=== PATIENT | female | born 1930 | race Caucasian/White ===

== ENCOUNTER → 2016-07-08 | Outpatient (CLI) | payer OTHER, BC ==
[~2016-07-08] MED LIST: ACCL20 PO; BIOT1TAB2 PO; CALCGRA15 PO; CHOL1CAP57 PO; COEN200C4 PO; CRAN1CAP15 PO; CYAN1LOZ2 SL; DESL1TAB5 PO; DICL1GEL12 TP; ERGO500037 PO; MAXAIR; MINO50TA PO; MULTLIQ PO; NASONEX NAE; NCY50 PO; VITBC PO
[2016-07-08 09:51] LABS: BASO % 0.5 %; BASO ABS # 0.02 K/uL (0-0.2); COMPLETE YES; EOS % 1.6 %; HEMATOCRIT 37.3 % (37-47); IG% 0.2 %; LYMPH % 39.2 %; LYMPH ABS # 1.73 K/uL (1.2-3.4); MEAN CELL VOLUME 89.7 fL (80-100); MEAN CORPUSCULAR HEMOGLOBIN 29.8 pg (25-34); MEAN CORPUSCULAR HGB CONC 33.2 g/dl (32-36); MEAN PLATELET VOLUME 10.4 fL (7.4-10.4); MONO % 11.1 %; NEUT % 47.4 %; PLATELET COUNT 201 K/uL (130-400); RED BLOOD COUNT 4.16 M/uL (4.2-5.4); WHITE BLOOD COUNT 4.41 K/uL (4.8-10.8)
[2016-07-08 09:57] LABS: ALT/SGPT 20 U/L (12-78); BLOOD UREA NITROGEN 27 mg/dl (7-18); BUN/CREATININE RATIO 35.3 (10-20); CALCIUM 8.7 mg/dl (8.5-10.1); CARBON DIOXIDE 21 mmol/L (21-32); CHLORIDE 111 mmol/L (98-107); CREATININE 0.75 mg/dl (0.60-1.20); GLUCOSE 94 mg/dl (70-99); POTASSIUM 3.9 mmol/L (3.5-5.1); SODIUM 145 mmol/L (136-145)
[2016-07-08 10:00] LABS: ALKALINE PHOSPHATASE 55 U/L (45-117); AST/SGOT 14 U/L (15-37)
--- NOTE | 2016-08-06 09:40 | CODING QUERY MEDICAL NECESSITY ---
CQSUPPORTING DIAGNOSIS NEEDED A supporting diagnosis is required for the test/procedure performed on this patient in order for us to be reimbursed by the patient's insurance. Please provide a supporting diagnosis for the following test/procedure listed below next to the test name along with your signature. *If there is no additional diagnosis for this patient that would support the following test/procedure please document that below next to the test/procedure. Test(s)/Procedure(s) that require a supporting diagnosis: DOS 07/08/16 VITAMIN D TEST Provider Signature: Date: Thank you Anuja Kelley Health Information Management Once completed, please kindly fax back to [phone] For questions please call [phone]
== END | disposition home or self-care (01) ==
LOC: C.LAB1850 08:21
PROVIDERS: ATTEND Internal Medicine
DX: C50.212 Malignant neoplasm of upper-inner quadrant of left female breast (principal); E55.9 Vitamin D deficiency, unspecified

== ENCOUNTER → 2016-10-19 | Outpatient (CLI) | payer OTHER, BC | END | disposition home or self-care (01) | LOC: C.LAB 07:59 | PROVIDERS: ATTEND Internal Medicine | DX: M85.80 Other specified disorders of bone density and structure, unspecified site (principal) ==

== ENCOUNTER → 2017-02-20 | Outpatient (CLI) | payer OTHER, BC ==
--- NOTE | 2017-02-20 15:58 | MAMMOGRAPHY REPORT ---
UNILATERAL RIGHT DIGITAL SCREENING MAMMOGRAM TOMOSYNTHESIS WITH CAD: 02/20/2017 CLINICAL HISTORY: Asymptomatic. Personal history of breast cancer. TECHNIQUE: Breast tomosynthesis in addition to standard 2D mammography was performed. Current study was also evaluated with a Computer Aided Detection (CAD) system. COMPARISON: Comparison is made to exams dated: 02/15/2015 mammogram, 02/19/2016 mammogram, 10/25/2014 m ammogram, and 08/27/2005 mammogram - [facility]. BREAST COMPOSITION: The tissue of the right breast is heterogeneously dense, which may obscure small masses. FINDINGS: No suspicious mass, architectural distortion or cluster of microcalcifications is seen in the right breast. There has been no significant interval change compared to prior exams. Status pos t left mastectomy. IMPRESSION: ACR BI-RADS CATEGORY 1: NEGATIVE There is no mammographic evidence of malignancy in the right breast. A 1 year screening mammogram is recommended. The patient will receive written notification of the results. Approximately 10% of breast cancers are not detected with mammography. A negative mammographic report should not delay biopsy if a clinically suggestive mass is present. Maribell Denis M.D. ah/:02/20/2017 14:29:01 Scrap Sawyer: Annamarie MEJÍA(Roger)(M), [facility] letter sent: Normal 1/2 BI-RADS Code: ACR BI-RADS Category 1: Negative
== END | disposition home or self-care (01) ==
LOC: C.MAMM 09:06
PROVIDERS: ATTEND Internal Medicine Rheumatology
DX: Z12.31 Encounter for screening mammogram for malignant neoplasm of breast (principal); M85.89 Other specified disorders of bone density and structure, multiple sites; E55.9 Vitamin D deficiency, unspecified; E61.8 Deficiency of other specified nutrient elements; Z85.3 Personal history of malignant neoplasm of breast; Z08 Encounter for follow-up examination after completed treatment for malignant neoplasm

== ENCOUNTER 2017-06-15 10:25 | Emergency (ER) | payer OTHER, BC ==
[~2017-06-15] VITALS: Ht 165.1 cm; Wt 60.0 kg
[2017-06-15 10:39] VITALS: BP 137/81; PULSE 73; TEMP 36.8; O2SAT 96; Ht 165.1 cm; Wt 60.0 kg
[2017-06-15] MEDS ORDERED: NYSTATIN SUSP 500,000 U/5 ML UDC PO STA (11:03)
[2017-06-15] MEDS ORDERED: NYSS/ PO (11:07)
[2017-06-15] MEDS ORDERED: COEN1CAP37 PO (11:11)
[2017-06-15] MEDS ORDERED: CRAN1CAP PO (11:11)
[2017-06-15] MEDS ORDERED: CLR10 PO (11:12)
--- NOTE | 2017-06-15 11:32 | EMERGENCY ROOM VISIT NOTE ---
History Report prepared by Inga: Tito Quevedo Under the Supervision of: Dr. Antonio Franco M.D. First contact with patient: 10:46 Chief Complaint: OTHER COMPLAINT Stated Complaint: DAY 3 OF MOUTH IRRITATION,POSSIBLE THRUSH History of Present Illness The patient is a 87 year old female who presents to the Emergency Room with complaints of mouth irritation that began three days ago. At this time, she began to notice what she describes as a "pile of sand mixed with applesauce" in the back of her mouth. She has never had thrush before but notes that her recently had it. She drank and ate this morning and states that it helped clear some of the substance in her throat. Pt denies LOC, headache, fevers, chills, diaphoresis, visual changes, neck pain, chest pain, breathing difficulties, nausea, vomiting, abdominal pain, back pain, melena, hematochezia , urinary symptoms, numbness, weakness, lymphadenopathy, rash, or other complaints. She denies any recent antibiotics. She feels like her dentures are fitting normally. Source of History: patient Onset: 3 days ago Position: throat Symptom Intensity: moderate Quality: other (Irritation) Timing: constant Note: She has a substance to the back of her throat. Review of Systems See HPI for pertinent positives and negatives. A total of six systems were reviewed and were otherwise negative. Past Medical & Surgical Medical Problems: (1) Asthma (2) Fibromyalgia (3) Gastroesophageal reflux disease (4) Rosacea Family History Omitted due to old age Social History Smoking Status: Never Smoker Alcohol Use: none Marital Status: Housing Status: lives with significant other Occupation Status: retired Current/Historical Medications Scheduled Biotin (Biotin), 5 MG PO DAILY Calcium Citrate (Calcium Citrate), 1 TSP PO DAILY Cholecalciferol (Vitamin D3), 1,000 UNIT PO DAILY Coenzyme Q10 (Ubidecarenone) (Co Q-10), 200 MG PO DAILY Cranberry-Vitamin C-Vitamin E (Cranberry Concentrate), 1 CAP PO DAILY Cyanocobalamin (Vitamin B 12), 500 MCG SL DAILY Ergocalciferol (Vitamin D 08731 Unit), 50,000 UNIT PO TW Loratadine (Claritin), 10 MG PO DAILY Multiple Vitamins W/ Minerals (Centrum), 1 TBS PO DAILY Nystatin (Nystatin Suspension), 5 ML PO QID Vitamin B Complex (Vitamin B Complex), 1 TABLET PO DAILY Zafirlukast (Zafirlukast), 20 MG PO DAILY Scheduled PRN Diclofenac Sodium (Topical) (Voltaren 1% Top Gel), 1 APPLN TP BID PRN for PRN Tapentadol HCl (Nucynta), 50 MG PO Q8 PRN for Pain Miscellaneous Medications Minocycline Hcl (Minocycline Hcl), 50 MG PO Allergies Coded Allergies: Erythromycin (Unverified Allergy, Severe, RASH, 06/15/17) Meperidine (Unverified Allergy, Severe, Dizziness and "itchiness" all over , 06/15/17) Morphine (Unverified Allergy, Severe, Dizziness and "itchiness" all over, 06/15/17) Adhesives (Verified Allergy, Mild, RASH, 06/15/17) Isopropyl Alcohol (Verified Allergy, Mild, RASH, 06/15/17) SAID CAN USE ONE WIPE TO DO IV. Diphenhydramine (Verified Allergy, Unknown, SEVERE SWEATING AND ITCHING, ) ALLERGY LISTED ON [facility] RECORDS Metaproterenol (Verified Allergy, Unknown, RASH, 06/15/17) Metronidazole (Verified Allergy, Unknown, REDNESS, 06/15/17) CAUSES INCREASING REDNESS TO AREA APPLIED ON NOSE Povidone Iodine (Verified Allergy, Unknown, RASH, 06/15/17) Theophylline (Verified Allergy, Unknown, FROM UNCODED ALL., 06/15/17) Zinc Oxide (Verified Allergy, Unknown, RASH, 06/15/17) Nitroglycerin (Verified Adverse Reaction, Intermediate, HYPOTENSION AND PT PASSES OUT, 06/15/17) ALLERGY LISTED ON [facility] RECORDS Tramadol (Verified Adverse Reaction, Intermediate, LOW BP, 06/15/17) Guaifenesin (Verified Adverse Reaction, Unknown, FROM VICODIN COUGH SYRUP- VERTIGO,HYPERALERTNESS, 06/15/17) CAUSES VERTIGO AND HYPER ALERTNESS PER PT Hydrocodone (Verified Adverse Reaction, Unknown, "VICODIN COUGH MED", MORPHINE AND LORTAB OK, 06/15/17) PT HAS RECEIVED MORPHINE AND APAP/HYDROCODE IN ER ON PRIOR ADMISSION. PT STATES HER REACTION HAS ONLY BEEN WITH COUGH MEDICINE HAVING HYDROCODONE AND GUIAFENESIN IN IT AND IT CAUSES VERTIGO AND HYPER ALERTNESS WITH EXCESSIVE WAKEFULLNESS. Lorazepam (Verified Adverse Reaction, Unknown, oversedation,fecal incontinence, 06/15/17) Physical Exam Vital Signs Date Time Temp Pulse Resp B/P (MAP) Pulse Ox O2 Delivery O2 Flow Rate FiO2 06/15/17 10:39 36.8 73 18 137/81 96 Room Air Physical Exam GENERAL: Awake, alert, well-appearing, in no distress HENT: Normocephalic, atraumatic. Oropharynx reveals scattered white patches to the pallet and oral mucosa. Tongue appeared to be normal. EYES: Normal conjunctiva. Sclera non-icteric. NECK: Supple. No nuchal rigidity. FROM. No JVD. No adenopathy. RESPIRATORY: Clear to auscultation. CARDIAC: Regular rate, normal rhythm. Extremities warm and well perfused. Pulses equal. MUSCULOSKELETAL: Chest examination reveals no tenderness. No joint edema. NEURO: Normal sensorium. No sensory or motor deficits noted. SKIN: No rash or jaundice noted. Medical Decision & Procedures Medications Administered Medications (Trade) Dose Ordered Sig/Todd Route Start Time Stop Time Status Last Admin Dose Admin Nystatin (Mycostatin Susp) 5 ml NOW STAT PO 06/15/17 11:03 06/15/17 11:05 DC 06/15/17 11:24 5 ML ED Course 1046: The patient was evaluated in room D5. A complete history and physical exam was performed. 1130: I reevaluated the patient. Discussed results and discharge instructions: She verbalized understanding and agreement. The patient is ready for discharge. Medical Decision The patient presented to the emergency department complaining of a white patches and plaques in her mouth on the oral mucosa. Differential includes thrush, aphthous ulcer, complication of dentures, bacterial infection, as well as others. Physically her exam did seem to be consistent with thrush. The patient was ordered a dose of nystatin swish and swallow. A prescription was sent to her pharmacy. I encouraged her follow-up closely with her primary physician. If she worsens in any way she will be back. By the evaluation outlined above other emergent etiologies such as those listed in the differential, as well as others, were deemed relatively unlikely. The patient was educated about the findings as listed above. All questions were answered and the patient was pleased with the treatment. Return instructions were outlined and the patient was discharged in stable condition. The patient was referred to her PCP for follow-up for a recheck of the current condition. Medication Reconcilliation Current Medication List: was personally reviewed by me Blood Pressure Screening Patient's blood pressure: Elevated blood pressure Blood pressure disposition: Referred to PCP Impression Primary Impression: Thrush Adalidibe Attestation The scribe's documentation has been prepared under my direction and personally reviewed by me in its entirety. I confirm that the note above accurately reflects all work, treatment, procedures, and medical decision making performed by me. Departure Information Dispostion Home / Self-Care Prescriptions Nystatin (Nystatin Suspension) 1 Ml Susp 5 ML PO QID for 7 Days, #140 ML Prov: Antonio Franco MD 06/15/17 Referrals Foster Garcia M.D. (PCP) Forms HOME CARE DOCUMENTATION FORM, IMPORTANT VISIT INFORMATION, WORK / SCHOOL INSTRUCTIONS Patient Instructions My [facility] Additional Instructions Nystatin swish and swallow 5 mL's 4 times a day for one week. Continue current medications. Return to the ER immediately for spreading redness, fevers, pus-like drainage, severe pain, inability to swallow, difficulty breathing, or as needed. Follow-up with your primary care physician in 2 to 3 days for a recheck of your current condition.
== END 2017-06-15 11:35 | disposition home or self-care (01) ==
LOC: C.EDB 10:28 → C.EDD 11:35
DX: B37.0 Candidal stomatitis (principal); J45.909 Unspecified asthma, uncomplicated; R03.0 Elevated blood-pressure reading, without diagnosis of hypertension

== ENCOUNTER 2019-05-21 10:16 | Inpatient (IN) ==
[2019-05-21] MEDS ORDERED: ONDANSETRON INJ 2 MG/ML 2 ML VIAL IV STA (11:10)
[2019-05-21] MEDS ORDERED: SODIUM CHLORIDE 0.9% 1000ML 1,000 ML IV SCH (11:15)
[2019-05-21 12:00] LABS: Appearance Urine Clear (Clear); Bacteria Urine Automated Negative (Negative); Bilirubin Urine Negative (Negative); Blood Urine 1+ (Negative); Color Urine Yellow; Glucose Urine UA Negative (Negative); Ketones Urine Negative (Negative); Leukocyte Esterase Urine Negative (Negative); Nitrite Urine Negative (Negative); Protein Urine Negative (Negative); Urobilinogen Urine Negative (Negative)
[2019-05-21 12:05] LABS: Basophils # (auto) 0.01 K/uL (0-0.2); Basophils % (auto) 0.2 %; Eosinophils # (auto) 0.01 K/uL (0-0.5); Eosinophils % (auto) 0.2 %; Hematocrit (blood only) 38.4 % (37-47); Hemoglobin 12.7 g/dL (12.0-16.0); Immature Granulocytes # (auto) 0.01 K/uL (0.00-0.02); Immature Granulocytes % (auto) 0.2 %; Lymphocytes # (auto) 1.09 K/uL (1.2-3.4); Lymphocytes % (auto) 19.1 %; Mean Corpuscular Hemoglobin 29.9 pg (25-34); Mean Corpuscular Hgb Conc 33.1 g/dL (32-36); Mean Corpuscular Volume 90.4 fL (80-100); Mean Platelet Volume 9.9 fL (7.4-10.4); Monocytes # (auto) 0.38 K/uL (0.11-0.59); Monocytes % (auto) 6.7 %; Neutrophils % (auto) 73.6 %; Platelet Count 224 K/uL (130-400); RDW Standard Deviation 43.1 fL (36.4-46.3); Red Blood Count 4.25 M/uL (4.2-5.4)
[2019-05-21 12:21] LABS: Albumin Level 3.9 gm/dl (3.4-5.0); BUN Creatinine Ratio 26.3 (10-20); Calcium 8.9 mg/dl (8.5-10.1); Creatinine Clr Calc Pharmacy 45.7 ml/min; Est GFR (African American) 79.2; Est GFR (Non-African American) 68.4; Potassium 3.8 mmol/L (3.5-5.1)
[2019-05-21] MEDS: fentaNYL citrate 100 MCG/2 ML VIAL IV PRN ×2 (12:21→14:00)
--- NOTE | 2019-05-21 12:23 | Ultrasound Report ---
ULTRASOUND RIGHT UPPER QUADRANT ABDOMEN CLINICAL HISTORY: Right upper quadrant abdominal pain. COMPARISON STUDY: Abdominal CT dated 04/27/2019. TECHNIQUE: Real-time, grayscale, and color flow sonography of the right upper quadrant of the abdomen was performed. Images are reviewed in the transverse and longitudinal planes. FINDINGS: Liver: The liver is normal in size and echotexture. There is no intrahepatic biliary ductal dilatatio n. The main portal vein is patent. Gallbladder: There are large calcified shadowing gallstones. The gallbladder is distended, the gallbl adder wall is top normal in thickness measuring up to 3 mm. No pericholecystic fluid is identified. A sonographic Golden's sign is reportedly absent. The common bile duct measures up to 0.6 cm in diamet er. Pancreas: Visualized portions of the pancreatic head and body are normal in appearance. Right kidney: Survey images of the right kidney demonstrate normal size and echotexture. There is no hydronephrosis. Ascites: None. IMPRESSION: The gallbladder is distended and there are numerous calcified gallstones. The gallbladder wall is top normal in thickness and a sonographic Golden's sign is reportedly absent. Findings are e quivocal for acute cholecystitis which is not excluded. If there is strong clinical concern for saritha cystitis a nuclear hepatobiliary scan could be considered to assess for patency of the cystic duct. ACT 112: Negative or not required by law. Electronically signed by: David Bazan M.D. 05/21/2019 12:22 PM
[2019-05-21 12:24] LABS: Albumin Globulin Ratio 1.1 (0.9-2); Bilirubin,Total 0.6 mg/dl (0.2-1); Globulin 3.7 gm/dl (2.5-4.0); Total Protein 7.6 gm/dl (6.4-8.2)
[2019-05-21] MEDS ORDERED: LORazepam 0.5 MG/1 ML VIAL IV STA (12:33)
--- NOTE | 2019-05-21 13:19 | Emergency Department Note ---
Entered by Jj Frey acting as a scribe for History of Present Illness General Chief complaint: Back Injury/Pain Stated complaint: BACK PAIN Source: patient History of Present Illness Provider complaint: Back pain Onset (ago): day(s) 1 Location: back Severity: similar to prior episodes Pain Consistency: + constant Maximum Pain Intensity: 10 Current Pain Intensity: 10 Quality: + stabbing Relieved By: + medication Associated symptoms: + nausea/vomiting (No vomiting) The patient is an 89 year old female who presents to the Emergency Room with complaints of constant lower back pain that has been an issue for more than 15 years but became acutely worse last night. The patient rates the pain as a 10/10 and notes it is a stabbing sensation. The patient states she took a 5mg oxycodone around 03:00 and it did temporarily relieve her symptoms for a little over an hour. The patient also endorses constant nausea and states she had a recent CT done that showed gallstones. The patient denies any vomiting. Home Medications Home Medications Medication Instructions Recorded Confirmed Type zafirlukast 20 mg tablet See Rx Instructions .ROUTE 01/22/19 05/21/19 Rx .COMPLEX #60 tablet zoledronic nsug-jmcvvpwo-tmzst 5 5 mg IV YEARLY #100 ml 01/22/19 05/21/19 Rx mg/100 mL in mannitol 5 %-water intravenous piggybck cranberry conc-ascorbic acid 1 cap PO DAILY 01/26/19 05/21/19 History loratadine 10 mg tablet 10 mg PO DAILY PRN tab 01/26/19 05/21/19 History vitamin B complex 1 cap PO DAILY 01/26/19 05/21/19 History acetaminophen 500 mg capsule 500 mg PO BID cap 02/18/19 05/21/19 History biotin 5 mg capsule 5 mg PO QAM 02/18/19 05/21/19 History coenzyme Q10 10 10 mg capsule 10 mg PO DAILY cap 02/18/19 05/21/19 History minocycline 50 mg capsule 50 mg PO QAM 02/18/19 05/21/19 History calcium carbonate-vitamin D3 1 ea PO BIDM 05/21/19 05/21/19 History diclofenac sodium 4 gm TOP UD 05/21/19 05/21/19 History ergocalciferol (vitamin D2) 50,000 units PO TUFR@1200 05/21/19 05/21/19 History qrcyxgth-xpr-sxktvow gluconate 15 ml PO QAM 05/21/19 05/21/19 History [Centrum] oxycodone 5 mg PO UD 05/21/19 05/21/19 History Allergies Allergy/AdvReac Type Severity Reaction Status Date / Time erythromycin base Allergy Severe RASH Unverified 05/21/19 11:42 meperidine Allergy Severe Dizziness Unverified 05/21/19 11:42 and "itchiness" all over morphine Allergy Severe Dizziness Unverified 05/21/19 11:42 and "itchiness" all over adhesive Allergy Mild RASH Verified 05/21/19 11:42 isopropyl alcohol Allergy Mild RASH Verified 05/21/19 11:42 diphenhydramine Allergy Unknown SEVERE Verified 05/21/19 11:42 SWEATING AND ITCHING metaproterenol Allergy Unknown RASH Verified 05/21/19 11:42 metronidazole Allergy Unknown REDNESS Verified 05/21/19 11:42 povidone-iodine Allergy Unknown RASH Verified 05/21/19 11:42 theophylline Allergy Unknown FROM Verified 05/21/19 11:42 UNCODED ALL. zinc oxide Allergy Unknown RASH Verified 05/21/19 11:42 nitroglycerin AdvReac Intermediate HYPOTENSION Verified 05/21/19 11:42 AND PT PASSES OUT tramadol AdvReac Intermediate LOW BP Verified 05/21/19 11:42 guaifenesin AdvReac Unknown FROM Verified 05/21/19 11:42 VICODIN COUGH SYRUP-VERTIGO,HYPERALERTNESS hydrocodone AdvReac Unknown "VICODIN Verified 05/21/19 11:42 COUGH MED",MORPHINE AND LORTAB OK lorazepam AdvReac Unknown oversedation,fecal Verified 05/21/19 11:42 incontinence Past Med/Surg History Medical History Asthma (Chronic 02/02/13) Breast cancer (Acute) "Breast cancer, left breast, invasive ductal carcinoma, grade 3, 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, pT2N0, stage IIA" Breast cancer of upper-inner quadrant of left female breast (Chronic) Cholelithiasis (Chronic) Desmoid tumor (Acute) 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 Fibromyalgia (Chronic 02/02/13) Gastroesophageal reflux disease (Chronic 09/03/13) Hearing loss (Chronic) Hemorrhage following tonsillectomy and adenoidectomy Intractable back pain (Acute) Kidney stone (Acute) Low back pain (Chronic) Nonallopathic lesion of lumbar region (Acute 04/17/14) Osteoarthritis (Chronic) Osteopenia (Chronic) Peripheral neuropathy (Chronic) Rosacea (Chronic 02/02/13) 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) Vitamin B deficiency (Chronic) Surgical History H/O: hysterectomy History of colostomy (Chronic) History of mastectomy (Chronic) S/P gastric surgery S/P small bowel resection Family History Father Acute myocardial infarction History of heart valve replacement Congestive heart failure Mother Stroke syndrome Cardiomegaly Other Family history non-contributory Social History Preferred Language: Romanian Communication Ability: Effective 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 and A total of 10 systems reviewed and were otherwise negative Physical Exam Vital Signs Vital Signs - 24 hr 05/21/19 10:21 05/21/19 12:25 05/21/19 12:30 Temperature 36.7 C Temperature Source Oral Pulse Rate 74 72 74 Pulse Rate from SpO2 Sensor 73 74 Pulse Rhythm Regular Pulse Strength Normal Respiratory Rate 22 24 19 Respiratory Effort / Characteristics Non-Labored Spontaneous Respiratory Depth Normal Respiratory Pattern Regular Blood Pressure 173/95 H Blood Pressure Mean 121 Blood Pressure Position Sitting Pulse Oximetry 99 94 95 Oxygen Delivery Method Room Air Sepsis Recent Fever Within 48 Hours No Sepsis Action Taken by Nursing No Action Required 05/21/19 12:31 05/21/19 13:00 05/21/19 13:01 Temperature Temperature Source Pulse Rate 72 72 71 Pulse Rate from SpO2 Sensor 73 72 71 Pulse Rhythm Pulse Strength Respiratory Rate 18 12 15 Respiratory Effort / Characteristics Respiratory Depth Respiratory Pattern Blood Pressure 193/84 H 148/72 H Blood Pressure Mean 108 99 Blood Pressure Position Pulse Oximetry 96 94 94 Oxygen Delivery Method Sepsis Recent Fever Within 48 Hours Sepsis Action Taken by Nursing 05/21/19 13:30 05/21/19 13:31 05/21/19 14:00 Temperature Temperature Source Pulse Rate 76 76 74 Pulse Rate from SpO2 Sensor 76 76 73 Pulse Rhythm Pulse Strength Respiratory Rate 20 19 19 Respiratory Effort / Characteristics Respiratory Depth Respiratory Pattern Blood Pressure 165/71 H 172/87 H Blood Pressure Mean 102 115 Blood Pressure Position Pulse Oximetry 97 97 97 Oxygen Delivery Method Sepsis Recent Fever Within 48 Hours Sepsis Action Taken by Nursing 05/21/19 14:01 Temperature Temperature Source Pulse Rate 75 Pulse Rate from SpO2 Sensor 75 Pulse Rhythm Pulse Strength Respiratory Rate 21 Respiratory Effort / Characteristics Respiratory Depth Respiratory Pattern Blood Pressure Blood Pressure Mean Blood Pressure Position Pulse Oximetry 98 Oxygen Delivery Method Sepsis Recent Fever Within 48 Hours Sepsis Action Taken by Nursing Vital signs reviewed. General: Uncomfortable-appearing elderly female HEENT: No scleral icterus, PERRLA, neck supple. Atraumatic. Cardiovascular: Regular rate and rhythm, no extra sounds. Pulmonary: Clear to auscultation bilaterally, normal work of breathing. Abdomen: Soft, tender right upper quadrant with a fistula/ostomy to the right mid abdomen, nondistended, positive bowel sounds. Musculoskeletal: Atraumatic, no peripheral edema. No CVA tenderness. Neurologic: Patient awake alert and oriented x 3. Skin: Warm, dry, no rash Course Course 1109: Past medical records reviewed. The patient was evaluated in room C09, and a complete history and physical examination were performed. 1203: I spoke to nuclear medicine regarding a possible Hida scan. They informed me that we would need to wait 4 hours since the last pain medication dose and 6 hours if you want ejection fracture. He is not able to do this before 16:00. 1240: I reevaluated the patient and she is still in significant pain so I am ordering more pain medications. 1318: I updated the patient with results and we discussed the treatment plan. She is agreeable with the plan. 1336: I discussed the patient's case with Dr. Shaver - [facility] Hospitalist and she agreed to accept the patient for further evaluation. Consultations Consultation #1: I discussed the patient's case with Dr. Shaver - [facility] Hospitalist and she agreed to accept the patient for further evaluation. Time: 13:36 Administered Medications Discontinued Medications Fentanyl Citrate (Fentanyl Citrate) 25 mcg IV Q15M PRN PRN Reason: Pain Stop: 06/04/19 11:09 Last Admin: 05/21/19 14:00 Dose: 25 mcg Documented by: [id number] Admin: 05/21/19 12:21 Dose: 25 mcg Documented by: [id number] Sodium Chloride (Nss 1000ml) 1,000 mls @ 125 mls/hr IV .Q8H KELLI Stop: 06/20/19 11:14 Last Admin: 05/21/19 12:20 Dose: 125 mls/hr Documented by: [id number] Lorazepam (Ativan) 0.5 mg in 1 mls @ 1 mls/min IV NOW STA Stop: 05/21/19 12:34 Last Admin: 05/21/19 12:50 Dose: 1 mls/min Documented by: [id number] Ondansetron HCl (Zofran) 4 mg IV NOW STA Stop: 05/21/19 11:11 Last Admin: 05/21/19 12:21 Dose: 4 mg Documented by: [id number] Medical Decision Making Differential Diagnosis Differential diagnoses includes but is not limited to gastritis, peptic ulcer disease, GERD, gallbladder disease, pancreatitis, small bowel obstruction, acute coronary syndrome, pericarditis, ischemic bowel, irritable bowel disease, irritable bowel syndrome, appendicitis, diverticulitis, malignancy, hernia, urinary tract infection, torsion, perforation, trauma, infectious. Medical Records Attestation: I reviewed the patient's medical records. Home Medications Current Medication List: was personally reviewed by oh Laboratory Data Attestation: I reviewed the patient's lab results. Result diagrams: 05/21/19 11:48 05/21/19 11:48 Lab Results 05/21/19 05/21/19 05/21/19 Range/Units 11:34 11:48 11:48 WBC 5.70 (4.8-10.8) K/uL RBC 4.25 (4.2-5.4) M/uL Hgb 12.7 (12.0-16.0) g/dL Hct 38.4 (37-47) % MCV 90.4 (80-100) fL MCH 29.9 (25-34) pg MCHC 33.1 (32-36) g/dL RDW Std Deviation 43.1 (36.4-46.3) fL RDW Coeff of [place] 13.0 (11.5-14.5) % Plt Count 224 (130-400) K/uL MPV 9.9 (7.4-10.4) fL Immature Gran % (Auto) 0.2 % Neut % (Auto) 73.6 % Lymph % (Auto) 19.1 % [place] % (Auto) 6.7 % Eos % (Auto) 0.2 % Baso % (Auto) 0.2 % Immature Gran # (Auto) 0.01 (0.00-0.02) K/uL Neut # (Auto) 4.20 (1.4-6.5) K/uL Lymph # (Auto) 1.09 L (1.2-3.4) K/uL [place] # (Auto) 0.38 (0.11-0.59) K/uL Eos # (Auto) 0.01 (0-0.5) K/uL Baso # (Auto) 0.01 (0-0.2) K/uL Sodium 137 (136-145) mmol/L Potassium 3.8 (3.5-5.1) mmol/L Chloride 106 (98-107) mmol/L Carbon Dioxide 27 (21-32) mmol/L Anion Gap 4.0 (3-11) BUN 21 H (7-18) mg/dl Creatinine 0.78 (0.6-1.2) mg/dl Est Cr Clr Drug Dosing 45.7 ml/min Est GFR ( Amer) 79.2 Est GFR (Non-Af Amer) 68.4 BUN/Creatinine Ratio 26.3 H (10-20) Glucose 103 H (70-99) mg/dl Calcium 8.9 (8.5-10.1) mg/dl Total Bilirubin 0.6 (0.2-1) mg/dl AST 12 L (15-37) U/L ALT 21 (12-78) U/L Alkaline Phosphatase 77 (45-117) U/L Total Protein 7.6 (6.4-8.2) gm/dl Albumin 3.9 (3.4-5.0) gm/dl Globulin 3.7 (2.5-4.0) gm/dl Albumin/Globulin Ratio 1.1 (0.9-2) Lipase 175 (73-393) U/L Urine Color Yellow Urine Appearance Clear (Clear) Urine pH 5.0 (4.5-7.5) Ur Specific [place] 1.020 (1.000-1.030) Urine Protein Negative (Negative) Urine Glucose (UA) Negative (Negative) Urine Ketones Negative (Negative) Urine Blood 1+ H (Negative) Urine Nitrite Negative (Negative) Urine Bilirubin Negative (Negative) Urine Urobilinogen Negative (Negative) Ur Leukocyte Esterase Negative (Negative) Urine WBC (Auto) 1-5 (0-5) /hpf Urine RBC (Auto) 5-10 H (0-4) /hpf U Hyaline Cast (Auto) 1-5 (0-5) /lpf U Epithel Cells (Auto) 5-10 H (0-5) /lpf Urine Bacteria (Auto) Negative (Negative) Imaging Data Radiologist's Impression: Radiology results as stated below per my review and the radiologist's interpretation: ULTRASOUND RIGHT UPPER QUADRANT ABDOMEN CLINICAL HISTORY: Right upper quadrant abdominal pain. COMPARISON STUDY: Abdominal CT dated 04/27/2019. TECHNIQUE: Real-time, grayscale, and color flow sonography of the right upper q uadrant of the abdomen was performed. Images are reviewed in the transverse and longitudinal planes. FINDINGS: Liver: The liver is normal in size and echotexture. There is no intrahepatic biliary ductal dilatation. The main portal vein is patent. Gallbladder: There are large calcified shadowing gallstones. The gallbladder is distended, the gallbladder wall is top normal in thickness measuring up to 3 mm. No pericholecystic fluid is identified. A sonographic Golden's sign is reportedly absent. The common bile duct measures up to 0.6 cm in diameter. Pancreas: Visualized portions of the pancreatic head and body are normal in appearance. Right kidney: Survey images of the right kidney demonstrate normal size and echotexture. There is no hydronephrosis. Ascites: None. IMPRESSION: The gallbladder is distended and there are numerous calcified gallstones. The gallbladder wall is top normal in thickness and a sonographic Golden's sign is reportedly absent. Findings are equivocal for acute cholecystitis which is not excluded. If there is strong clinical concern for cholecystitis a nuclear hepatobiliary scan could be considered to assess for patency of the cystic duct. ACT 112: Negative or not required by law. Electronically signed by: David Bazan M.D. 05/21/2019 12:22 PM Blood Pressure Blood Pressure Findings: Elevated blood pressure Blood Pressure Disposition: further management by hospitalist MDM Narrative This patient was evaluated and appeared to be in no significant distress. IV access was obtained and laboratory work was drawn. Patient was medicated with IV fentanyl and Zofran. She was hydrated with normal saline solution. Ultrasound the right upper quadrant was performed and reveals evidence of cholelithiasis with top normal thickness gallbladder wall. Patient continued to have discomfort and seemed to be significantly anxious. She was given 0.5 mg of IV Ativan. Patient's laboratory work reveals a normal white blood cell count and normal LFTs. Consultation with nuclear medicine was placed regarding a HIDA scan as recommended by radiology. Patient had received the fentanyl shortly prior to the call which precludes imaging studies for at least 4 hours. Given the patient's age and intractable pain, she will be evaluated by the hospitalist service for further management. I suspect the patient is suffering from a symptomatic cholelithiasis. Patient is aware of the plan and agrees. Impression & Plan Symptomatic cholelithiasis, Abdominal pain, right upper quadrant Discharge Plan Visit Data *Final* Discharge Date/Time: 05/21/19 15:10 Chief Complaint: Back Injury/Pain Stated Complaint: BACK PAIN ED Provider: Anna Boston Discharge Problem: Symptomatic cholelithiasis, Abdominal pain, right upper quadrant Patient Disposition: Admitted As Inpatient Discharge Instructions Interventions: ED Discharge Assessment Last Done: 05/21/19 15:10 The scribe's documentation has been prepared under my direction and personally reviewed by me in its entirety. I confirm that the note above accurately reflects all work, treatment, procedures, and medical decision making performed by me.
--- NOTE | 2019-05-21 14:22 | History & Physical Report ---
Date of Service May 21, 2019 Assessment & Plan (1) Dehydration: 89-year-old female was admitted on 21 May 2019 after c/o acute on chronic left flank pain. Dehydration, acute on chronic left flank pain, fibromyalgia: Patient notes the acute worsening of some chronic left flank pain overnight. No noted fevers, anterior abdominal pain, vomiting, or change in her symptoms from previous history of same. On exam, has some tenderness on light palpation throughout her body consistent with a fibromyalgia flare. No midline spinal tenderness. She may have a bit of spasm due to relative dehydration accounting for her current flare. Given her history of breast cancer, she is at risk for bony metastases, however recent CT a/p did not show any overt bony lesions. - In ED, afebrile, not tachycardic or tachypneic, normal room SpO2. Mild dry oral MM. WBC 5. Normal electrolytes but elevated BUN. - In ED, treated with fentanyl, Zofran, Ativan, and some IVF. Patient says this improved but did not resolve her pain. - Will rehydrate with normal saline IVF at 80 mL an hour. Also provide a small amount of potassium for optimization. - Will treat pain with Tylenol q6h scheduled and Oxycodone 5 mg q8h prn severe pain. Hematuria: UA notes RBC 510 and epithelial cells 510. Patient notes some mild urinary incontinence chronically. Denies any dysuria or increased frequency. - Will rehydrate with IVF. Consider interval UA recheck in the next couple weeks. Elevated blood pressure: In ED as high as 173/95. No noted formal diagnosis of hypertension in her chart. Some of this elevation is likely situational. No evidence of acute end organ dysfunction. Recommend close follow-up upon discharge. Cholelithiasis: Patient notes the same over past few years and states she was told she is not a good surgical candidate. She says she was due to be seen by general surgery as an outpatient this coming Friday (23Dec) with Dr. Denton. Presently is not complaining of anterior abdominal pain and is not focally tender in her RUQ. - In ED, LFTs including AP and lipase were normal. RUQ ultrasound is reported as equivocal for acute cholecystitis but is distended and has multiple calcified gallstones. [Of note, a CT a/p on 26Nov noted a slightly thickened gallbladder wall.] - Will continue to monitor for now. No need for acute surgical evaluation. Ongoing medical issues: - Asthma: No present reports of respiratory symptoms. Continue home zafirlukast. - Peripheral neuropathy: Followed by neurology. Treated with Voltaren gel and Tylenol (both as needed) - Osteoarthritis, osteopenia: At home is on zoledronic acid. - Rosacea: Continue home minocycline. Code status: Full code. Diet: Regular. DVT prophy: Lovenox. PT/OT: Ordered. Disbo: Admit to [facility] for observation. Consulted case management for ongoing resource assistance (given that she lives alone). (2) Left flank pain: (3) Fibromyalgia: (4) Hematuria: (5) Elevated blood pressure reading: (6) Cholelithiasis: (7) Asthma: (8) Peripheral neuropathy: (9) Osteoarthritis: (10) Osteopenia: (11) Rosacea: History of Present Illness Primary Care Provider: Foster Garcia MD 89-year-old female requests evaluation of acute on chronic left flank pain. - Says she has had this same sort of pain for years. At times it will resolve for a couple of weeks. Most recently started again overnight without any known trauma, falls, fevers, or recent feeling of illness. She took an oxycodone which seemed to help but did not last long. Says that it radiates to various and different areas over the years, presently radiating to around her left hip. - Patient notes she also has some urinary incontinence. She says she has been seen by Dr. Cortez of urology and was told that her bladder does not completely empty. She presently denies any dysuria or increased frequency. - On review of systems review of her past medical history, patient says she was initially advised to have a radical mastectomy for her breast cancer diagnosed around 2014. She elected not to do this and was told that she is at increased risk for spread. - She also notes she has a history of gallbladder issues for many years now as well. At one point she says she was evaluated by Dr. Denton of general surgery and told that she was a very poor surgical candidate. The exact details are unclear. - Socially, patient says that she lives at home alone and is quite independent. She says she has home caregivers that come to her place near daily. However, she normally gets around driving herself. She says her only family nearby is her daughter who lives very close but has a history of schizophrenia. For example, patient was due to drive her daughter to a doctor's appointment today. - Past medical history includes asthma, breast cancer (2015), cholelithiasis, fibromyalgia, GERD, peripheral neuropathy, kidney stones, intractable back pain, vitamin B12 deficiency, sclerosing mesenteritis, short bowel syndrome, osteoarthritis, osteopenia, rosacea, hearing loss - Past surgical history includes colostomy (for desmoid tumor), left mastectomy, hysterectomy, tonsillectomy and adenoidectomy, foot surgery. - Social history includes denying smoking or alcohol use. Says she lives independently alone. Has some help with daytime caregivers. Only family nearby is a daughter who has schizophrenia, thus patient is daughters primary caregiver. Allergies Allergy/AdvReac Type Severity Reaction Status Date / Time erythromycin base Allergy Severe RASH Unverified 05/21/19 11:42 meperidine Allergy Severe Dizziness Unverified 05/21/19 11:42 and "itchiness" all over morphine Allergy Severe Dizziness Unverified 05/21/19 11:42 and "itchiness" all over adhesive Allergy Mild RASH Verified 05/21/19 11:42 isopropyl alcohol Allergy Mild RASH Verified 05/21/19 11:42 diphenhydramine Allergy Unknown SEVERE Verified 05/21/19 11:42 SWEATING AND ITCHING metaproterenol Allergy Unknown RASH Verified 05/21/19 11:42 metronidazole Allergy Unknown REDNESS Verified 05/21/19 11:42 povidone-iodine Allergy Unknown RASH Verified 05/21/19 11:42 theophylline Allergy Unknown FROM Verified 05/21/19 11:42 UNCODED ALL. zinc oxide Allergy Unknown RASH Verified 05/21/19 11:42 nitroglycerin AdvReac Intermediate HYPOTENSION Verified 05/21/19 11:42 AND PT PASSES OUT tramadol AdvReac Intermediate LOW BP Verified 05/21/19 11:42 guaifenesin AdvReac Unknown FROM Verified 05/21/19 11:42 VICODIN COUGH SYRUP-VERTIGO,HYPERALERTNESS hydrocodone AdvReac Unknown "VICODIN Verified 05/21/19 11:42 COUGH MED",MORPHINE AND LORTAB OK lorazepam AdvReac Unknown oversedation,fecal Verified 05/21/19 11:42 incontinence Home Medications Home Medications Medication Instructions Recorded Confirmed Type zafirlukast mg tablet See Rx Instructions .ROUTE 01/22/19 05/21/19 Rx .COMPLEX #60 tablet zoledronic qdvs-kynkvyse-yzmzo 5 5 mg IV YEARLY #100 ml 01/22/19 05/21/19 Rx mg/100 mL in mannitol 5 %-water intravenous piggybck cranberry conc-ascorbic acid 1 cap PO DAILY 01/26/19 05/21/19 History loratadine 10 mg tablet 10 mg PO DAILY PRN tab 01/26/19 05/21/19 History vitamin B complex 1 cap PO DAILY 01/26/19 05/21/19 History acetaminophen 500 mg capsule 500 mg PO BID cap 02/18/19 05/21/19 History biotin 5 mg capsule 5 mg PO QAM 02/18/19 05/21/19 History coenzyme Q10 10 10 mg capsule 10 mg PO DAILY cap 02/18/19 05/21/19 History minocycline 50 mg capsule 50 mg PO QAM 02/18/19 05/21/19 History calcium carbonate-vitamin D3 1 ea PO BIDM 05/21/19 05/21/19 History diclofenac sodium 4 gm TOP UD 05/21/19 05/21/19 History ergocalciferol (vitamin D2) 50,000 units PO TUFR@1200 05/21/19 05/21/19 History jerzamnq-qaa-amiojoy gluconate 15 ml PO QAM 05/21/19 05/21/19 History [Centrum] oxycodone 5 mg PO UD 05/21/19 05/21/19 History Past Med/Surg History Medical History Asthma (Chronic 02/02/13) Breast cancer (Acute) "Breast cancer, left breast, invasive ductal carcinoma, grade 3, 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, pT2N0, stage IIA" Breast cancer of upper-inner quadrant of left female breast (Chronic) Cholelithiasis (Chronic) Desmoid tumor (Acute) 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 Fibromyalgia (Chronic 02/02/13) Gastroesophageal reflux disease (Chronic 02/02/13) Hearing loss (Chronic) Hemorrhage following tonsillectomy and adenoidectomy Intractable back pain (Acute) Kidney stone (Acute) Low back pain (Chronic) Nonallopathic lesion of lumbar region (Acute 04/17/14) Osteoarthritis (Chronic) Osteopenia (Chronic) Peripheral neuropathy (Chronic) Rosacea (Chronic 02/02/13) 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) Vitamin B deficiency (Chronic) Surgical History H/O: hysterectomy History of colostomy (Chronic) History of mastectomy (Chronic) S/P gastric surgery S/P small bowel resection Family History Father Acute myocardial infarction History of heart valve replacement Congestive heart failure Mother Stroke syndrome Cardiomegaly Other Family history non-contributory Social History Preferred Language: Swedish Communication Ability: Effective Android Ios Developer Required: No Beliefs That Will Affect Care: None Current Living Situation: Alone Other Information That Helps Us Care for You: No Feels Safe at Home: Yes Safety Concerns: Feels Safe At This Time Smoking Status: Never smoker Do You Dip or Chew Tobacco: No ; Second Hand Exposure: No ; Tobacco Cessation Education Requested by Patient: No Hx Alcohol Use: No Hx Substance Use: Yes substance use type: opiates and painkillers Last Used Substance: Hours (ago) Last Used Substance Other:: 0300 Oxycodone per patient history Review of Systems Review of Systems: Constitutional: Denies fevers, chills, focal weakness Eyes: Denies any visual loss or diplopia ENT: Denies any ear/nose/throat pain or difficulty speaking or swallowing Respiratory: Denies any dyspnea, cough, hemoptysis Cardiovascular: Denies any chest pain or feeling of edema Gastrointestinal: Denies any abdominal pain, vomiting/diarrhea Musculoskeletal: Positive left flank pain. Skin: Denies any known acute rashes or lesions Neuro: Denies any headache, acute focal weakness or numbness, or difficulties with speech or swallow. Physical Exam Physical Exam: GENERAL: Awake, alert, well-appearing, in no acute distress. Very conversational. HENT: Normocephalic, atraumatic. Oropharynx has dry mucous membranes. EYES: Normal conjunctiva. Sclera non-icteric. NECK: Inspection normal. Supple and full ROM. No nuchal rigidity. CARDIAC: +S1S2 RRR, no murmurs. RESPIRATORY: Clear to auscultation. No wheezes or rales. Normal respiratory effort. GI: +BS, soft, non-distended. No overt focal tenderness to palpation including in the right upper quadrant. No rebound or guarding. Ostomy in place, pink and moist. EXTREMITIES: No pedal edema or calf tenderness. Moving all extremities naturally and easily. NEURO: No gross neuro deficits. However, she does have some mild and equally generalized tenderness on palpation of various areas of her body to include her arms, legs, abdomen, and back. She denies any focal tenderness over the th oracic or lumbar spine. Results & Data Vital Signs (Past 12 Hours) Vital Signs Temp Pulse Resp BP Pulse Ox 05/21/19 13:01 71 15 94 05/21/19 13:00 72 12 148/72 H 94 05/21/19 12:31 72 18 193/84 H 96 05/21/19 12:30 74 19 95 05/21/19 12:25 72 24 94 05/21/19 10:21 36.7 C 74 22 173/95 H 99 Laboratory Results 05/21/19 05/21/19 05/21/19 Range/Units 11:48 11:48 11:34 WBC 5.70 (4.8-10.8) K/uL RBC 4.25 (4.2-5.4) M/uL Hgb 12.7 (12.0-16.0) g/dL Hct 38.4 (37-47) % MCV 90.4 (80-100) fL MCH 29.9 (25-34) pg MCHC 33.1 (32-36) g/dL RDW Std Deviation 43.1 (36.4-46.3) fL RDW Coeff of Spencer 13.0 (11.5-14.5) % Plt Count 224 (130-400) K/uL MPV 9.9 (7.4-10.4) fL Immature Gran % (Auto) 0.2 % Neut % (Auto) 73.6 % Lymph % (Auto) 19.1 % [place] % (Auto) 6.7 % Eos % (Auto) 0.2 % Baso % (Auto) 0.2 % Immature Gran # (Auto) 0.01 (0.00-0.02) K/uL Neut # (Auto) 4.20 (1.4-6.5) K/uL Lymph # (Auto) 1.09 L (1.2-3.4) K/uL [place] # (Auto) 0.38 (0.11-0.59) K/uL Eos # (Auto) 0.01 (0-0.5) K/uL Baso # (Auto) 0.01 (0-0.2) K/uL Sodium 137 (136-145) mmol/L Potassium 3.8 (3.5-5.1) mmol/L Chloride 106 (98-107) mmol/L Carbon Dioxide 27 (21-32) mmol/L Anion Gap 4.0 (3-11) BUN 21 H (7-18) mg/dl Creatinine 0.78 (0.6-1.2) mg/dl Est Cr Clr Drug Dosing 45.7 ml/min Est GFR ( Amer) 79.2 Est GFR (Non-Af Amer) 68.4 BUN/Creatinine Ratio 26.3 H (10-20) Glucose 103 H (70-99) mg/dl Calcium 8.9 (8.5-10.1) mg/dl Total Bilirubin 0.6 (0.2-1) mg/dl AST 12 L (15-37) U/L ALT 21 (12-78) U/L Alkaline Phosphatase 77 (45-117) U/L Total Protein 7.6 (6.4-8.2) gm/dl Albumin 3.9 (3.4-5.0) gm/dl Globulin 3.7 (2.5-4.0) gm/dl Albumin/Globulin Ratio 1.1 (0.9-2) Lipase 175 (73-393) U/L Urine Color Yellow Urine Appearance Clear (Clear) Urine pH 5.0 (4.5-7.5) Ur Specific [facility] 1.020 (1.000-1.030) Urine Protein Negative (Negative) Urine Glucose (UA) Negative (Negative) Urine Ketones Negative (Negative) Urine Blood 1+ H (Negative) Urine Nitrite Negative (Negative) Urine Bilirubin Negative (Negative) Urine Urobilinogen Negative (Negative) Ur Leukocyte Esterase Negative (Negative) Urine WBC (Auto) 1-5 (0-5) /hpf Urine RBC (Auto) 5-10 H (0-4) /hpf U Hyaline Cast (Auto) 1-5 (0-5) /lpf U Epithel Cells (Auto) 5-10 H (0-5) /lpf Urine Bacteria (Auto) Negative (Negative) Medications Administered Fentanyl Citrate (Fentanyl Citrate) 25 mcg IV Q15M PRN PRN Reason: Pain Stop: 06/04/19 11:09 Last Admin: 05/21/19 14:00 Dose: 25 mcg Documented by: [id number] Admin: 05/21/19 12:21 Dose: 25 mcg Documented by: [id number] Sodium Chloride (Nss 1000ml) 1,000 mls @ 125 mls/hr IV .Q8H KELLI Stop: 06/20/19 11:14 Last Admin: 05/21/19 12:20 Dose: 125 mls/hr Documented by: [id number] Discontinued Medications Lorazepam (Ativan) 0.5 mg in 1 mls @ 1 mls/min IV NOW STA Stop: 05/21/19 12:34 Last Admin: 05/21/19 12:50 Dose: 1 mls/min Documented by: [id number] Ondansetron HCl (Zofran) 4 mg IV NOW STA Stop: 05/21/19 11:11 Last Admin: 05/21/19 12:21 Dose: 4 mg Documented by: [id number] Code Status & VTE Plan Code Status Full code VTE Prophylaxis Plan VTE Prophylaxis will be ordered: Yes Supervising Physician Co-Signing Physician Notes Pt seen and examined at the bedside with . I was involved in creating assessment and plan with Dr. Bermudez and I agree with his H&P. Physical Exam: GENERAL: Awake, alert, well-appearing, in no acute distress. Very conversational. HENT: Normocephalic, atraumatic. Oropharynx has dry mucous membranes. EYES: Normal conjunctiva. Sclera non-icteric. NECK: Inspection normal. Supple and full ROM. No nuchal rigidity. CARDIAC: +S1S2 RRR, no murmurs. RESPIRATORY: Clear to auscultation. No wheezes or rales. Normal respiratory effort. GI: +BS, soft, non-distended. No overt focal tenderness to palpation including in the right upper quadrant. No rebound or guarding. Ostomy in place, pink and moist. EXTREMITIES: No pedal edema or calf tenderness. Moving all extremities natura lly and easily. NEURO: No gross neuro deficits. However, she does have some mild and equally generalized tenderness on palpation of various areas of her body to include her arms, legs, abdomen, and back. She denies any focal tenderness over the thoracic or lumbar spine. Resident Activity Tracking Resident Involvement: Resident Care Provided Care Provided: Adult [facility] Medicine
[2019-05-21] MEDS ORDERED: LORATADINE 10 MG TAB PO PRN (15:42)
[2019-05-21] MEDS ORDERED: POTASSIUM CHLORIDE 20 MEQ TABCR PO ONE (15:42)
[2019-05-21] MEDS: SODIUM CHLORIDE 0.9% 1000ML 1,000 ML IV SCH (16:09)
[2019-05-21] MEDS: OXYCODONE HCL IR 5 MG TAB (IMMEDIATE RELEASE) PO PRN (16:45)
[2019-05-21] MEDS: HydrALAZINE 10 MG TAB PO PRN (17:17)
[2019-05-21] MEDS: ACETAMINOPHEN 325 MG TAB PO SCH ×2 (17:30→23:50)
[2019-05-21] MEDS: CALCIUM CARBONATE 1250MG TAB PO SCH (17:33)
[2019-05-21] MEDS ORDERED: OXYCODONE HCL IR 5 MG TAB (IMMEDIATE RELEASE) PO STA (17:54)
[2019-05-21] MEDS ORDERED: ENOXAPARIN INJ 30 MG/0.3 ML SYR SQ SCH (18:00)
[2019-05-21] MEDS: ONDANSETRON INJ 2 MG/ML 2 ML VIAL IV PRN (23:08)
[2019-05-21] MEDS: ZAFIRLUKAST 20 MG SCH (23:29)
[2019-05-22] MEDS: SODIUM CHLORIDE 0.9% 1000ML 1,000 ML IV SCH (05:33)
[2019-05-22] MEDS: ACETAMINOPHEN 325 MG TAB PO SCH ×3 (05:34→17:47)
[2019-05-22 07:22] LABS: BUN Creatinine Ratio 23.8 (10-20); Est GFR (African American) 73.5; Est GFR (Non-African American) 63.4; Potassium 4.2 mmol/L (3.5-5.1)
[2019-05-22] MEDS: CALCIUM CARBONATE 1250MG TAB PO SCH ×2 (08:20→17:47)
[2019-05-22] MEDS: VITAMIN B COMPLEX TAB PO SCH (08:20)
[2019-05-22] MEDS: MULTIVITAMIN TAB PO SCH (08:20)
[2019-05-22] MEDS: DICLOFENAC SOD 1% GEL 100 GM TUBE EXT SCH (08:21)
[2019-05-22] MEDS: HydrALAZINE 10 MG TAB PO PRN (08:25)
[2019-05-22] MEDS ORDERED: NON-FORMULARY MEDICATION (Cranberry Conc-Ascorbic Acid 1 CAP) PO SCH (09:00)
[2019-05-22] MEDS ORDERED: NON-FORMULARY MEDICATION (Coenzyme Q10 [Co Q-10] 10 MG) PO SCH (09:00)
[2019-05-22] MEDS ORDERED: NON-FORMULARY MEDICATION (Biotin 5 MG) PO SCH (09:00)
[2019-05-22] MEDS: ZAFIRLUKAST 20 MG SCH ×2 (10:17→16:01)
[2019-05-22 10:54] LABS: Appearance Urine Cloudy (Clear); Bilirubin Urine Negative (Negative); Blood Urine Negative (Negative); Cast Urine Automated 0 /lpf (0-5); Color Urine Yellow; Glucose Urine UA Negative (Negative); Ketones Urine Negative (Negative); Leukocyte Esterase Urine Negative (Negative); Nitrite Urine Negative (Negative); Protein Urine Negative (Negative); Urobilinogen Urine Negative (Negative)
[2019-05-22 11:12] LABS: RBC Urine Automated >30 /hpf (0-4)
[2019-05-22 11:13] LABS: Bacteria Urine Automated 2+ (Negative)
--- NOTE | 2019-05-22 11:49 | Surgery Consultation ---
Date of Consultation May 22, 2019 Assessment & Plan (1) Cholelithiasis: chronic gallstones with thick wall unlikely gallstones are symptomatic would order HIDA if negative would not recommend cholecystectomy Present on Admission?: Yes History of Present Illness Attending Physician: Mirella Shaver MD History of Present Illness The patient is an 89 year old female who presented to the Emergency Room with complaints of constant lower back pain that has been an issue for more than 15 years but became acutely worse last night. She described it as a stabbing sensation. Pain has mainly resolved but multiple other complaints. The patient has nausea and a CT scan done that showed gallstones which have been seen before along with a thick wall which is also chronic. The patient denies any vomiting. She is a poor surgical candidate with many previous operations and a chronic mucous fistula. Allergies Allergy/AdvReac Type Severity Reaction Status Date / Time erythromycin base Allergy Severe RASH Unverified 05/21/19 11:42 meperidine Allergy Severe Dizziness Unverified 05/21/19 11:42 and "itchiness" all over morphine Allergy Severe Dizziness Unverified 05/21/19 11:42 and "itchiness" all over adhesive Allergy Mild RASH Verified 05/21/19 11:42 isopropyl alcohol Allergy Mild RASH Verified 05/21/19 11:42 diphenhydramine Allergy Unknown SEVERE Verified 05/21/19 11:42 SWEATING AND ITCHING metaproterenol Allergy Unknown RASH Verified 05/21/19 11:42 metronidazole Allergy Unknown REDNESS Verified 05/21/19 11:42 povidone-iodine Allergy Unknown RASH Verified 05/21/19 11:42 theophylline Allergy Unknown FROM Verified 05/21/19 11:42 UNCODED ALL. zinc oxide Allergy Unknown RASH Verified 05/21/19 11:42 nitroglycerin AdvReac Intermediate HYPOTENSION Verified 05/21/19 11:42 AND PT PASSES OUT tramadol AdvReac Intermediate LOW BP Verified 05/21/19 11:42 guaifenesin AdvReac Unknown FROM Verified 05/21/19 11:42 VICODIN COUGH SYRUP-VERTIGO,HYPERALERTNESS hydrocodone AdvReac Unknown "VICODIN Verified 05/21/19 11:42 COUGH MED",MORPHINE AND LORTAB OK lorazepam AdvReac Unknown oversedation,fecal Verified 05/21/19 11:42 incontinence Home Medications Home Medications Medication Instructions Recorded Confirmed Type zafirlukast 20 mg tablet See Rx Instructions .ROUTE 01/22/19 05/21/19 Rx .COMPLEX #60 tablet zoledronic msbr-csrwawyr-imhwp 5 5 mg IV YEARLY #100 ml 01/22/19 05/21/19 Rx mg/100 mL in mannitol 5 %-water intravenous piggybck cranberry conc-ascorbic acid 1 cap PO DAILY 01/26/19 05/21/19 History loratadine 10 mg tablet 10 mg PO DAILY PRN tab 01/26/19 05/21/19 History vitamin B complex 1 cap PO DAILY 01/26/19 05/21/19 History acetaminophen 500 mg capsule 500 mg PO BID cap 02/18/19 05/21/19 History biotin 5 mg capsule 5 mg PO QAM 02/18/19 05/21/19 History coenzyme Q10 10 10 mg capsule 10 mg PO DAILY cap 02/18/19 05/21/19 History minocycline 50 mg capsule 50 mg PO QAM 02/18/19 05/21/19 History calcium carbonate-vitamin D3 1 ea PO BIDM 05/21/19 05/21/19 History diclofenac sodium 4 gm TOP UD 05/21/19 05/21/19 History ergocalciferol (vitamin D2) 50,000 units PO TUFR@1200 05/21/19 05/21/19 History oiuyoino-rkk-srdgwlv gluconate 15 ml PO QAM 05/21/19 05/21/19 History [Centrum] oxycodone 5 mg PO UD 05/21/19 05/21/19 History Patient History Medical History Asthma (Chronic 02/02/13) Breast cancer (Acute) "Breast cancer, left breast, invasive ductal carcinoma, grade 3, ER/OH/Her2- 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, pT2N0, stage IIA" Breast cancer of upper-inner quadrant of left female breast (Chronic) Cholelithiasis (Chronic) Desmoid tumor (Acute) 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 Fibromyalgia (Chronic 02/02/13) Gastroesophageal reflux disease (Chronic 02/02/13) Hearing loss (Chronic) Hemorrhage following tonsillectomy and adenoidectomy Intractable back pain (Acute) Kidney stone (Acute) Low back pain (Chronic) Nonallopathic lesion of lumbar region (Acute 04/17/14) Osteoarthritis (Chronic) Osteopenia (Chronic) Peripheral neuropathy (Chronic) Rosacea (Chronic 02/02/13) 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) Vitamin B deficiency (Chronic) Surgical History H/O: hysterectomy History of colostomy (Chronic) History of mastectomy (Chronic) S/P gastric surgery S/P small bowel resection Family History Father Acute myocardial infarction History of heart valve replacement Congestive heart failure Mother Stroke syndrome Cardiomegaly Other Family history non-contributory Social History Preferred Language: Latvian Communication Ability: Effective Spout Worker Required: No Beliefs That Will Affect Care: None Current Living Situation: Alone Other Information That Helps Us Care for You: No Feels Safe at Home: Yes Safety Concerns: Feels Safe At This Time Smoking Status: Never smoker Do You Dip or Chew Tobacco: No ; Second Hand Exposure: No ; Tobacco Cessation Education Requested by Patient: No Hx Alcohol Use: No Hx Substance Use: Yes substance use type: opiates and painkillers Last Used Substance: Hours (ago) Last Used Substance Other:: 0300 Oxycodone per patient history Review of Systems Constitutional: no fever and no chills Respiratory: no dyspnea Cardiovascular: no chest pain Gastrointestinal: + nausea; no abdominal pain, no bloating and no vomiting Genitourinary: no dysuria Musculoskeletal: + back pain Integumentary: no rash Physical Exam Constitutional: WD/WN, vitals as above average body habitus Neck: trachea midline Respiratory: normal respiratory effort, lungs clear to auscultation Cardiovascular: RRR, no murmur, no edema Gastrointestinal (Abdomen): Inspection/Auscultation: abdomen normal to inspection and normal bowel sounds; abdomen not distended Percussion/Palpation: abdomen nontender and no guarding healed incisions and mucous fistula Musculoskeletal: Head/Neck/Chest: normocephalic Skin: no rashes, warm and dry Neurologic: moves all extremities; no focal motor deficits Psychiatric: Orientation: alert and oriented x 3 Results & Data Vital Signs (Past 12 Hours) Vital Signs Temp Pulse Resp BP Pulse Ox 12/21/19 08:00 37.9 C H 66 16 173/87 H 98 Diagnostic Findings ULTRASOUND RIGHT UPPER QUADRANT ABDOMEN CLINICAL HISTORY: Right upper quadrant abdominal pain. COMPARISON STUDY: Abdominal CT dated 04/27/2019. TECHNIQUE: Real-time, grayscale, and color flow sonography of the right upper quadrant of the abdomen was performed. Images are reviewed in the transverse and longitudinal planes. FINDINGS: Liver: The liver is normal in size and echotexture. There is no intrahepatic biliary ductal dilatation. The main portal vein is patent. Gallbladder: There are large calcified shadowing gallstones. The gallbladder is distended, the gallbladder wall is top normal in thickness measuring up to 3 mm. No pericholecystic fluid is identified. A sonographic Golden's sign is reportedly absent. The common bile duct measures up to 0.6 cm in diameter. Pancreas: Visualized portions of the pancreatic head and body are normal in appearance. Right kidney: Survey images of the right kidney demonstrate normal size and echotexture. There is no hydronephrosis. Ascites: None. IMPRESSION: The gallbladder is distended and there are numerous calcified gallstones. The gallbladder wall is top normal in thickness and a sonographic Golden's sign is reportedly absent. Findings are equivocal for acute cholecystitis which is not excluded. If there is strong clinical concern for cholecystitis a nuclear hepatobiliary scan could be considered to assess for patency of the cystic duct.
[2019-05-22] MEDS ORDERED: METOPROLOL TARTRATE 25 MG TAB PO STA (14:53)
--- NOTE | 2019-05-22 15:19 | Hospitalist Progress Note ---
Date of Service May 22, 2019 Assessment & Plan (1) Left flank pain: * Controlled with pain medications currently -- ddx cholecystitis, constipation, nephrolithiasis, pancreatitis. hx nephrolithiasis in past, has seen Dr. Ross from Urology * Low grade temp 100.2F this morning * UA on admission +blood, 5-10 RBC * KUB today to look for evidence of stones -- study inconclusive secondary to stool burden * Repeat UA this afternoon with >30 RBCs, 5-10 WBC, 2+ bacteria, but 10-20 epi -- follow cx results and start empirically on ceftriaxone * Lipase today at 124 wnl * Give miralax, dulcolax pr -- re-evaluation in AM * If abdominal pain persists after constipation resolved, would obtain CT abd /pelvis vs Renal US to further investigate for stone/pyelo * Continue to monitor (2) Hematuria: * As above * Possible hx of stone per patient, although never analyzed -- denies gross hematuria. Does have hx of internal hemorrhoids. * Repeat UA today as above * KUB (3) Dehydration: * Initally admitted for dehydration -- IVF discontinued today as patient with infiltrated IVs and requesting to push PO fluids (4) Fibromyalgia: * Possible fibromyalgia flare (5) Elevated blood pressure reading: * No home medications -- likely secondary to IVF/pain * Elevated -- hydralazine prn * 173/87 today -- 1x lopressor tartrate 25mg this afternoon -- will need to monitor for bradycardia * Continue to monitor -- will need close outpatient follow up (6) Cholelithiasis: * GB U/s equivocal for acute cholecystitis -- patient afebrile, WBC 5.7k today * Patient with outpatient appt for surgery, although cancelled as in HPI * Would rec HIDA scan for further evaluation -- no emergent studies on the weekends -- may need done outpatient if patient no longer inpatient friday * General surgery consult -- appreciate recs (7) Asthma: * Per patient * As zariflukast non-formulary, patient had not been receiving -- could consider alternative but would avoid unless patient with s/sx exacerbation * Monitor (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 Hawk as outpatient -- patient managed with vitamins as outpatient * Voltaren, tylenol as needed * Continue (9) Osteopenia: * Follows with PCP -- most recent Reclast last year * Most recent Thoracic Spine Xray 11/18 with moderate degenerative changes but no acute process * CT abd/pelvis on 04/27 with small hepatic cysts/hypodensities unchanged from previous exams, gallstones present with thickening of wall (10) Osteoarthritis: * As above (11) Rosacea: * Patient on minocycline topical, continue (12) Murmur: * No heart history -- murmur heard on evaluation today * Will obtain EKG, ECHO -- pending (13) Breast cancer of upper-inner quadrant of left female breast: * Hx triple negative breast ca. S/p L mastectomy * Follows with Dr. Dowling as outpatient * Most recent Mammogram 04/12/19 -- no evidence of malignancy -- rec follow up in 1 year (14) DVT prophylaxis: * Lovenox SQ while inpatient Dispo: surgical rec HIDA -- patient likely to remain hospitalized until friday as she is stable currently and unable to perform until friday -- if worsening symptoms/unstable, will need to obtain stat and call in tech Supervising Physician Co-Signing Physician Notes PA Supervision Note: I did not personally see or examine the patient today, but I verified all amado points of JENNIFER Cook's assessment and plan with the following exceptions/additions: None Subjective Patient evaluated this afternoon. 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 She states she has peripheral neuropathy secondary to this and has been taking vitamins, follows with Dr. Hawk. Did not receive any chemo/radiation for desmoid. Has a history of multiple cysts in liver, kidneys, and elsewhere although she is unsure of exact locations. Was thought to have pancreatic Ca several years ago and was evaluate at [facility] for possible [place], where she was told to never let anyone operate on her and that she does not have any pancreatic or liver ca. Currently denying any abdominal pain at the moment, but states she gets alternating left/right flank pain that is described as "stabbing" in nature and sometimes radiates to groin/legs. She states it has been 5-6 months since her last bout. She has a history of cholelithiasis but states she watches what she eats and avoids fried/fatty/spicy foods. She denies having anything that would have exacerbated gallbladder symptoms. When asked about hematuria and history of kidney stones, the patient states "yes and no". She states she has been told multiple times that she has had them but she states "every time they send me to have them checked they can't find any" and states she was told she must be passing multiple smaller stones. She does have occasional urinary incontinence and wears briefs. Denies any dysuria. She states she does get left sided abdominal pain when she has formed stool and takes oxycodone for the pain during that time typically, but can get more constipated secondary to that and uses two drops of lemon essential oils in water as the "best stool regulator". She follows with Dr. Garcia as her PCP. Of note, patient states she has been getting intermittent chest discomfort in the region of left mastectomy, which she attributes to possible nerve damage following surgery. Lasts anywhere from a couple seconds to minutes. No radiation. Not situational as it occurs at rest or with activity. She denies any cardiac history or known valvular disease. Denies any chest pain at this current moment. Following with Dr. Dowling for hx triple positive breast cancer with left mastectomy five years ago and states she took oral chemo for a year but is unsure the name. Follows with Dr. Dowling locally for the past three years, previously followed with Dr. Biswas, and states she has been told multiple times that she was not treated adequately treated due to no chemo/radiation for her desmoid. She states she was set up to see a general surgeon in [place] on June 09 to have 'minimally invasive removal of gallstones' and states that she cancelled it because she does not believe that is necessary as she has had stones for quite some time. She states she has been told that she will likely develop metastasis whether it be to the liver brain kidneys or lungs, and of note, states "I hope it's to the brain, that's quicker". She denies any visual or auditory hallucinations. Denies tinnitus although is hard of hearing and wears hearing aids. Denies fevers or chills, n/v, shortness of breath. Review of Systems Review of Systems: All systems reviewed & are unremarkable except as noted in HPI & below Physical Exam Constitutional: WD/WN, vitals as above no acute distress Eyes: + anicteric sclerae and PERRL ENMT: Ears: + hearing impairment Respiratory: normal respiratory effort, lungs clear to auscultation Cardiovascular: Rate/Rhythm: regular rate and regular rhythm Heart Sounds: normal S1, normal S2 and + murmur (best appreciated at left lower sternal boarder) Gastrointestinal (Abdomen): Inspection/Auscultation: normal bowel sounds Percussion/Palpation: abdomen soft; abdomen nontender, no guarding and abdomen not rigid ostomy without evidence of drainage or erythema nodularity of liver on palpation Musculoskeletal: Head/Neck/Chest: normocephalic and head atraumatic Extremities: extremities normal to inspection and strength 5/5 throughout; no clubbing Skin: warm, dry ostomy as above Neurologic: moves all extremities and awake; no focal motor deficits Cranial Nerves: PERRL Psychiatric: A+Ox3, euthymic affect Lymphatic: no cervical or axillary lymphadenopathy Results & Data Vital Signs (Past 12 Hours) Vital Signs Temp Pulse Resp BP Pulse Ox 05/22/19 13:23 67 178/83 H 05/22/19 08:00 37.9 C H 66 16 173/87 H 98 Laboratory Results 05/22/19 05/22/19 Range/Units 10:45 06:03 Sodium 137 (136-145) mmol/L Potassium 4.2 (3.5-5.1) mmol/L Chloride 109 H (98-107) mmol/L Carbon Dioxide 24 (21-32) mmol/L Anion Gap 4.0 (3-11) BUN 20 H (7-18) mg/dl Creatinine 0.83 (0.6-1.2) mg/dl Est Cr Clr Drug Dosing 43.0 ml/min Est GFR ( Amer) 73.5 Est GFR (Non-Af Amer) 63.4 BUN/Creatinine Ratio 23.8 H (10-20) Glucose 84 (70-99) mg/dl Calcium 8.0 L (8.5-10.1) mg/dl Urine Color Yellow Urine Appearance Cloudy A (Clear) Urine pH 5.0 (4.5-7.5) Ur Specific [place] 1.010 (1.000-1.030) Urine Protein Negative (Negative) Urine Glucose (UA) Negative (Negative) Urine Ketones Negative (Negative) Urine Blood Negative (Negative) Urine Nitrite Negative (Negative) Urine Bilirubin Negative (Negative) Urine Urobilinogen Negative (Negative) Ur Leukocyte Esterase Negative (Negative) Urine WBC (Auto) 5-10 H (0-5) /hpf Urine RBC (Auto) >30 H (0-4) /hpf U Hyaline Cast (Auto) 0 (0-5) /lpf U Epithel Cells (Auto) 10-20 H (0-5) /lpf Urine Bacteria (Auto) 2+ H (Negative) Urine Yeast Not Reportable PG Care Time/CCT Total # of Minutes Spent Total Time Spent with Patient: Total time spent is greater than 50% in coordination of care (as documented) at patient's floor/unit and/or counseling patient:
--- NOTE | 2019-05-22 15:56 | XRay Report ---
XR KUB/Abdomen 1 view CLINICAL HISTORY: 89 years-old Female presenting with L flank pain, renal colic. TECHNIQUE: Single supine view of the abdomen was obtained. COMPARISON: CT from 04/27/2019, plain radiograph from 11/05/2014, and ultrasound of the right upper murray drant from 05/21/2019. FINDINGS: Moderate stool burden scattered throughout the colon. Nonobstructive bowel gas pattern. Mildly disten ded large bowel. Numerous anastomotic suture lines project over the pelvis. Surgical clips also proje ct over the pelvis. Cholelithiasis is evident. Limited evaluation for nephrolithiasis given bowel gas and stool. Several pelvic phleboliths noted. Degenerative changes of the spine. Degenerative changes of the hips, right greater than left. IMPRESSION: 1. Stool burden suggests constipation. 2. Limited evaluation for nephrolithiasis given the stool burden. Notably, no nephrolithiasis was ev ident on the recent CT, which is a much better evaluation for this diagnosis. 3. Cholelithiasis. ACT 112: Negative or not required by law. Electronically signed by: Freddie Michele M.D. 05/22/2019 3:55 PM
[2019-05-22] MEDS ORDERED: bisacodyL 5 MG TABEC PO ONE (16:06)
[2019-05-22 16:50] LABS: Alanine Aminotransferase 18 U/L (12-78); Albumin Level 3.1 gm/dl (3.4-5.0); Alkaline Phosphatase 62 U/L (45-117); Aspartate Aminotransferase 18 U/L (15-37); Bilirubin Direct < 0.1 mg/dl (0-0.2); Bilirubin,Total 0.4 mg/dl (0.2-1); Lipase 124 U/L (73-393); Total Protein 6.4 gm/dl (6.4-8.2)
[2019-05-22] MEDS: POLYETHYLENE (MIRALAX) 17 GM PACK PO SCH (17:47)
[2019-05-22] MEDS ORDERED: cefTRIAXone SODIUM 1,000 MG in DEXTROSE 5% 50 ML IV SCH (18:00)
[2019-05-22] MEDS ORDERED: ENOXAPARIN INJ 40 MG/0.4 ML SYR SQ SCH (18:00)
[2019-05-22] MEDS: bisacodyL 10 MG SUPP PR STA ×2 (18:13→18:24)
[2019-05-22] MEDS: MINOCYCLINE 50 MG PO SCH (20:39)
[2019-05-23] MEDS: ZAFIRLUKAST 20 MG SCH ×3 (00:04→17:19)
[2019-05-23] MEDS: ACETAMINOPHEN 325 MG TAB PO SCH ×5 (00:04→23:27)
[2019-05-23 06:39] LABS: Hematocrit (blood only) 36.5 % (37-47); Mean Corpuscular Hemoglobin 29.6 pg (25-34); Mean Corpuscular Hgb Conc 32.9 g/dL (32-36); Mean Corpuscular Volume 90.1 fL (80-100); Mean Platelet Volume 10.4 fL (7.4-10.4); Platelet Count 201 K/uL (130-400); RDW Coefficient of Variation 13.3 % (11.5-14.5); RDW Standard Deviation 43.8 fL (36.4-46.3); Red Blood Count 4.05 M/uL (4.2-5.4); White Blood Count 4.77 K/uL (4.8-10.8)
[2019-05-23 06:58] LABS: INR 1.4 (0.9-1.1); Prothrombin Time 13.7 Seconds (9.0-12.0)
[2019-05-23 07:12] LABS: Albumin Level 3.3 gm/dl (3.4-5.0); BUN Creatinine Ratio 24.2 (10-20); Calcium 8.5 mg/dl (8.5-10.1); Creatinine Clr Calc Pharmacy 46.3 ml/min; Est GFR (African American) 80.5; Est GFR (Non-African American) 69.4
[2019-05-23 07:14] LABS: Albumin Globulin Ratio 0.9 (0.9-2); Bilirubin,Total 0.4 mg/dl (0.2-1); Globulin 3.6 gm/dl (2.5-4.0); Total Protein 6.9 gm/dl (6.4-8.2)
[2019-05-23] MEDS: OXYCODONE HCL IR 5 MG TAB (IMMEDIATE RELEASE) PO PRN ×3 (07:58→20:00)
[2019-05-23] MEDS: CALCIUM CARBONATE 1250MG TAB PO SCH ×2 (08:42→17:26)
[2019-05-23] MEDS: VITAMIN B COMPLEX TAB PO SCH (08:43)
[2019-05-23] MEDS: MULTIVITAMIN TAB PO SCH (08:43)
[2019-05-23] MEDS: MINOCYCLINE 50 MG PO SCH (08:44)
[2019-05-23] MEDS: DICLOFENAC SOD 1% GEL 100 GM TUBE EXT SCH (08:46)
[2019-05-23] MEDS: POLYETHYLENE (MIRALAX) 17 GM PACK PO SCH (08:47)
[2019-05-23] MEDS ORDERED: METOPROLOL TARTRATE 25 MG TAB PO ONE (09:15)
--- NOTE | 2019-05-23 12:52 | Surgery Progress Note ---
Date of Service May 23, 2019 Assessment & Plan (1) Cholelithiasis: episode of pain , CT scan ordered pain resolved HIDA in AM would not recommend cholecstectomy unless gallbladder obstructed Subjective No issues currently had some pain last night likely chronic issues HIDA tomorrow Review of Systems Constitutional: no fever and no chills Respiratory: no dyspnea Cardiovascular: no chest pain Gastrointestinal: no abdominal pain, no nausea and no vomiting Genitourinary: no dysuria Physical Exam Constitutional: well developed and well nourished Neck: trachea midline Respiratory: normal respiratory effort, lungs clear to auscultation normal respiratory effort Cardiovascular: RRR, no murmur, no edema Gastrointestinal (Abdomen): Inspection/Auscultation: abdomen normal to inspection and normal bowel sounds; abdomen not distended Percussion/Palpation: abdomen nontender Musculoskeletal: Head/Neck/Chest: normocephalic and head atraumatic Skin: no rashes, warm and dry Results & Data Vital Signs (Past 12 Hours) Vital Signs Temp Pulse Resp BP Pulse Ox 05/23/19 07:47 36.7 C 64 18 185/90 H 97
--- NOTE | 2019-05-23 13:57 | Hospitalist Progress Note ---
Date of Service May 23, 2019 Assessment & Plan (1) Left flank pain: * Acute episode again last night/this morning this time radiating to the epigastric region * Controlled with pain medications currently -- ddx cholecystitis, constipation, nephrolithiasis, pancreatitis, renal colic, biliary colic. hx nephrolithiasis in past, has seen Dr. Ross from Urology * Low grade temp 100.2F on 05/23 -- patient initially with blood, RBC on UA -- repeat with >30 RBCs, 5-10 WBC, 2+ bacteria, but 10-20 epi --> initially cultures with evidence of >100,000 colony count--> started empirically on ceftriaxone -- lab error then reported, will urine culture is actually just mixed skin jonathan, no sensitivities to follow * KUB to look for evidence of stones on 05/22 -- study inconclusive secondary to stool burden -- given bowel regimen with resulting BM -- continue to monitor * Lipase at 124 wnl initially, but given epigastric pain-rechecked lipase today give epigastric "stabbing" pain -- 822 --> question for sphincter of oddi dysfunction -- consult GI * Obtained a CT A/P today due to recurrent worsening/"different" abdominal pain -- no acute process within the abdomen. Incidentally, 2.6 cm mass-like density within the mid to lower left lung. A chest CT is recommended to exclude a neoplastic process. 1.9 cm left cardiophrenic angle/pleural-based nodule. 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 Patient with HX TRIPLE NEG BREAST CA, s/p L mastectomy and did not have chemotherapy or radiation afterwards * Will obtain CT Chest this evening -- possible need to consult pulmonology pending results * HIDA scan in AM for to rule out acute/chronic cholecystitis * Continue to monitor (2) Hematuria: * As above, microscopic, persistent * hx of stone per patient, although never analyzed -- denies gross hematuria. Does have hx of internal hemorrhoids. * Repeat UA as above * Has seen Urology in the past, Dr. Ross-outpatient follow-up indicated (3) Dehydration: * Initially admitted for dehydration -- IVF discontinued as patient with infiltrated IVs and requesting to push PO fluids * Encouraged PO intake (4) Fibromyalgia: * Possible fibromyalgia flare (5) Elevated blood pressure reading: * No home medications -- likely secondary to pain * 185/90 this morning, but currently 154/84 -- hydralazine discontinued, given additional lopressor 25mg this morning * Continue to monitor -- will need close outpatient follow up if BP remains elevated with resolution of pain (6) Cholelithiasis: * GB U/s equivocal for acute cholecystitis -- patient with low-grade temperatures which may be from UTI versus ? 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 Hawk as outpatient -- patient managed with vitamins as outpatient * Voltaren, tylenol as needed * Continue (9) Osteopenia: * Follows with PCP -- most recent Reclast last year * Most recent Thoracic Spine Xray 11/18 with moderate degenerative changes but no acute process * CT abd/pelvis on 04/27 with small hepatic cysts/hypodensities unchanged from previous exams, gallstones present with thickening of wall (10) Osteoarthritis: * As above (11) Rosacea: * Patient on minocycline, continue (12) Murmur: * No heart history -- murmur on exam, LLSB * EKG -- 66bpm, SR with 1st degree AV block * ECHO -- LVEF 65-70%, normal LV size, systolic function. no wma, LVG. Mild left atrial dilation (13) Breast cancer of upper-inner quadrant of left female breast: * Hx triple negative breast ca. S/p L mastectomy * Follows with Dr. Dowling as outpatient * Most recent Mammogram 04/12/19 of the right breast-- no evidence of malignancy -- rec follow up in 1 year * New possible nodules on CT A/P as above -- concern for malignancy -- dedicated CT chest this evening as above (14) Elevated INR: * INR 1.4 today -- not on any anticoagulants -- no hx liver dz -- * Appears patient with history of elevated INR -- most recent in our system 1.3 -- with h/o short bowel, patient may have vitamin k deficiency * No evidence of active bleeding at this time * Hepatitis Panel pending * Continue to monitor (15) DVT prophylaxis: * Lovenox SQ while inpatient -- discontinued in case of need for biopsy * Will order SCDs, ambulation encouraged Dispo: CT chest this evening -- possible HIDA on Friday if ct without evidence of acute process -- if negative, d/c home Supervising Physician Co-Signing Physician Notes PA Supervision Note: I did not personally see or examine the patient today, but I verified all amado points of JENNIFER Cook's assessment and plan with the following exceptions/additions: I personally reviewed the CT of the chest images and radiology report that came back later this evening. She does have a 2.6 cm mass in the left lingula and a 1.9 cm pleural-based nodule on the left which is concerning for neoplasm. She also has skeletal lytic lesions in the T8 vertebrae with expansion of the cortex and right ribs. This certainly could be metastatic breast cancer from her previous breast cancer in 2015. -Consult her oncologist Dr. Dowling for further opinion -We will likely need some sort of biopsy to confirm the diagnosis-unsure if could be done with CT-guided biopsy by radiology versus pulmonology or thoracic surgery --Will defer to Friday to decide about best approach for biopsy -This could potentially explain her left sided pain under the ribs as well as the pain in the back could be from the vertebral lytic lesion -Also consider radiation therapy to the T8 vertebrae considering expansion of the cortex and possible encroachment in the epidural space Of note, the patient has not yet been informed of her CT chest results as they came back late in the evening Subjective Patient evaluated this morning. States that she was feeling great last night and had planned on asking to be discharged last night and then she began having acute worsening of left sided abdominal pain with radiation to the midline, described as "stabbing" in nature. She states this is unlike her usual pain due to radiation to epigastric/mid abdominal region. Still has the pain currenlty, but improved with tylenol this morning. States she feels "wiped out" this morning. Had moved bowels yesterday, but nothing yet. Concerns that she will have to change her ostomy soon. Review of Systems Constitutional: no fever and no chills Eyes: no diplopia and no problem reported Ear, Nose, Mouth, Throat: no sore throat and no dysphagia Respiratory: no cough and no dyspnea Cardiovascular: + chest pain (left sided, intermittent); no edema Gastrointestinal: + abdominal pain; no nausea and no vomiting Genitourinary: + hematuria (in the past); no dysuria Integumentary: no rash and no lesions Physical Exam Constitutional: WD/WN, vitals as above no acute distress Eyes: + anicteric sclerae and PERRL ENMT: Ears: + hearing impairment Respiratory: normal respiratory effort, lungs clear to auscultation Cardiovascular: Rate/Rhythm: regular rate and regular rhythm Heart Sounds: normal S1, normal S2 and + murmur (best appreciated at left lower sternal boarder) Gastrointestinal (Abdomen): Inspection/Auscultation: normal bowel sounds Percussion/Palpation: abdomen soft; abdomen nontender, no guarding and abdomen not rigid Musculoskeletal: Head/Neck/Chest: normocephalic and head atraumatic Extremities: extremities normal to inspection and strength 5/5 throughout; no clubbing Neurologic: moves all extremities and awake; no focal motor deficits Cranial Nerves: PERRL Psychiatric: A+Ox3, euthymic affect Lymphatic: no cervical or axillary lymphadenopathy Results & Data Vital Signs (Past 12 Hours) Vital Signs Temp Pulse Resp BP Pulse Ox 05/23/19 07:47 36.7 C 64 18 185/90 H 97 Laboratory Results 05/23/19 05/23/19 05/23/19 Range/Units 06:08 06:08 06:08 WBC 4.77 L (4.8-10.8) K/uL RBC 4.05 L (4.2-5.4) M/uL Hgb 12.0 (12.0-16.0) g/dL Hct 36.5 L (37-47) % MCV 90.1 (80-100) fL MCH 29.6 (25-34) pg MCHC 32.9 (32-36) g/dL RDW Std Deviation 43.8 (36.4-46.3) fL RDW Coeff of Spencer 13.3 (11.5-14.5) % Plt Count 201 (130-400) K/uL MPV 10.4 (7.4-10.4) fL PT 13.7 H (9.0-12.0) Seconds INR 1.4 H (0.9-1.1) Sodium 141 (136-145) mmol/L Potassium 4.0 (3.5-5.1) mmol/L Chloride 111 H (98-107) mmol/L Carbon Dioxide 26 (21-32) mmol/L Anion Gap 4.0 (3-11) BUN 19 H (7-18) mg/dl Creatinine 0.77 (0.6-1.2) mg/dl Est Cr Clr Drug Dosing 46.3 ml/min Est GFR ( Amer) 80.5 Est GFR (Non-Af Amer) 69.4 BUN/Creatinine Ratio 24.2 H (10-20) Glucose 90 (70-99) mg/dl Calcium 8.5 (8.5-10.1) mg/dl Total Bilirubin 0.4 (0.2-1) mg/dl Direct Bilirubin (0-0.2) mg/dl AST 19 (15-37) U/L ALT 33 (12-78) U/L Alkaline Phosphatase 72 (45-117) U/L Total Protein 6.9 (6.4-8.2) gm/dl Albumin 3.3 L (3.4-5.0) gm/dl Globulin 3.6 (2.5-4.0) gm/dl Albumin/Globulin Ratio 0.9 (0.9-2) Lipase (73-393) U/L 05/22/19 Range/Units 06:03 WBC (4.8-10.8) K/uL RBC (4.2-5.4) M/uL Hgb (12.0-16.0) g/dL Hct (37-47) % MCV (80-100) fL MCH (25-34) pg MCHC (32-36) g/dL RDW Std Deviation (36.4-46.3) fL RDW Coeff of Spencer (11.5-14.5) % Plt Count (130-400) K/uL MPV (7.4-10.4) fL PT (9.0-12.0) Seconds INR (0.9-1.1) Sodium (136-145) mmol/L Potassium (3.5-5.1) mmol/L Chloride (98-107) mmol/L Carbon Dioxide (21-32) mmol/L Anion Gap (3-11) BUN (7-18) mg/dl Creatinine (0.6-1.2) mg/dl Est Cr Clr Drug Dosing ml/min Est GFR ( Amer) Est GFR (Non-Af Amer) BUN/Creatinine Ratio (10-20) Glucose (70-99) mg/dl Calcium (8.5-10.1) mg/dl Total Bilirubin 0.4 (0.2-1) mg/dl Direct Bilirubin < 0.1 (0-0.2) mg/dl AST 18 (15-37) U/L ALT 18 (12-78) U/L Alkaline Phosphatase 62 (45-117) U/L Total Protein 6.4 (6.4-8.2) gm/dl Albumin 3.1 L (3.4-5.0) gm/dl Globulin (2.5-4.0) gm/dl Albumin/Globulin Ratio (0.9-2) Lipase 124 (73-393) U/L Diagnostic Findings ECHO PG Care Time/CCT Total # of Minutes Spent Total Time Spent with Patient: Total time spent is greater than 50% in coordination of care (as documented) at patient's floor/unit and/or counseling patient:
[2019-05-23] MEDS ORDERED: IOVERSOL 100ml IV PRN (14:46)
--- NOTE | 2019-05-23 15:14 | CT Scan Report ---
CT OF THE ABDOMEN AND PELVIS WITH CONTRAST CLINICAL HISTORY: Worsening left-sided abdominal pain. Breast cancer. COMPARISON STUDY: CT of the abdomen and pelvis April 27, 2019. KUB May 22, 2019. TECHNIQUE: Following IV administration of 93 mL of Optiray-320, axial images of the abdomen and pelvi s were obtained from the lung bases to the proximal femurs. Images were reviewed in the axial, sagitt al, and coronal planes. IV contrast was administered without complication. Automated exposure contro l was utilized for the study. A dose lowering technique was utilized adhering to the principles of A DOUGLAS. Oral contrast was administered. CT DOSE: 260.44 mGy.cm FINDINGS: Welding Machine Setter image demonstrates a 2.6 cm mass-like density within the left mid to lower lung. Imag ed portions of the lower chest demonstrate moderate cardiomegaly. A left cardiophrenic angle/pleural- based nodule measures 1.9 cm. This was not evident on CT of April 27, 2019. No pneumatosis, free a ir or portal venous gas is present. There are gallstones within the gallbladder without evidence for acute cholecystitis. Multiple subcentimeter hypodense hepatic lesions are unchanged and CT of November 03, 2014. These are benign. The spleen, adrenal glands, kidneys and pancreas are unremarkable. No biliar y or pancreatic ductal dilatation is present. There is no hydronephrosis. Mild left renal atrophy is noted. Postoperative findings within the bowel are noted. Oral contrast reaches the rectum. Multiple decompressed small bowel loops are noted within the lower abdomen and pelvis. However, these were amada wn on prior exams and appear unchanged. There is no convincing evidence for a bowel obstruction on th is examination. No abdominal or pelvic lymphadenopathy is present. No suspicious osseous lesions are noted. Uterus is surgically absent. Major vasculature is patent. There is no ascites. IMPRESSION: 1. 2.6 cm mass-like density within the mid to lower left lung. A chest CT is recommended to exclude a neoplastic process. 1.9 cm left cardiophrenic angle/pleural-based nodule which can also be assessed on chest CT. 2. No acute process within the abdomen or pelvis. Multiple decompressed small bowel loops within the lower abdomen and pelvis however the appearance is similar to prior exams and oral contrast reaches t he rectum. Therefore, there is no evidence for a bowel obstruction. 3. Cholelithiasis. No evidence for acute cholecystitis. ACT 112: Negative or not required by law. Electronically signed by: Andrew Quiros M.D. 05/23/2019 3:12 PM
[2019-05-23 15:41] LABS: Lyme Ab IgG w/WB Rflx Negative (Negative)
[2019-05-23 15:42] LABS: Lyme Ab IgM w/WB Rflx Negative (Negative)
[2019-05-23 15:44] LABS: Hepatitis B Surface Antigen Neg (Neg)
[2019-05-23 16:13] LABS: Hepatitis C IgG 13Yrs+Old_Rflx Neg (Neg)
--- NOTE | 2019-05-23 18:46 | CT Scan Report ---
CT OF THE CHEST WITHOUT IV CONTRAST CLINICAL HISTORY: new pulmonary nodule. 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 COMPARISON STUDY: Chest radiograph May 28, 2016. PET/CT February 07, 2016. CT DOSE: 215.12 mGy.cm TECHNIQUE: Axial images of the chest were obtained without IV contrast. Images were reviewed in the axial, sagittal, and coronal planes. IV contrast was not administered for this examination. Automat ed exposure control was utilized for the study. A dose lowering technique was utilized adhering to t he principles of ALARA. FINDINGS: No enlarged axillary, mediastinal or hilar lymph nodes are present. Mild dilatation of the ascending aorta, measuring 3.9 cm, is similar to PET/CT of February 07, 2016. The size of the heart is normal. There is no pericardial effusion. There is moderate coronary artery calcification. A 2.9 x 2.5 cm irregular lingular nodule on axial image 185 of 301 is new since PET/CT of February 07, 2016. A 1.8 cm pleural-based nodule overlying the lingula on axial image 206 is also new since prior PET/C T. The central airways are patent. Note is made of a lytic lesion within the right posterior aspect o f the T8 vertebral body which measures 1.5 cm. There is minimal epidural extension of tumor with disr uption of the posterior cortex. There is also a lytic lesion within the lateral right second rib. Upp er abdomen is unremarkable. There is no consolidation to suggest pneumonia. There is no pneumothorax or pleural effusion. IMPRESSION: 1. 2.9 x 2.5 cm irregular solid lingular nodule new since PET/CT of February 07, 2016. This is neopla stic and may reflect metastatic breast cancer or a primary lung carcinoma. 2. 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 Additional r ight second rib skeletal metastasis. 3. 1.8 cm pleural-based nodule overlying the lingula likely reflects a pleural implant. ACT 112: Negative or not required by law. Electronically signed by: Andrew Quiros M.D. 05/23/2019 6:45 PM
[2019-05-23] MEDS: MoRPHine SULFATE 2 MG/ML CARP IV PRN (21:49)
[2019-05-23] MEDS: ONDANSETRON INJ 2 MG/ML 2 ML VIAL IV PRN (21:50)
[2019-05-24] MEDS: ZAFIRLUKAST 20 MG SCH ×3 (00:07→16:05)
[2019-05-24] MEDS: MoRPHine SULFATE 2 MG/ML CARP IV PRN ×2 (01:17→04:29)
[2019-05-24 05:47] LABS: Hematocrit (blood only) 36.2 % (37-47); Hemoglobin 11.7 g/dL (12.0-16.0); Mean Corpuscular Hemoglobin 29.3 pg (25-34); Mean Corpuscular Hgb Conc 32.3 g/dL (32-36); Mean Corpuscular Volume 90.5 fL (80-100); Platelet Count 190 K/uL (130-400); RDW Standard Deviation 43.3 fL (36.4-46.3); White Blood Count 4.44 K/uL (4.8-10.8)
[2019-05-24 05:56] LABS: INR 1.7 (0.9-1.1); Partial Thromboplastin Ratio 1.2; Partial Thromboplastin Time 31.4 Seconds (21.0-31.0); Prothrombin Time 16.6 Seconds (9.0-12.0)
[2019-05-24] MEDS: ACETAMINOPHEN 325 MG TAB PO SCH ×3 (06:08→18:02)
[2019-05-24 06:17] LABS: Est GFR (African American) 70.4; Est GFR (Non-African American) 60.7; Potassium 4.1 mmol/L (3.5-5.1)
[2019-05-24 06:18] LABS: Albumin Level 3.2 gm/dl (3.4-5.0); Calcium 8.4 mg/dl (8.5-10.1); Creatinine Clr Calc Pharmacy 41.5 ml/min
[2019-05-24 06:20] LABS: Albumin Globulin Ratio 0.9 (0.9-2); Bilirubin,Total 0.4 mg/dl (0.2-1); Globulin 3.4 gm/dl (2.5-4.0); Total Protein 6.6 gm/dl (6.4-8.2)
[2019-05-24] MEDS: CALCIUM CARBONATE 1250MG TAB PO SCH ×2 (07:45→18:02)
[2019-05-24] MEDS: POLYETHYLENE (MIRALAX) 17 GM PACK PO SCH ×2 (07:45→18:01)
[2019-05-24] MEDS: MULTIVITAMIN TAB PO SCH (07:45)
[2019-05-24] MEDS: VITAMIN B COMPLEX TAB PO SCH (07:45)
[2019-05-24] MEDS: MINOCYCLINE 50 MG PO SCH (07:45)
[2019-05-24] MEDS: DICLOFENAC SOD 1% GEL 100 GM TUBE EXT SCH (09:16)
--- NOTE | 2019-05-24 10:41 | Nuclear Medicine Report ---
NUCLEAR HEPATOBILIARY SCAN CLINICAL HISTORY: Right upper quadrant abdominal pain. COMPARISON STUDY: Abdominal CT dated 05/23/2019. TECHNIQUE: Dynamic images of the liver and anterior abdomen were obtained every 5 minutes for a total of 45 minutes following the IV administration of 5.6mCi of technetium 99m Choletec. FINDINGS: The hepatobiliary scan shows prompt and homogeneous hepatic uptake. There is visualized act ivity within the intra and extrahepatic biliary tree at 15 minutes, and within the gallbladder at 30 minutes. There is normal biliary to bowel transit, with small bowel visualized by 40 minutes. IMPRESSION: Unremarkable nuclear hepatobiliary scan. There is no scintigraphic evidence of cholecys titis. ACT 112: Negative or not required by law. Electronically signed by: David Bazan M.D. 05/24/2019 10:40 AM
[2019-05-24] MEDS ORDERED: PHYTONADIONE 5 MG TAB PO ONE (12:34)
--- NOTE | 2019-05-24 13:23 | Consultation Report ---
DATE OF CONSULTATION: 05/24/2019 REASON FOR CONSULTATION: Left upper lobe mass. 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 She was exposed to some smoke while teaching but very little. Her parents did not smoke and her did not smoke. The patient was admitted with unremitting back pain. She has had chronic back pain, treated for many years. She is followed by Dr. Foster Garcia. The patient has had no weight loss. She has had no pulmonary symptoms. Remarkably active for an 89-year-old. She has a history of an ileostomy and surgery done at [facility] for a desmoid tumor in the past. She also has a history of left breast cancer, had surgery 4-1/2 years ago. Apparently, this was a triple-negative carcinoma of the breast. The patient is followed from a pulmonary standpoint by Dr. Curt Dowling. PAST MEDICAL HISTORY: 1. Left upper lobe/lingular mass. 2. History of left breast cancer. 3. History of desmoid tumor of the abdomen. 4. Peripheral neuropathy. 5. Apparent cholelithiasis. 6. Diffuse osteoarthritis. 7. Asthma. 8. Fibromyalgia. 9. Chronic obstructive pulmonary disease. 10. History of nephrolithiasis. 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 PAST SURGICAL HISTORY: 1. 2, para 2. 2. Status post hysterectomy. 3. History of an ileostomy. 4. History of left mastectomy. 5. Small bowel resection and apparent gastric surgery. MEDICATIONS: Please see chart. ALLERGIES: MULTIPLE, please see chart. SOCIAL HISTORY: The patient lives by herself in an apartment, but she lives next to her daughter who is schizophrenic. She apparently is quite helpful with her daughter. The patient has never smoked cigarettes. 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 She does not use alcohol. FAMILY MEDICAL HISTORY: Mother had cerebrovascular disease with cardiac issues. Father had an acute myocardial infarction, had a valvular disease requiring replacement, of congestive heart failure. She has a daughter with schizophrenia. She also has healthy grandchildren. Her son lives in [place] with his and children. She has a daughter who lives here in [place] who has been adopted. She has 5 children and multiple grandchildren. REVIEW OF SYSTEMS: The patient's weight has been stable. She denies productive cough. She has had no hemoptysis or night sweats or fevers. She does wear glasses but denies any recent visual or auditory symptoms. She does have difficulty hearing. She denies dyspnea. She makes herself walk and can walk up to 2 flights of stairs without getting short of breath. She has abdominal pain, which is referred to her left flank. Her ostomy has been working well. She denies palpitations or chest pain. She had no neurologic events. She has had no wound breakdown. She has had no peripheral edema. PHYSICAL EXAMINATION: GENERAL: This is a 5 feet 5 inches, 132 pound female who is awake, alert and oriented. She wears glasses. HEENT: Her extraocular movements are intact. Sclerae are pale but anicteric. She is edentulous with upper and lower denture plates. Tongue is midline. NECK: Supple. She has mild neck vein distention at 30 degrees. She has no carotid bruits. I detect no lymphadenopathy. She has no thyroid nodules. LUNGS: Actually clear. I detect no wheezing or rales. HEART: She has a regular rate and rhythm of her heart. She has no significant rub. ABDOMEN: Soft. She has a well-healing left ileostomy stoma. She has a midline incision and a left paramedian incision. She has no evidence of hernias. Her abdomen really is not very tender. She has good femoral pulses and good peripheral pulses. She has no joint effusions. She has no peripheral edema. She has a well-healed left mastectomy incision that extends all the way over to the near xiphoid process. NEUROLOGIC: She is completely intact except she does have some mild decreased hearing acuity. DATA: I reviewed her CT scan, she does indeed have a fairly large spiculated lesion in her lingula which certainly appears to be neoplastic. I really do not see much in the way of lymphadenopathy. She has a very small nodule on the right which has some ground-glass characteristics, but it is smaller than a centimeter. She does have cholelithiasis. Echocardiogram looked quite good actually. The patient was scheduled for a HIDA scan, which was unremarkable today and probably not responsible for any of her symptoms. In comparing her scans from past years, not only this lesion is worrisome but there is also a pleural based nodule which is close to this. In addition, the patient appeared to have a T8 vertebral bony metastasis. This is probably responsible for her back pain. ASSESSMENT AND PLAN: Left lingular and pleural mass with probable T8 metastasis. This may well be a lung primary. Obtaining a tissue diagnosis is going to be extremely important. I believe she would be a candidate for needle biopsy and I will discuss this with the radiologist. PET scan of course will be required. Dr. Dowling will need to weigh in on this also. I agree with Dr. Quiros from radiology that this is likely a lung primary, even though she is a nonsmoker or perhaps a breast metastasis.
--- NOTE | 2019-05-24 13:50 | Surgery Progress Note ---
Date of Service May 24, 2019 Assessment & Plan (1) Cholelithiasis: No abdominal pain, nausea or vomiting HIDA scan within normal limits, no acute cholecystitis, no biliary obstruction no leukocytosis, t. bili, lfts wnl Plan: No surgical indication for cholecystectomy Would continue low fat diet back pain likely from her skeletal metastasis, may need adjustment of her pain regimen our services signing off, call with questions or concerns Discussed with Dr. Hunt who agrees with above and evaluate patient later this afternoon. Subjective complaining of sharp stabbing back pain no abdominal pain tolerating regular diet, no nausea or vomiting Physical Exam Constitutional: WD/WN, vitals as above no acute distress Respiratory: normal respiratory effort; no respiratory distress Skin: no rashes, warm and dry Psychiatric: A+Ox3, euthymic affect Results & Data Vital Signs (Past 12 Hours) Vital Signs Temp Pulse Resp BP Pulse Ox 05/24/19 06:59 36.8 C 60 16 169/84 H 95 05/24/19 06:09 62 136/74 Laboratory Results 05/24/19 05/24/19 05/24/19 Range/Units 05:33 05:33 05:33 WBC 4.44 L (4.8-10.8) K/uL RBC 4.00 L (4.2-5.4) M/uL Hgb 11.7 L (12.0-16.0) g/dL Hct 36.2 L (37-47) % MCV 90.5 (80-100) fL MCH 29.3 (25-34) pg MCHC 32.3 (32-36) g/dL RDW Std Deviation 43.3 (36.4-46.3) fL RDW Coeff of Spencer 13.0 (11.5-14.5) % Plt Count 190 (130-400) K/uL MPV 10.0 (7.4-10.4) fL PT (9.0-12.0) Seconds INR (0.9-1.1) APTT (21.0-31.0) Seconds PTT Ratio Sodium 137 (136-145) mmol/L Potassium 4.1 (3.5-5.1) mmol/L Chloride 105 (98-107) mmol/L Carbon Dioxide 29 (21-32) mmol/L Anion Gap 3.0 (3-11) BUN 18 (7-18) mg/dl Creatinine 0.86 (0.6-1.2) mg/dl Est Cr Clr Drug Dosing 41.5 ml/min Est GFR ( Amer) 70.4 Est GFR (Non-Af Amer) 60.7 BUN/Creatinine Ratio 21.0 H (10-20) Glucose 102 H (70-99) mg/dl Calcium 8.4 L (8.5-10.1) mg/dl Total Bilirubin 0.4 (0.2-1) mg/dl AST 14 L (15-37) U/L ALT 26 (12-78) U/L Alkaline Phosphatase 62 (45-117) U/L Total Protein 6.6 (6.4-8.2) gm/dl Albumin 3.2 L (3.4-5.0) gm/dl Globulin 3.4 (2.5-4.0) gm/dl Albumin/Globulin Ratio 0.9 (0.9-2) Lipase 73 (73-393) U/L Lyme Disease IgG Ab (Negative) Lyme Disease IgM Ab (Negative) Hepatitis A IgM Ab Hep Bs Antigen (Neg) Hep B Core IgM Ab Hepatitis C Antibody (Neg) Influenza Type A Ag (Neg) Influenza Type B Ag (Neg) 05/24/19 05/23/19 05/23/19 Range/Units 05:33 19:15 14:34 WBC (4.8-10.8) K/uL RBC (4.2-5.4) M/uL Hgb (12.0-16.0) g/dL Hct (37-47) % MCV (80-100) fL MCH (25-34) pg MCHC (32-36) g/dL RDW Std Deviation (36.4-46.3) fL RDW Coeff of Spencer (11.5-14.5) % Plt Count (130-400) K/uL MPV (7.4-10.4) fL PT 16.6 H (9.0-12.0) Seconds INR 1.7 H (0.9-1.1) APTT 31.4 H (21.0-31.0) Seconds PTT Ratio 1.2 Sodium (136-145) mmol/L Potassium (3.5-5.1) mmol/L Chloride (98-107) mmol/L Carbon Dioxide (21-32) mmol/L Anion Gap (3-11) BUN (7-18) mg/dl Creatinine (0.6-1.2) mg/dl Est Cr Clr Drug Dosing ml/min Est GFR ( Amer) Est GFR (Non-Af Amer) BUN/Creatinine Ratio (10-20) Glucose (70-99) mg/dl Calcium (8.5-10.1) mg/dl Total Bilirubin (0.2-1) mg/dl AST (15-37) U/L ALT (12-78) U/L Alkaline Phosphatase (45-117) U/L Total Protein (6.4-8.2) gm/dl Albumin (3.4-5.0) gm/dl Globulin (2.5-4.0) gm/dl Albumin/Globulin Ratio (0.9-2) Lipase (73-393) U/L Lyme Disease IgG Ab (Negative) Lyme Disease IgM Ab (Negative) Hepatitis A IgM Ab Pending Hep Bs Antigen (Neg) Hep B Core IgM Ab Pending Hepatitis C Antibody (Neg) Influenza Type A Ag Neg for Influ A (Neg) Influenza Type B Ag Neg for Influ B (Neg) 05/23/19 05/23/19 05/23/19 Range/Units 14:34 14:34 06:08 WBC (4.8-10.8) K/uL RBC (4.2-5.4) M/uL Hgb (12.0-16.0) g/dL Hct (37-47) % MCV (80-100) fL MCH (25-34) pg MCHC (32-36) g/dL RDW Std Deviation (36.4-46.3) fL RDW Coeff of Spencer (11.5-14.5) % Plt Count (130-400) K/uL MPV (7.4-10.4) fL PT (9.0-12.0) Seconds INR (0.9-1.1) APTT (21.0-31.0) Seconds PTT Ratio Sodium (136-145) mmol/L Potassium (3.5-5.1) mmol/L Chloride (98-107) mmol/L Carbon Dioxide (21-32) mmol/L Anion Gap (3-11) BUN (7-18) mg/dl Creatinine (0.6-1.2) mg/dl Est Cr Clr Drug Dosing ml/min Est GFR ( Amer) Est GFR (Non-Af Amer) BUN/Creatinine Ratio (10-20) Glucose (70-99) mg/dl Calcium (8.5-10.1) mg/dl Total Bilirubin (0.2-1) mg/dl AST (15-37) U/L ALT (12-78) U/L Alkaline Phosphatase (45-117) U/L Total Protein (6.4-8.2) gm/dl Albumin (3.4-5.0) gm/dl Globulin (2.5-4.0) gm/dl Albumin/Globulin Ratio (0.9-2) Lipase 822 H (73-393) U/L Lyme Disease IgG Ab Negative (Negative) Lyme Disease IgM Ab Negative (Negative) Hepatitis A IgM Ab Hep Bs Antigen Neg (Neg) Hep B Core IgM Ab Hepatitis C Antibody Neg (Neg) Influenza Type A Ag (Neg) Influenza Type B Ag (Neg) Diagnostic Findings NUCLEAR HEPATOBILIARY SCAN CLINICAL HISTORY: Right upper quadrant abdominal pain. COMPARISON STUDY: Abdominal CT dated 05/23/2019. TECHNIQUE: Dynamic images of the liver and anterior abdomen were obtained every 5 minutes for a total of 45 minutes following the IV administration of 5.6mCi of technetium 99m Choletec. FINDINGS: The hepatobiliary scan shows prompt and homogeneous hepatic uptake. There is visualized activity within the intra and extrahepatic biliary tree at 15 minutes, and within the gallbladder at 30 minutes. There is normal biliary to bowel transit, with small bowel visualized by 40 minutes. IMPRESSION: Unremarkable nuclear hepatobiliary scan. There is no scintigraphic evidence of cholecystitis.
[2019-05-24] MEDS: dexAMETHasone 4 MG TAB PO SCH (13:57)
[2019-05-24] MEDS: OXYCODONE HCL IR 5 MG TAB (IMMEDIATE RELEASE) PO PRN (13:58)
--- NOTE | 2019-05-24 13:59 | Hospitalist Progress Note ---
Date of Service May 24, 2019 Assessment & Plan (1) Thoracic back pain: (2) Left flank pain: * KUB to look for evidence of stones on 05/22 -- study inconclusive secondary to stool burden -- given bowel regimen with resulting BM * Lipase elevation resolved * CT A/P 05/23 - no acute process within the abdomen. Recommended CT chest for new pulm lesion - CT of the chest with neoplastic lung lesion as well as mets to T8 * HIDA unremarkeable * Pain control - will add decadron for back pain due to metastasis, continue oxycodone * Consulted Dr. Rangel and Dr. Dowling (3) Neoplasm of lung: CT chest as above Will need biopsy to determine lung vs breast CA consulted thoracic surgery and oncology (4) Hematuria: * As above, microscopic, persistent * UC with mixed jonathan * Has seen Urology in the past, Dr. Ross-outpatient follow-up (5) Dehydration: resolved (6) Fibromyalgia: * Possible fibromyalgia flare (7) Elevated blood pressure reading: * No home medications -- likely secondary to pain * Continue to monitor -- will need close outpatient follow up if BP remains elevated with resolution of pain (8) Cholelithiasis: * GB U/s equivocal for acute cholecystitis * CT A/P as above today * General surgery consult -- HIDA unremarkeable, surgery signed off (9) Asthma: * Per patient * As zariflukast non-formulary, patient had not been receiving -- could consider alternative but would avoid unless patient with s/sx exacerbation (10) 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 Hawk as outpatient -- patient managed with vitamins as outpatient * Voltaren, tylenol as needed (11) Osteopenia: * Follows with PCP -- most recent Reclast last year * Most recent Thoracic Spine Xray 11/18 with moderate degenerative changes but no acute process * CT abd/pelvis on 04/27 with small hepatic cysts/hypodensities unchanged from previous exams, gallstones present with thickening of wall (12) Murmur: * No heart history -- murmur on exam, LLSB * EKG -- 66bpm, SR with 1st degree AV block * ECHO -- LVEF 65-70%, normal LV size, systolic function. no wma, LVG. Mild left atrial dilation (13) Breast cancer of upper-inner quadrant of left female breast: * Hx triple negative breast ca. S/p L mastectomy * Follows with Dr. Dowling as outpatient - consulted as above * Most recent Mammogram 04/12/19 of the right breast-- no evidence of malignancy * CT chest as above (14) Elevated INR: * INR 1.7 today -- not on any anticoagulants -- no hx liver dz -- * Appears patient with history of elevated INR -- most recent in our system 1.3 -- with h/o short bowel, patient may have vitamin k deficiency. Will give 5mg po vitamin K and repeat check am * did report some bleeding from mucous fistula, hgb stable * Hepatitis Panel pending (15) DVT prophylaxis: * Lovenox SQ while inpatient -- discontinued in case of need for biopsy and elevated INR * SCD Subjective Ms. Collins's main complaint is thoracic back pain which has been bothering her over the last week or more. She reports some relief with morphine but that oxycodone is not helping ROS Constitutional: no chills, aches, sweats or fever Respiratory: no sob,cough, sputum, or wheezing Cardiac: no chest pain, palpitations, edema, orthopnea or lightheadedness GI: no abdominal pain, nausea, vomiting, diarrhea or constipation : no dysuria or hesitancy Extremities: see HPI Skin: no rash All other systems reviewed and negative Physical Exam Physical Exam: General: no distress Eyes: normal inspection, PERLL Respiratory: chest non tender, clear to auscultation, normal breath sounds, no respiratory distress, no accessory muscle use Cardiac: regular rate and rhythm, no rub or gallop, systolic murmur, no edema, no jvd GI/: active bowel sounds, no abd pain or tenderness, soft, non distended Extremities: normal range of motion, normal strength, non tender Neuro/Psych: alert and oriented x 3, normal mood and affect Skin: normal color, dry Results & Data Vital Signs (Past 12 Hours) Vital Signs Temp Pulse Resp BP Pulse Ox 05/24/19 06:59 36.8 C 60 16 169/84 H 95 05/24/19 06:09 62 136/74 PG Care Time/CCT Total # of Minutes Spent Total Time Spent with Patient: Total time spent is greater than 50% in coordination of care (as documented) at patient's floor/unit and/or counseling patient:
--- NOTE | 2019-05-24 15:16 | Consultation Report ---
DATE OF CONSULTATION: 05/24/2019 REASON FOR EVALUATION: Left flank pain. HISTORY OF PRESENT ILLNESS: The patient is an 89-year-old with an extensive past medical history who presented to the hospital with weakness and dehydration on 05/21. Since being hospitalized, she has undergone some tests including a CT scan of the chest and abdomen. She has known gallstones, but no signs of acute cholecystitis. Subsequent biliary scan earlier today was normal. Unfortunately, her CAT scan of her chest showed a left lingular mass about 2.6 cm in size, highly suspicious for a carcinoma. She also has what looks like a pleural-based met on that side as well as a met in the 8th thoracic vertebrae with epidural compression. This probably accounts for her left flank pain. PAST MEDICAL HISTORY: Remarkable for fibromyalgia, gallstones, asthma, peripheral neuropathy, osteoarthritis. She has had a hysterectomy. She has had a left mastectomy for breast cancer. 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 She has 80 cm of functioning small bowel remaining. MEDICATIONS: Per list. ALLERGIES: Per list. FAMILY HISTORY: Father had a heart valve replacement and of heart attack and congestive heart failure. Mother of a stroke. SOCIAL HISTORY: The patient is a . She lives alone. 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 She has a son who lives in [facility]. Never smoked. Her did not smoke. Does not use any alcohol. REVIEW OF SYSTEMS: Positive for abdominal and flank pain. Remainder is negative. PHYSICAL EXAMINATION: GENERAL: The patient appears in no acute distress. VITAL SIGNS: Normal. She is afebrile. CHEST: Shows a left mastectomy. BACK: Spine shows some tenderness over the T8 vertebrae. ABDOMEN: Shows 2 midline scars with a mucous fistula on the right side of the abdomen, which has a little bit of mucus draining. There are no masses or tenderness. IMPRESSION AND PLAN: The patient has left flank pain, most likely from nerve compression from her T8 metastasis. I do not think any further gastrointestinal workup is needed. Her gallstones appear to be incidental as her biliary scan is normal. Dr. Rangel has been consulted and will be arranging for biopsy of the lung mass and proceed from there. No further GI input is needed at this point. We will sign off unless any new problems arise.
[2019-05-24] MEDS: ONDANSETRON INJ 2 MG/ML 2 ML VIAL IV PRN (18:01)
[2019-05-24] MEDS ORDERED: POLYETHYLENE (MIRALAX) 17 GM PACK PO STA (18:15)
[2019-05-25] MEDS: ACETAMINOPHEN 325 MG TAB PO SCH ×3 (00:27→13:43)
[2019-05-25] MEDS: ZAFIRLUKAST 20 MG SCH ×2 (00:27→07:44)
[2019-05-25 04:34] LABS: Hepatitis A Antibody IgM NON-REACTIVE (NON-REACTIVE); Hepatitis B Core Antibody IgM NON-REACTIVE (NON-REACTIVE)
[2019-05-25 05:35] LABS: Hematocrit (blood only) 35.7 % (37-47); Hemoglobin 11.8 g/dL (12.0-16.0); Lymphocytes # (auto) 0.92 K/uL (1.2-3.4); Lymphocytes % (auto) 23.2 %; Mean Corpuscular Hemoglobin 29.4 pg (25-34); Mean Corpuscular Hgb Conc 33.1 g/dL (32-36); Mean Platelet Volume 10.2 fL (7.4-10.4); Monocytes % (auto) 7.6 %; Neutrophils # (auto) 2.74 K/uL (1.4-6.5); Neutrophils % (auto) 69.2 %; Platelet Count 199 K/uL (130-400); RDW Standard Deviation 41.8 fL (36.4-46.3); Red Blood Count 4.01 M/uL (4.2-5.4); White Blood Count 3.96 K/uL (4.8-10.8)
[2019-05-25 06:13] LABS: Albumin Level 3.1 gm/dl (3.4-5.0); BUN Creatinine Ratio 21.6 (10-20); Calcium 8.4 mg/dl (8.5-10.1); Creatinine Clr Calc Pharmacy 37.9 ml/min; Est GFR (African American) 63.2; Est GFR (Non-African American) 54.5; Potassium 3.9 mmol/L (3.5-5.1)
[2019-05-25 06:16] LABS: Albumin Globulin Ratio 0.9 (0.9-2); Bilirubin,Total 0.6 mg/dl (0.2-1); Globulin 3.6 gm/dl (2.5-4.0); Total Protein 6.7 gm/dl (6.4-8.2)
[2019-05-25 08:23] LABS: INR 1.2 (0.9-1.1); Prothrombin Time 12.3 Seconds (9.0-12.0)
--- NOTE | 2019-05-25 08:33 | Hospitalist Progress Note ---
Date of Service May 25, 2019 Results & Data Vital Signs (Past 12 Hours) Vital Signs Temp Pulse Resp BP Pulse Ox 05/25/19 07:59 36.8 C 68 12 138/70 93 05/24/19 23:01 37.3 C 67 15 114/67 97 Laboratory Results 05/25/19 05/25/19 05/25/19 Range/Units 08:00 05:17 05:17 WBC 3.96 L (4.8-10.8) K/uL RBC 4.01 L (4.2-5.4) M/uL Hgb 11.8 L (12.0-16.0) g/dL Hct 35.7 L (37-47) % MCV 89.0 (80-100) fL MCH 29.4 (25-34) pg MCHC 33.1 (32-36) g/dL RDW Std Deviation 41.8 (36.4-46.3) fL RDW Coeff of Spencer 13.0 (11.5-14.5) % Plt Count 199 (130-400) K/uL MPV 10.2 (7.4-10.4) fL Immature Gran % (Auto) 0.0 % Neut % (Auto) 69.2 % Lymph % (Auto) 23.2 % Jay % (Auto) 7.6 % Eos % (Auto) 0.0 % Baso % (Auto) 0.0 % Immature Gran # (Auto) 0.00 (0.00-0.02) K/uL Neut # (Auto) 2.74 (1.4-6.5) K/uL Lymph # (Auto) 0.92 L (1.2-3.4) K/uL Jay # (Auto) 0.30 (0.11-0.59) K/uL Eos # (Auto) 0.00 (0-0.5) K/uL Baso # (Auto) 0.00 (0-0.2) K/uL PT 12.3 H (9.0-12.0) Seconds INR 1.2 H (0.9-1.1) Sodium 137 (136-145) mmol/L Potassium 3.9 (3.5-5.1) mmol/L Chloride 105 (98-107) mmol/L Carbon Dioxide 24 (21-32) mmol/L Anion Gap 8.0 (3-11) BUN 20 H (7-18) mg/dl Creatinine 0.94 (0.6-1.2) mg/dl Est Cr Clr Drug Dosing 37.9 ml/min Est GFR ( Amer) 63.2 Est GFR (Non-Af Amer) 54.5 BUN/Creatinine Ratio 21.6 H (10-20) Glucose 119 H (70-99) mg/dl Calcium 8.4 L (8.5-10.1) mg/dl Total Bilirubin 0.6 (0.2-1) mg/dl AST 19 (15-37) U/L ALT 28 (12-78) U/L Alkaline Phosphatase 65 (45-117) U/L Total Protein 6.7 (6.4-8.2) gm/dl Albumin 3.1 L (3.4-5.0) gm/dl Globulin 3.6 (2.5-4.0) gm/dl Albumin/Globulin Ratio 0.9 (0.9-2) Lipase 57 L (73-393) U/L Hepatitis A IgM Ab (NON-REACTIVE) Hep B Core IgM Ab (NON-REACTIVE) 05/23/19 Range/Units 14:34 WBC (4.8-10.8) K/uL RBC (4.2-5.4) M/uL Hgb (12.0-16.0) g/dL Hct (37-47) % MCV (80-100) fL MCH (25-34) pg MCHC (32-36) g/dL RDW Std Deviation (36.4-46.3) fL RDW Coeff of Spencer (11.5-14.5) % Plt Count (130-400) K/uL MPV (7.4-10.4) fL Immature Gran % (Auto) % Neut % (Auto) % Lymph % (Auto) % Jay % (Auto) % Eos % (Auto) % Baso % (Auto) % Immature Gran # (Auto) (0.00-0.02) K/uL Neut # (Auto) (1.4-6.5) K/uL Lymph # (Auto) (1.2-3.4) K/uL Jay # (Auto) (0.11-0.59) K/uL Eos # (Auto) (0-0.5) K/uL Baso # (Auto) (0-0.2) K/uL PT (9.0-12.0) Seconds INR (0.9-1.1) Sodium (136-145) mmol/L Potassium (3.5-5.1) mmol/L Chloride (98-107) mmol/L Carbon Dioxide (21-32) mmol/L Anion Gap (3-11) BUN (7-18) mg/dl Creatinine (0.6-1.2) mg/dl Est Cr Clr Drug Dosing ml/min Est GFR ( Amer) Est GFR (Non-Af Amer) BUN/Creatinine Ratio (10-20) Glucose (70-99) mg/dl Calcium (8.5-10.1) mg/dl Total Bilirubin (0.2-1) mg/dl AST (15-37) U/L ALT (12-78) U/L Alkaline Phosphatase (45-117) U/L Total Protein (6.4-8.2) gm/dl Albumin (3.4-5.0) gm/dl Globulin (2.5-4.0) gm/dl Albumin/Globulin Ratio (0.9-2) Lipase (73-393) U/L Hepatitis A IgM Ab NON-REACTIVE (NON-REACTIVE) Hep B Core IgM Ab NON-REACTIVE (NON-REACTIVE) PG Care Time/CCT Total # of Minutes Spent Total Time Spent with Patient: Total time spent is greater than 50% in coordination of care (as documented) at patient's floor/unit and/or counseling patient:
--- NOTE | 2019-05-25 10:20 | XRay Report ---
XR chest 1V portable CLINICAL HISTORY: s/p left pleural nodule biopsy COMPARISON STUDY: Chest CT May 23, 2019. FINDINGS: A linear density projects over the lateral left hemithorax. A skinfold is favored. There is no definite pneumothorax. Note is again made of the lingular mass as shown on CT. Cardiomediastinal silhouette is stable. There is no evidence for pulmonary edema. IMPRESSION: Equivocal small left pneumothorax. A skin fold is favored. However, a small pneumothorax cannot be excluded. Inspiration and expiration PA chest radiographs are recommended. ACT 112: Negative or not required by law. Electronically signed by: Andrew Quiros M.D. 05/25/2019 10:19 AM
--- NOTE | 2019-05-25 10:22 | Ultrasound Report ---
ULTRASOUND GUIDED FINE NEEDLE ASPIRATION OF LEFT PLEURAL NODULE CLINICAL HISTORY: Left pleural nodule. COMPARISON STUDY: Chest CT May 24, 2019. PROCEDURE: The procedure, risks and benefits were discussed with the patient including the risk of pn eumothorax, bleeding and infection. The patient agreed to the procedure and informed written consent was obtained. The procedure was performed by Dr. Quiros following a timeout. Sonography of the lef t hemithorax demonstrated the 1.8 cm pleural nodule within the left lower lateral hemithorax. This wa s targeted for fine needle aspiration. Skin was prepped and draped in sterile fashion and local anest hesia was achieved with 1% lidocaine. Under direct ultrasound guidance, a 25-gauge fine needle aspira tion was performed. Malignant cells were noted on preliminary pathology. 4 additional 25-gauge passes were then obtained for cell block. The patient tolerated the procedure well and no immediate complic ations were evident. Chest radiograph as ordered. IMPRESSION: Successful ultrasound guided fine needle aspiration of a 1.8 cm left pleural nodule. ACT 112: Negative or not required by law. Electronically signed by: Andrew Quiros M.D. 05/25/2019 10:21 AM
[2019-05-25] MEDS: VITAMIN B COMPLEX TAB PO SCH (10:37)
[2019-05-25] MEDS: DICLOFENAC SOD 1% GEL 100 GM TUBE EXT SCH (10:37)
[2019-05-25] MEDS: MINOCYCLINE 50 MG PO SCH (10:38)
[2019-05-25] MEDS: MULTIVITAMIN TAB PO SCH (10:39)
[2019-05-25] MEDS: dexAMETHasone 4 MG TAB PO SCH (10:39)
[2019-05-25] MEDS: CALCIUM CARBONATE 1250MG TAB PO SCH (10:39)
[2019-05-25] MEDS: POLYETHYLENE (MIRALAX) 17 GM PACK PO SCH ×4 (10:43→13:46)
[2019-05-25] MEDS ORDERED: bisacodyL 5 MG TABEC PO ONE (11:42)
[2019-05-25] MEDS ORDERED: ERGOCALCIFEROL 50,000 UNITS CAP PO SCH (12:00)
[2019-05-25] MEDS ORDERED: Nursing to Pharmacy Communication ONE ×2 (12:01→12:15)
--- NOTE | 2019-05-25 13:45 | Discharge Summary ---
Date of Service May 25, 2019 Admission HPI Per Admitting Provider 89-year-old female requests evaluation of acute on chronic left flank pain. - Says she has had this same sort of pain for years. At times it will resolve for a couple of weeks. Most recently started again overnight without any known trauma, falls, fevers, or recent feeling of illness. She took an oxycodone which seemed to help but did not last long. Says that it radiates to various and different areas over the years, presently radiating to around her left hip. - Patient notes she also has some urinary incontinence. She says she has been seen by Dr. Cortez of urology and was told that her bladder does not completely empty. She presently denies any dysuria or increased frequency. - On review of systems review of her past medical history, patient says she was initially advised to have a radical mastectomy for her breast cancer diagnosed around 2014. She elected not to do this and was told that she is at increased risk for spread. - She also notes she has a history of gallbladder issues for many years now as well. At one point she says she was evaluated by Dr. Denton of general surgery and told that she was a very poor surgical candidate. The exact details are unclear. - Socially, patient says that she lives at home alone and is quite independent. She says she has home caregivers that come to her place near daily. However, she normally gets around driving herself. She says her only family nearby is her daughter who lives very close but has a history of schizophrenia. For example, patient was due to drive her daughter to a doctor's appointment today. - Past medical history includes asthma, breast cancer (2014), cholelithiasis, fibromyalgia, GERD, peripheral neuropathy, kidney stones, intractable back pain, vitamin B12 deficiency, sclerosing mesenteritis, short bowel syndrome, osteoarthritis, osteopenia, rosacea, hearing loss - Past surgical history includes colostomy (for desmoid tumor), left mastectomy, hysterectomy, tonsillectomy and adenoidectomy, foot surgery. - Social history includes denying smoking or alcohol use. Says she lives independently alone. Has some help with daytime caregivers. Only family nearby is a daughter who has schizophrenia, thus patient is daughters primary caregiver. Admission Exam Per Admitting Provider GENERAL: Awake, alert, well-appearing, in no acute distress. Very conversational. HENT: Normocephalic, atraumatic. Oropharynx has dry mucous membranes. EYES: Normal conjunctiva. Sclera non-icteric. NECK: Inspection normal. Supple and full ROM. No nuchal rigidity. CARDIAC: +S1S2 RRR, no murmurs. RESPIRATORY: Clear to auscultation. No wheezes or rales. Normal respiratory effort. GI: +BS, soft, non-distended. No overt focal tenderness to palpation including in the right upper quadrant. No rebound or guarding. Ostomy in place, pink and moist. EXTREMITIES: No pedal edema or calf tenderness. Moving all extremities naturally and easily. NEURO: No gross neuro deficits. However, she does have some mild and equally generalized tenderness on palpation of various areas of her body to include her arms, legs, abdomen, and back. She denies any focal tenderness over the thoracic or lumbar spine. Principal Diagnosis New Lung Masses, Possible mets to T8, Left Sided Pain Discharge Exam Constitutional WD/WN, vitals as above no acute distress Eyes + anicteric sclerae and PERRL ENMT Ears: + hearing impairment Respiratory normal respiratory effort, lungs clear to auscultation Cardiovascular Rate/Rhythm: regular rate and regular rhythm Heart Sounds: normal S1 and normal S2 Gastrointestinal (Abdomen) Inspection/Auscultation: normal bowel sounds Percussion/Palpation: abdomen soft; abdomen nontender and no guarding ostomy present Musculoskeletal Head/Neck/Chest: normocephalic and head atraumatic Extremities: extremities normal to inspection and strength 5/5 throughout; no clubbing Neurologic moves all extremities and awake; no focal motor deficits Cranial Nerves: PERRL Psychiatric A+Ox3, euthymic affect Lymphatic no cervical or axillary lymphadenopathy Discharge Data Allergies Allergy/AdvReac Type Severity Reaction Status Date / Time erythromycin base Allergy Severe RASH Unverified 05/21/19 11:42 meperidine Allergy Severe Dizziness Unverified 05/21/19 11:42 and "itchiness" all over morphine Allergy Severe Dizziness Unverified 05/21/19 11:42 and "itchiness" all over adhesive Allergy Mild RASH Verified 05/21/19 11:42 isopropyl alcohol Allergy Mild RASH Verified 05/21/19 11:42 diphenhydramine Allergy Unknown SEVERE Verified 05/21/19 11:42 SWEATING AND ITCHING metaproterenol Allergy Unknown RASH Verified 05/21/19 11:42 metronidazole Allergy Unknown REDNESS Verified 05/21/19 11:42 povidone-iodine Allergy Unknown RASH Verified 05/21/19 11:42 theophylline Allergy Unknown FROM Verified 05/21/19 11:42 UNCODED ALL. zinc oxide Allergy Unknown RASH Verified 05/21/19 11:42 nitroglycerin AdvReac Intermediate HYPOTENSION Verified 05/21/19 11:42 AND PT PASSES OUT tramadol AdvReac Intermediate LOW BP Verified 05/21/19 11:42 guaifenesin AdvReac Unknown FROM Verified 05/21/19 11:42 VICODIN COUGH SYRUP-VERTIGO,HYPERALERTNESS hydrocodone AdvReac Unknown "VICODIN Verified 05/21/19 11:42 COUGH MED",MORPHINE AND LORTAB OK lorazepam AdvReac Unknown oversedation,fecal Verified 05/21/19 11:42 incontinence Consultations 05/21/19 13:58 ED Decision to Admit Stat 05/21/19 15:42 Consult Case Management - Discharge Planning Routine 05/22/19 11:01 Consult General Surgery Routine 05/23/19 17:22 Consult Gastroenterology Routine 05/23/19 21:06 Consult Oncology Routine 05/24/19 09:00 Consult Thoracic Surgery Routine 05/24/19 14:00 Consult Oncology Routine Ordered Studies 05/21/19 11:10 US gallbladder Stat 05/23/19 11:56 CT abd pelvis oral and IV con Urgent 05/23/19 17:04 CT chest wo con Routine 05/23/19 ECHO 05/24/19 HIDA 05/25/19 08:02 US FNA w/img 1st lesion Routine 05/25/19 09:00 CT guided needle placement Urgent Hospital Course (1) Thoracic back pain: (2) Left flank pain: * KUB to look for evidence of stones on 05/22 -- study inconclusive secondary to stool burden -- given bowel regimen with resulting BM * Lipase elevation resolved * CT A/P 05/23 - no acute process within the abdomen. Recommended CT chest for new pulm lesion - CT of the chest with neoplastic lung lesion as well as mets to T8 * HIDA unremarkeable * Pain control - will add decadron for back pain due to metastasis, continue oxycodone * Consulted Dr. Rangel and Dr. Dowling (3) Neoplasm of lung: * CT chest as above * Needle biopsy this morning in radiology -- results to be available in the next week * Follow up with Dr. Rangel and Dr. Dowling as outpatient (4) Hematuria: * As above, microscopic, persistent * UC with mixed jonathan * Has seen Urology in the past, Dr. Ross-outpatient follow-up (5) Dehydration: * resolved (6) Fibromyalgia: * Possible fibromyalgia flare during admission, however likely from new lung masses/metastasis as above (7) Elevated blood pressure reading: * No home medications -- likely secondary to pain. BP 153/76 prior to discharge * Will need close outpatient follow up if BP remains elevated with resolution of pain (8) Cholelithiasis: * GB U/s equivocal for acute cholecystitis * CT A/P as above * General surgery consulted -- HIDA unremarkeable. No intervention required. (9) Asthma: * Per patient. As zariflukast non-formulary, patient had not been receiving -- patient without s/sx exacerbation during admission. Resumed at discharge. (10) Peripheral neuropathy: * Secondary to short bowel syndrome. Follows with Dr. Hawk as outpatient -- patient managed with vitamins as outpatient. Voltaren, tylenol as needed while inpatient. (11) Osteopenia: * Follows with PCP -- most recent Reclast last year * Most recent Thoracic Spine Xray 11/18 with moderate degenerative changes but no acute process * CT abd/pelvis on 04/27 with small hepatic cysts/hypodensities unchanged from previous exams, gallstones present with thickening of wall (12) Murmur: * No heart history -- murmur on exam, LLSB. Follow up with PCP * EKG -- 66bpm, SR with 1st degree AV block * ECHO -- LVEF 65-70%, normal LV size, systolic function. no wma, LVG. Mild left atrial dilation (13) Breast cancer of upper-inner quadrant of left female breast: * Hx triple negative breast ca. S/p L mastectomy * Follows with Dr. Dowling as outpatient - consulted as above --> will need close follow up * Most recent Mammogram 04/12/19 of the right breast without evidence of malignancy * CT chest as above (14) Elevated INR: * INR 1.2 day of discharge -- not on any anticoagulants -- no hx liver dz -- * Appears patient with history of elevated INR -- most recent in our system 1.3 -- with h/o short bowel, patient may have vitamin k deficiency. Given 5mg Vit K and INR decreased to 1.2 prior to discharge. (15) DVT prophylaxis: * Lovenox SQ while inpatient -- discontinued prior to biopsy Patient discharged home and needs to follow up with Dr. Rangel, Dr. Dowling, and Dr. Garcia. Total Time Total Time Spent Total Time Spent (In Minutes): 50 Discharge Plan Discharge Items Patient Disposition: Home - Self-Care Reason For Visit: DEHYDRATION AND FLANK PAIN Discharge Diagnosis: Lung Mass, Left Sided Pain Goals: You have been hospitalized for an acute medical problem. During your stay at [facility], we have made an effort to correct the problem that brought you to the hospital while keeping you as comfortable as possible. Medications were used to bring your condition under control and your discharge instructions will include directions for any medications you should take after leaving the hospital. Please make sure you see your Primary Care Provider as part of your follow up plan. Activity: Resume your previous activity Non-emergency contact: Primary Care Provider Call non-emergency contact if: you have any medication questions, your symptoms worsen and your pain is not controlled Follow-up/Referrals: Foster Garcia MD [Primary Care Provider] - (Please, follow up with Dr. Garcia. *A nurse will call you with appointment information. If you have any questions, call his office at [phone].) Michele Rangel MD, FACS [Surgeon] - (Please, follow up with Dr. Rangel (cardiothoracic surgeon). *A nurse from this office will call you with appointment details. The office is located at [address] [place] [address] in [place]. If you have any questions, call the office at [phone].) Curt Dowling [Physician] - 06/16/19 2:30 pm (Please, follow up with Dr. Dowling on FridayJune 16 at 2:30 pm. *If you need to change this appointment, call the office at [phone].) Diet: Regular Addtl Attending Provider Instructions: You were found to have two masses in your lung with possible spread to your bone. A biopsy was taken this morning in radiology. The results should be available in the next week. You have been sent in a prescription for pain medication. This medication is oxycodone and you have been receiving this while you have been in the hospital. As discussed, please take this medication only as needed, as it can worsen constipation as well as other side effects. You may want to use over the counter miralax/colace if you are unsuccessful with your lemon essential oils in order to prevent abdominal pain. Your HIDA scan (to look at the gallbladder) was without abnormality. Follow up appointments are being made for Dr. Dowling (Oncology) as well as Dr. Rangel (Thoracic Surgery) and Dr. Garcia. Your appointment with Dr. Dowling is scheduled as above, but your appointment with Dr. Rangel will be scheduled when the office opens back up on . If you do not hear anything by Friday, please call the office. Please return to the emergency room with any worsening pain, shortness of breath, or for any other symptoms that are concerning for you. It has been a pleasure being a part of the medical team providing for you during your hospitalization. Have a Lisa Izzy! Pending Studies at Discharge: Yes Studies:: Tissue biopsy Stand-Alone Forms: My [facility], Opioid Pain Management, Work/School Release (Inpt), Smoking Cessation Medications and DC Order Prescriptions: New oxycodone 5 mg Tablet 5 - 10 mg PO Q4H PRN (Reason: pain) Qty: 18 RF: 0 Continued zoledronic pope-xywrhwfm-vhihd 5 mg/100 mL piggyback 5 mg IV YEARLY Qty: 100 RF: 0 zafirlukast 20 mg tablet See Rx Instructions .ROUTE .COMPLEX Qty: 60 RF: 5 loratadine 10 mg tablet 10 mg PO DAILY PRN (Reason: Allergy Symptoms) RF: 0 cranberry conc-ascorbic acid 1 cap PO DAILY RF: 0 vitamin B complex capsule 1 cap PO DAILY RF: 0 acetaminophen 500 mg capsule 500 mg PO BID RF: 0 coenzyme Q10 [Co Q-10] 10 mg capsule 10 mg PO DAILY RF: 0 biotin 5 mg capsule 5 mg PO QAM RF: 0 minocycline 50 mg capsule 50 mg PO QAM RF: 0 oxycodone 5 mg tablet 5 mg PO UD RF: 0 Centrum 9 mg iron/ 15 mL (15 mL) Liquid 15 ml PO QAM RF: 0 ergocalciferol (vitamin D2) 50,000 unit capsule 50,000 units PO TUFR@1200 RF: 0 diclofenac sodium 1 % kit 4 gm TOP UD RF: 0 calcium carbonate-vitamin D3 500 mg(1,250mg) -200 unit Powder In Packet 1 ea PO BIDM RF: 0 Discharge Orders: Discharge Order (Routine); Ordered 05/25/19 Ordered By: Dayna Gutierrez/Other Patient Handouts: Biopsy Lung CT Guided Lung Admission Data Admit Date/Time: 05/23/19 14:29 Attending Provider: Blake Ross Admit Provider: Yunior Jensen Primary Care Provider: Foster Garcia Other Providers: Palmer Dupont ; Curt Dowling ; Marino Lee ; Blake Ross ; Michele Rangel Other Interventions: Discharge Summary Assessment (RN) Last Done: 05/25/19 14:05 DC Date/Time DO NOT enter until pt leaves facility: 05/25/19 15:10 Supervising Physician Co-Signing Physician Notes I supervised Dayna Cook PA-C on this patient's care. I examined the patient today independently of her. I discussed the plan of care with her with the plan being as written in her note except for any following changes/exceptions: None. Doing well after her biopsy. Cleared for discharge by Dr. Rangel. Will follow up with Dr. Garcia, Dr. Dowling, and Dr. Rangel in the office for possible breast cancer recurrence.
--- NOTE | 2019-05-25 14:15 | Oncology Consultation ---
Date of Consultation May 24, 2019 Assessment & Plan (1) Neoplasm of lung: The lower of the two lung nodules starts just above the area visualized on her CT in late April. Her other areas of disease were not imaged by that study either. Her symptoms are a bit unusual. The T8 lesion does not localize well with her flank pain, but it could perhaps be radicular. The findings are obviously quite concerning for malignancy. Although the large majority of cases of recurrent TNBC happen in the first 3-4 years, she was at very high risk for recurrence given her refusal of adjuvant therapy. She should undergo tissue sampling to establish a diagnosis. She should also be referred to radiation oncology to discuss RT to the T8 lesion. She has no cord compression symptoms, so this can likely be done as an outpatient, once we've established a diagnosis. I will see her in short term follow up to make further arrangements. Present on Admission?: Yes (2) Thoracic back pain: She will likely need increased opiate doses prior to discharge. She also would benefit from some additional laxative therapy. I spoke with Dr. Ross last evening, who arranged for an extra dose of Miralax. Present on Admission?: Yes History of Present Illness Reason for Consultation: Lung and bone lesions Breast cancer Attending Physician: Blake Ross MD History of Present Illness Mrs. 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 She also has a history of chronic pain, fibromyalgia, cholelithiasis, and asthma. 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 She had a mastectomy, but refused adjuvant radiation or chemotherapy due to concerns for toxicity. She has been followed in surveillance since that time, with several PET CTs due to a possible abnormality in her mediastinum which was stable for a year and was most likely unrelated to cancer. She saw me most recently in April. At that time, she was complaining of some cramping abdominal discomfort that she related to her chronic bowel issues. However, since they had worsened, I ordered a CT A/P that was done around and was reported as showing no acute issues, though she did have some gallstones. She presented to the ER on 05/21 with some worsening flank pain and dehydration. An initial workup was unrevealing and so on 05/23, she underwent a repeat CT CAP. This revealed two new masses in her left lung and a likely lytic bone lesion at T8 with mild epidural extension. She complained primarily of constipation during our encounter. She had a bowel movement the previous morning but hadn't since. She had been requiring some IV narcotics and is very concerned, as narcotics often make her constipated. She denied any numbness, weakness, or pain in her legs or trunk. She had some urinary retention but no change in her stool continence or gait. Allergies Allergy/AdvReac Type Severity Reaction Status Date / Time erythromycin base Allergy Severe RASH Unverified 05/21/19 11:42 meperidine Allergy Severe Dizziness Unverified 05/21/19 11:42 and "itchiness" all over morphine Allergy Severe Dizziness Unverified 05/21/19 11:42 and "itchiness" all over adhesive Allergy Mild RASH Verified 05/21/19 11:42 isopropyl alcohol Allergy Mild RASH Verified 05/21/19 11:42 diphenhydramine Allergy Unknown SEVERE Verified 05/21/19 11:42 SWEATING AND ITCHING metaproterenol Allergy Unknown RASH Verified 05/21/19 11:42 metronidazole Allergy Unknown REDNESS Verified 05/21/19 11:42 povidone-iodine Allergy Unknown RASH Verified 05/21/19 11:42 theophylline Allergy Unknown FROM Verified 05/21/19 11:42 UNCODED ALL. zinc oxide Allergy Unknown RASH Verified 05/21/19 11:42 nitroglycerin AdvReac Intermediate HYPOTENSION Verified 05/21/19 11:42 AND PT PASSES OUT tramadol AdvReac Intermediate LOW BP Verified 05/21/19 11:42 guaifenesin AdvReac Unknown FROM Verified 05/21/19 11:42 VICODIN COUGH SYRUP-VERTIGO,HYPERALERTNESS hydrocodone AdvReac Unknown "VICODIN Verified 05/21/19 11:42 COUGH MED",MORPHINE AND LORTAB OK lorazepam AdvReac Unknown oversedation,fecal Verified 05/21/19 11:42 incontinence Home Medications Home Medications Medication Instructions Recorded Confirmed Type zafirlukast 20 mg tablet See Rx Instructions .ROUTE 01/22/19 05/21/19 Rx .COMPLEX #60 tablet zoledronic nxvm-odwxtowy-dqsul 5 5 mg IV YEARLY #100 ml 01/22/19 05/21/19 Rx mg/100 mL in mannitol 5 %-water intravenous piggybck cranberry conc-ascorbic acid 1 cap PO DAILY 01/26/19 05/21/19 History loratadine 10 mg tablet 10 mg PO DAILY PRN tab 01/26/19 05/21/19 History vitamin B complex 1 cap PO DAILY 01/26/19 05/21/19 History acetaminophen 500 mg capsule 500 mg PO BID cap 02/18/19 05/21/19 History biotin 5 mg capsule 5 mg PO QAM 02/18/19 05/21/19 History coenzyme Q10 10 10 mg capsule 10 mg PO DAILY cap 02/18/19 05/21/19 History minocycline 50 mg capsule 50 mg PO QAM 02/18/19 05/21/19 History Centrum 15 ml PO QAM 05/21/19 05/21/19 History calcium carbonate-vitamin D3 1 ea PO BIDM 05/21/19 05/21/19 History diclofenac sodium 4 gm TOP UD 05/21/19 05/21/19 History ergocalciferol (vitamin D2) 50,000 units PO TUFR@1200 05/21/19 05/21/19 History oxycodone 5 mg PO UD 05/21/19 05/21/19 History oxycodone 5 - 10 mg PO Q4H PRN #18 tab 05/25/19 Rx Patient History Medical History Asthma (Chronic 02/02/13) Breast cancer (Acute) "Breast cancer, left breast, invasive ductal carcinoma, grade 3, ER/AZ/Her2- 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, pT2N0, stage IIA" Breast cancer of upper-inner quadrant of left female breast (Chronic) Cholelithiasis (Chronic) Desmoid tumor (Acute) 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 Fibromyalgia (Chronic 02/02/13) Gastroesophageal reflux disease (Chronic 02/02/13) Hearing loss (Chronic) Hemorrhage following tonsillectomy and adenoidectomy Intractable back pain (Acute) Kidney stone (Acute) Low back pain (Chronic) Nonallopathic lesion of lumbar region (Acute 04/17/14) Osteoarthritis (Chronic) Osteopenia (Chronic) Peripheral neuropathy (Chronic) Rosacea (Chronic 02/02/13) 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) Vitamin B deficiency (Chronic) Surgical History H/O: hysterectomy History of colostomy (Chronic) History of mastectomy (Chronic) S/P gastric surgery S/P small bowel resection Family History Father Acute myocardial infarction History of heart valve replacement Congestive heart failure Mother Stroke syndrome Cardiomegaly Other Family history non-contributory Social History Preferred Language: Czech Communication Ability: Effective Structural Shop Helper Required: No Beliefs That Will Affect Care: None Current Living Situation: Alone Other Information That Helps Us Care for You: No Feels Safe at Home: Yes Safety Concerns: Feels Safe At This Time Smoking Status: Never smoker Do You Dip or Chew Tobacco: No ; Second Hand Exposure: No ; Tobacco Cessation Education Requested by Patient: No Hx Alcohol Use: No Hx Substance Use: Yes substance use type: opiates and painkillers Last Used Substance: Hours (ago) Last Used Substance Other:: 0300 Oxycodone per patient history Review of Systems Constitutional: + fatigue and + weakness (generalized); no fever Respiratory: + cough; no dyspnea Cardiovascular: no chest pain, no dyspnea on exertion and no edema Gastrointestinal: + abdominal pain (chronic) and + constipation; no nausea Genitourinary: + flank pain (on the right); no dysuria and no hematuria Neurologic: no gait abnormality, no localized weakness, no numbness and no headache(s) Physical Exam Constitutional: + thin and comfortable; no acute distress ENMT: external ear and nose normal, oropharynx normal Respiratory: normal respiratory effort, lungs clear to auscultation Cardiovascular: RRR, no murmur, no edema Gastrointestinal (Abdomen): Inspection/Auscultation: normal bowel sounds; abdomen not distended Percussion/Palpation: abdomen soft; abdomen nontender Musculoskeletal: 5/5 strength in all muscle groups of her lower extremities bilaterally Neurologic: patellar DTR's 2+ bilat, sensation intact Psychiatric: A+Ox3, euthymic affect Results & Data Vital Signs (Past 12 Hours) Vital Signs Temp Pulse Pulse Resp BP Pulse Ox 05/25/19 14:05 37.0 C 69 69 16 153/76 H 97 12/24/19 11:25 37.0 C 69 16 153/76 H 97 05/25/19 10:47 69 16 169/89 H 96 05/25/19 10:34 36.7 C 65 16 163/90 H 97 05/25/19 07:59 36.8 C 68 12 138/70 93 Laboratory Results Laboratory Tests 05/24/19 05/24/19 05:33 05:33 WBC 4.44 L Hgb 11.7 L Plt Count 190 Creatinine 0.86 Calcium 8.4 L Albumin 3.[address] Chest, 05/23/19: IMPRESSION: 1. 2.9 x 2.5 cm irregular solid lingular nodule new since PET/CT of February 07, 2016. This is neoplastic and may reflect metastatic breast cancer or a primary lung carcinoma. 2. 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 Additional right second rib skeletal metastasis. 3. 1.8 cm pleural-based nodule overlying the lingula likely reflects a pleural implant. CT A/P, 05/23/19: IMPRESSION: 1. 2.6 cm mass-like density within the mid to lower left lung. A chest CT is recommended to exclude a neoplastic process. 1.9 cm left cardiophrenic angle/pleural-based nodule which can also be assessed on chest CT. 2. No acute process within the abdomen or pelvis. Multiple decompressed small bowel loops within the lower abdomen and pelvis however the appearance is similar to prior exams and oral contrast reaches the rectum. Therefore, there is no evidence for a bowel obstruction. 3. Cholelithiasis. No evidence for acute cholecystitis.
[2019-05-25] MEDS ORDERED: DICLOFENAC SOD 1% GEL 100 GM TUBE EXT SCH (21:00)
--- NOTE | 2019-06-03 11:33 | Coding Query ---
PATHOLOGY To promote full compliance with coding requirements relating to patient care, physician participation is requested in all cases of wind farm engineer uncertainty. Please assist us with the question(s) below: Please review the Pathology report and please document any relevant diagnosis(es) below. Patient with prior history breast cancer admitted with flank pain. Metastatic lesion to thoracic vertebrae. Left pleura biopsy done. Please review path report and indicate primary and/or seconday site . Thank you ! DIPAK Mark CCS Diagnosis(es): LIkely secondary site of breast adenocarcinoma MTDD
== END 2019-05-25 15:10 | disposition home or self-care (01) | DRG 543 ==
LOC: ED 10:16 → 3N 10:16 → SUATTDRO 14:16 → 3N 15:10 → SUATTDRO 05-23 14:29

== ENCOUNTER 2019-06-27 18:23 | Inpatient (IN) ==
[2019-06-27] MEDS ORDERED: MoRPHine SULFATE 4 MG/ML 1 ML CARP\\VIAL IV STA (18:40)
[2019-06-27] MEDS ORDERED: SODIUM CHLORIDE 0.9% 1000ML 1,000 ML IV SCH (18:45)
[2019-06-27 19:14] LABS: Basophils # (auto) 0.01 K/uL (0-0.2); Basophils % (auto) 0.2 %; Eosinophils # (auto) 0.03 K/uL (0-0.5); Eosinophils % (auto) 0.6 %; Hematocrit (blood only) 36.8 % (37-47); Hemoglobin 12.2 g/dL (12.0-16.0); Immature Granulocytes # (auto) 0.02 K/uL (0.00-0.02); Immature Granulocytes % (auto) 0.4 %; Lymphocytes # (auto) 0.91 K/uL (1.2-3.4); Lymphocytes % (auto) 18.4 %; Mean Corpuscular Hemoglobin 29.8 pg (25-34); Mean Corpuscular Hgb Conc 33.2 g/dL (32-36); Mean Platelet Volume 10.6 fL (7.4-10.4); Monocytes # (auto) 0.55 K/uL (0.11-0.59); Monocytes % (auto) 11.1 %; Neutrophils # (auto) 3.43 K/uL (1.4-6.5); Neutrophils % (auto) 69.3 %; Platelet Count 205 K/uL (130-400); RDW Coefficient of Variation 13.1 % (11.5-14.5); Red Blood Count 4.09 M/uL (4.2-5.4); White Blood Count 4.95 K/uL (4.8-10.8)
[2019-06-27 19:38] LABS: Albumin Level 3.7 gm/dl (3.4-5.0); BUN Creatinine Ratio 32.8 (10-20); Calcium 8.7 mg/dl (8.5-10.1); Creatinine Clr Calc Pharmacy 52.3 ml/min; Est GFR (African American) 88.8; Est GFR (Non-African American) 76.6; Magnesium 2.2 mg/dl (1.8-2.4)
[2019-06-27 19:49] LABS: Bilirubin,Total 0.4 mg/dl (0.2-1); Globulin 3.6 gm/dl (2.5-4.0); Thyroid Stimulating Hormone 0.628 uIu/ml (0.300-4.500); Total Protein 7.3 gm/dl (6.4-8.2)
[2019-06-27] MEDS ORDERED: IOVERSOL 100ml IV PRN (19:56)
[2019-06-27] MEDS ORDERED: ONDANSETRON INJ 2 MG/ML 2 ML VIAL IV STA (20:15)
--- NOTE | 2019-06-27 20:36 | CT Scan Report ---
ABDOMEN AND PELVIS CT WITH IV CONTRAST CT DOSE: 237.51 mGy.cm HISTORY: Acute right-sided back pain. History of lung cancer with spinal metastasis. h/o lung CA w/ spine mets, R sided back pain TECHNIQUE: Multiaxial CT images of the abdomen and pelvis were performed following the IV administrat ion of 94 cc of Optiray 320, A dose lowering technique was utilized adhering to the principles of AL RYAN. COMPARISON STUDY: CT abdomen and pelvis 05/23/2019 FINDINGS: Mild bibasilar atelectasis. Subpleural 7 mm solid nodule of the left lung base on image 13 series 3 a ppears new from prior suggestive of a new pleural metastatic lesion. Pulmonary mass of the left midlu ng redemonstrated on the molded grid and parts inspector localizer images. No pneumatosis or pneumoperitoneum identified. The i brittani inferior cardiac chambers appear enlarged. Moderate generalized pancreatic atrophy. Unremarkable spleen and adrenal glands. Mild gallbladder wal l thickening with multiple large gallstones. There is also mild pericholecystic edema. No choledochol ithiasis or significant biliary ductal dilation identified. There are a few subcentimeter hypodense f oci of the liver redemonstrated suggestive of cysts measuring up to 6 mm within the left hepatic lobe . No definite evidence of hepatic metastasis. Patency of the hepatic and portal veins. Cortical scarring with parenchymal thinning of the interpolar left kidney. No ureteral calculi. Mild dilation noted within portions of the right ureter. Moderate urinary bladder distention. Uterus appea rs surgically absent. Extensive mixed plaque of the abdominal aorta without aneurysm. Unremarkable IV C. Multiple postoperative changes of the bowel. Mild nonspecific wall thickening of the distal esopha maria esther with prominent 6 mm paraesophageal lymph node. Moderate fecal retention. There is no bowel obstru ction or bowel wall thickening identified. Appendectomy. Postoperative changes of the ventral abdomin al wall. Mild nodularity of the omentum within the lateral left midabdomen likely correlates with pre viously noted vascular structures. Demineralized appearance of the bones. Multilevel degenerative changes of the spine, with additional osteoarthritis of the pelvis and hips. No acute fracture or subluxation. No new metastatic osseous le sions or acute pathologic fractures. IMPRESSION: 1. Cholelithiasis with mild gallbladder wall thickening and trace pericholecystic edema. Correlate wi th clinical exam findings and laboratory analysis to exclude acute cholecystitis. 2. No acute fracture, subluxation, or new skeletal metastasis identified to correlate with the patien t's reported new lower back pain. 3. 7 mm subpleural nodule of the left lower lobe suggests a new pleural metastasis. 4. No bowel obstruction or bowel wall thickening. 5. Additional findings as above. ACT 112: Negative or not required by law. The above report was generated using voice recognition software. It may contain grammatical, syntax o r spelling errors. Electronically signed by: Yunior Duran M.D. 06/27/2019 8:35 PM
[2019-06-27 21:54] LABS: Appearance Urine Clear (Clear); Bacteria Urine Automated Negative (Negative); Bilirubin Urine Negative (Negative); Blood Urine Trace (Negative); Color Urine Yellow; Glucose Urine UA Negative (Negative); Ketones Urine Negative (Negative); Leukocyte Esterase Urine Negative (Negative); Nitrite Urine Negative (Negative); Protein Urine Negative (Negative); RBC Urine Automated 0-4 /hpf (0-4); Specific Gravity Urine 1.028 (1.000-1.030); Urobilinogen Urine Negative (Negative)
--- NOTE | 2019-06-27 22:30 | History & Physical Report ---
Date of Service June 27, 2019 Assessment & Plan (1) Acute cholecystitis: CT scan, ultrasound and clinical examination most suggestive of acute cholecystitis. Placed on ceftriaxone 1 g IV daily. General surgery Dr. Drake aware. NPO. IV fluids. Zofran 4 mg IV every 6 hours as needed. Dilaudid 0.5 mg IV every 3 hours as needed severe pain. Order HIDA scan NM. Present on Admission?: Yes (2) Back pain: Likely referred pain from gallbladder Present on Admission?: Yes (3) Malignant neoplasm of upper-inner quadrant of left breast in female, estrogen receptor negative: Patient continues with chemotherapy with Dr. Dowling. For now, hold oral pain medications, and changed to IV Dilaudid as noted above. Present on Admission?: Yes (4) Metastatic cancer to lung: See above Present on Admission?: Yes History of Present Illness Chief Complaint: The patient is referred to the emergency department by her product handler due to concerns regarding worsening back pain, that was thought secondary to metastatic breast cancer Primary Care Provider: Foster Garcia MD The patient is a old female past medical history including metastatic breast cancer, presently undergoing chemotherapy, who has had pain medications adjusted to Help control pain. She reports that 3 days ago she developed pain in her right mid back area, that was not where her cancer was. Work-up in emergency department included CT scan of abdomen pelvis, which suggested acute cholecystitis as the possible cause of her new pain. Allergies Allergy/AdvReac Type Severity Reaction Status Date / Time erythromycin base Allergy Severe RASH Verified 06/27/19 18:50 meperidine Allergy Severe Dizziness Verified 06/27/19 18:50 and "itchiness" all over adhesive Allergy Mild RASH Verified 06/27/19 18:50 metaproterenol Allergy Mild RASH Verified 06/27/19 18:50 metronidazole Allergy Mild REDNESS Verified 06/27/19 18:50 povidone-iodine Allergy Mild RASH Verified 06/27/19 18:50 zinc oxide Allergy Mild RASH Verified 06/27/19 18:50 theophylline Allergy Unknown FROM Verified 06/27/19 18:50 UNCODED ALL. diphenhydramine AdvReac Severe SEVERE Verified 06/27/19 18:50 SWEATING AND ITCHING nitroglycerin AdvReac Severe HYPOTENSION Verified 06/27/19 18:50 AND PT PASSES OUT, WAS BROUGHT TO ER. guaifenesin AdvReac Intermediate FROM Verified 06/27/19 18:50 VICODIN COUGH SYRUP-VERTIGO,HYPERALERTNESS lorazepam AdvReac Intermediate oversedation,fecal Verified 06/27/19 18:50 incontinence tramadol AdvReac Intermediate LOW BP Verified 06/27/19 18:50 hydrocodone AdvReac Unknown "VICODIN Verified 06/27/19 18:50 COUGH MED",MORPHINE AND LORTAB OK Home Medications Home Medications Medication Instructions Recorded Confirmed Type zafirlukast 20 mg tablet See Rx Instructions .ROUTE 01/22/19 06/27/19 Rx .COMPLEX #60 tablet zoledronic pime-ehgxqlih-ggjuc 5 5 mg IV YEARLY #100 ml 01/22/19 06/27/19 Rx mg/100 mL in mannitol 5 %-water intravenous piggybck cranberry conc-ascorbic acid 1 cap PO DAILY 01/26/19 06/27/19 History loratadine 10 mg tablet 10 mg PO DAILY PRN tab 01/26/19 06/27/19 History vitamin B complex 1 cap PO DAILY 01/26/19 06/27/19 History acetaminophen 500 mg capsule 500 mg PO BID cap 02/18/19 06/27/19 History biotin 5 mg capsule 5 mg PO QAM 02/18/19 06/27/19 History coenzyme Q10 10 mg capsule 10 mg PO DAILY cap 02/18/19 06/27/19 History minocycline 50 mg capsule 50 mg PO QAM 02/18/19 06/27/19 History Centrum 15 ml PO QAM 05/21/19 06/27/19 History diclofenac sodium 4 gm TOP UD 05/21/19 06/27/19 History ergocalciferol (vitamin D2) 50,000 units PO 2XWK 05/21/19 06/27/19 History calcium carbonate 500 1 ea PO BIDM 06/17/19 06/27/19 History mg(1,250mg)-vitamin D3 200 unit oral powder pack morphine 15 mg immediate release 15 mg PO .q4-6h PRN tab 06/21/19 06/27/19 History tablet morphine 10 mg/5 mL oral solution 10 mg PO ONCE PRN ml 06/22/19 06/27/19 History oxycodone 5 - 10 mg PO ONCE PRN 06/27/19 06/27/19 History Past Med/Surg History Medical History Asthma (Inactive 02/02/13) Breast cancer (Inactive) "Breast cancer, left breast, invasive ductal carcinoma, grade 3, 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, pT2N0, stage IIA";Biopsy done 10/28/14 Breast cancer of upper-inner quadrant of left female breast Cholelithiasis 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; Fibromyalgia (Inactive 02/02/13) Hearing loss (Inactive) Hepatitis Intractable back pain (Inactive) Kidney stone (Inactive) Lesion of vertebra T8 lesion Low back pain (Inactive) Mass of left lung FNA 05/25/19 metastatic - breast as primary Osteoarthritis (Inactive) Osteopenia (Inactive) Peripheral neuropathy (Inactive) Rosacea (Inactive 02/02/13) Sclerosing mesenteritis Short bowel syndrome (Inactive) Vitamin B deficiency (Inactive) Vitamin D deficiency (Inactive) Surgical History H/O adenoidectomy H/O: hysterectomy History of cataract surgery History of mastectomy (Inactive) Left mastectomy with SLN biopsy on 10/28/14 Hx of tonsillectomy S/P small bowel resection Removed 2 feet of intestine due to small bowel obstructions;found a mass - desmoid tumor Status post left foot surgery Splastic implant in left great toe; Surgically created abdominal mucous fistula Family History Father , 80yo Acute myocardial infarction History of heart valve replacement Congestive heart failure Mother , 79yo Stroke syndrome Cardiomegaly Sister Dementia Carotid artery disease Son Spinal stenosis Daughter Schizophrenia OCD (obsessive compulsive disorder) Other Family history non-contributory Social History Preferred Language: Latvian Communication Ability: Effective Visual Impairment: No Limitations Hearing Ability: Normal Flux Plant Operator Required: No Beliefs That Will Affect Care: None marital status: / Current Living Situation: Alone Current Living Situation Comment: Lives in apartment. 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 Other Information That Helps Us Care for You: No Feels Safe at Home: Yes Safety Concerns: Feels Safe At This Time Smoking Status: Never smoker Second Hand Exposure: No ; Hx Alcohol Use: No Hx Substance Use: No caffeine: No during the past year weight has: remained stable Review of Systems Review of Systems: The patient denies chest pain, palpitations, shortness of breath, dyspnea on exertion, cough, lower extremity swelling, sore throat, fevers, chills, sweats, vomiting, diarrhea , constipation, abdominal pain, pelvic pain, blood in urine or stool, dysuria, urinary frequency or urgency, loss of consciousness, rash, abnormal bruising or bleeding, imbalance, focal weakness, numbness or tingling in arms or legs, neck pain, or night sweats. The review of systems is otherwise negative other than for that already noted above, and at least 10 systems have been reviewed. Physical Exam Physical Exam: The patient is awake, alert and oriented 3, normocephalic and atraumatic, lying in bed and in mild to moderate distress due to pain. HEENT--PERRL, EOMI, mucous membranes and oropharynx dry. Neck--supple. No JVD. No bruits. Thyroid normal, trachea midline, no adenopathy. Heart--normal S1 and S2. No murmurs, rubs or gallops. Lungs--clear bilaterally, no respiratory distress, no accessory muscle use. Abdomen--normal bowel sounds and soft. Nontender. Nondistended. Reproducible pain over right back area radiating around from right upper quadrant Extremities--no cyanosis or clubbing. No edema. Dermatologic--normal skin turgor, normal color, no abnormal lymph nodes, no rash. Neurologic--cranial nerves II through XII grossly intact. Rheumatologic--normal range of motion. Psychiatric--normal affect. Results & Data Vital Signs (Past 12 Hours) Vital Signs Temp Pulse Pulse Resp BP BP Pulse Ox 06/27/19 21:31 84 17 98 06/27/19 21:30 80 14 152/86 H 98 06/27/19 21:00 74 20 150/91 H 98 06/27/19 20:30 78 22 152/104 H 95 06/27/19 20:16 82 18 169/76 H 99 06/27/19 20:13 85 22 169/76 H 100 06/27/19 19:30 74 13 166/85 H 97 06/27/19 19:00 70 21 164/102 H 98 06/27/19 18:39 98 06/27/19 18:20 97.9 F 76 20 173/108 H 98 Laboratory Results Laboratory Results WBC 4.95 K/uL (4.8-10.8) 06/27/19 18:57 RBC 4.09 M/uL (4.2-5.4) L 06/27/19 18:57 Hgb 12.2 g/dL (12.0-16.0) 06/27/19 18:57 Hct 36.8 % (37-47) L 06/27/19 18:57 MCV 90.0 fL (80-100) 06/27/19 18:57 MCH 29.8 pg (25-34) 06/27/19 18:57 MCHC 33.2 g/dL (32-36) 06/27/19 18:57 RDW Std Deviation 43.0 fL (36.4-46.3) 06/27/19 18:57 RDW Coeff of [place] 13.1 % (11.5-14.5) 06/27/19 18:57 Plt Count 205 K/uL (130-400) 06/27/19 18:57 MPV 10.6 fL (7.4-10.4) H 06/27/19 18:57 Immature Gran % (Auto) 0.4 % 06/27/19 18:57 Neut % (Auto) 69.3 % 06/27/19 18:57 Lymph % (Auto) 18.4 % 06/27/19 18:57 [place] % (Auto) 11.1 % 06/27/19 18:57 Eos % (Auto) 0.6 % 06/27/19 18:57 Baso % (Auto) 0.2 % 06/27/19 18:57 Immature Gran # (Auto) 0.02 K/uL (0.00-0.02) 06/27/19 18:57 Neut # (Auto) 3.43 K/uL (1.4-6.5) 06/27/19 18:57 Lymph # (Auto) 0.91 K/uL (1.2-3.4) L 06/27/19 18:57 [place] # (Auto) 0.55 K/uL (0.11-0.59) 06/27/19 18:57 Eos # (Auto) 0.03 K/uL (0-0.5) 06/27/19 18:57 Baso # (Auto) 0.01 K/uL (0-0.2) 06/27/19 18:57 Sodium 138 mmol/L (136-145) 06/27/19 18:57 Potassium 4.0 mmol/L (3.5-5.1) 06/27/19 18:57 Chloride 106 mmol/L (98-107) 06/27/19 18:57 Carbon Dioxide 28 mmol/L (21-32) 06/27/19 18:57 Anion Gap 4.0 (3-11) 06/27/19 18:57 BUN 23 mg/dl (7-18) H 06/27/19 18:57 Creatinine 0.71 mg/dl (0.6-1.2) 06/27/19 18:57 Est Cr Clr Drug Dosing 52.3 ml/min 06/27/19 18:57 Est GFR ( Amer) 88.8 06/27/19 18:57 Est GFR (Non-Af Amer) 76.6 06/27/19 18:57 BUN/Creatinine Ratio 32.8 (10-20) H 06/27/19 18:57 Glucose 110 mg/dl (70-99) H 06/27/19 18:57 Calcium 8.7 mg/dl (8.5-10.1) 06/27/19 18:57 Magnesium 2.1 mg/dl (1.8-2.4) 06/27/19 23:34 Total Bilirubin 0.4 mg/dl (0.2-1) 06/27/19 18:57 AST 15 U/L (15-37) 06/27/19 18:57 ALT 25 U/L (12-78) 06/27/19 18:57 Alkaline Phosphatase 74 U/L (45-117) 06/27/19 18:57 Total Protein 7.3 gm/dl (6.4-8.2) 06/27/19 18:57 Albumin 3.7 gm/dl (3.4-5.0) 06/27/19 18:57 Globulin 3.6 gm/dl (2.5-4.0) 06/27/19 18:57 Albumin/Globulin Ratio 1.0 (0.9-2) 01/26/20 18:57 TSH 0.628 uIu/ml (0.300-4.500) 06/27/19 18:57 Urine Color Yellow 06/27/19 21:40 Urine Appearance Clear (Clear) 06/27/19 21:40 Urine pH 5.0 (4.5-7.5) 06/27/19 21:40 Ur Specific [place] 1.028 (1.000-1.030) 06/27/19 21:40 Urine Protein Negative (Negative) 06/27/19 21:40 Urine Glucose (UA) Negative (Negative) 06/27/19 21:40 Urine Ketones Negative (Negative) 06/27/19 21:40 Urine Blood Trace (Negative) H 06/27/19 21:40 Urine Nitrite Negative (Negative) 06/27/19 21:40 Urine Bilirubin Negative (Negative) 06/27/19 21:40 Urine Urobilinogen Negative (Negative) 06/27/19 21:40 Ur Leukocyte Esterase Negative (Negative) 06/27/19 21:40 Urine WBC (Auto) 1-5 /hpf (0-5) 06/27/19 21:40 Urine RBC (Auto) 0-4 /hpf (0-4) 06/27/19 21:40 U Hyaline Cast (Auto) 1-5 /lpf (0-5) 06/27/19 21:40 U Epithel Cells (Auto) 5-10 /lpf (0-5) H 06/27/19 21:40 Urine Bacteria (Auto) Negative (Negative) 06/27/19 21:40 Diagnostic Findings [facility], [place] [phone] CT Scan Report Patient: ZAHEER ROQUE Date: 06/27/19 MR#: [id number]: [address] Acct ID:[id number]: [facility] Zip[facility] [place] [address] Age: 89Location: ED Sex: F Room/Bed: Att Phy:Diagnosis: LUMBAR BACK PAIN Jacqueline Phy: Foster Garcia MDService Date: 06/27/19 Fam Phy: Curt Dowling MDInterpreting Phy: Harjit Duran Admit Phy: Ordering Phy: Javon Jensen M.D. cc: ~ ABDOMEN AND PELVIS CT WITH IV CONTRAST CT DOSE: 237.51 mGy.cm HISTORY: Acute right-sided back pain. History of lung cancer with spinal metastasis. h/o lung CA w/ spine mets, R sided back pain TECHNIQUE: Multiaxial CT images of the abdomen and pelvis were performed following the IV administration of 94 cc of Optiray 320, A dose lowering technique was utilized adhering to the principles of ALARA. COMPARISON STUDY: CT abdomen and pelvis 05/23/2019 FINDINGS: Mild bibasilar atelectasis. Subpleural 7 mm solid nodule of the left lung base on image 13 series 3 appears new from prior suggestive of a new pleural metastatic lesion. Pulmonary mass of the left midlung redemonstrated on the reimbursement analyst localizer images. No pneumatosis or pneumoperitoneum identified. The imaged inferior cardiac chambers appear enlarged. Moderate generalized pancreatic atrophy. Unremarkable spleen and adrenal glands. Mild gallbladder wall thickening with multiple large gallstones. There is also mild pericholecystic edema. No choledocholithiasis or significant biliary ductal dilation identified. There are a few subcentimeter hypodense foci of the liver redemonstrated suggestive of cysts measuring up to 6 mm within the left hepatic lobe. No definite evidence of hepatic metastasis. Patency of the hepatic and portal veins. Cortical scarring with parenchymal thinning of the interpolar left kidney. No ureteral calculi. Mild dilation noted within portions of the right ureter. Moderate urinary bladder distention. Uterus appears surgically absent. Extensive mixed plaque of the abdominal aorta without aneurysm. Unremarkable IVC. Multiple postoperative changes of the bowel. Mild nonspecific wall thickening of the distal esophagus with prominent 6 mm paraesophageal lymph node. Moderate fecal retention. There is no bowel obstruction or bowel wall thickening identified. Appendectomy. Postoperative changes of the ventral abdominal wall. Mild nodularity of the omentum within the lateral left midabdomen likely correlates with previously noted vascular structures. Demineralized appearance of the bones. Multilevel degenerative changes of the spine, with additional osteoarthritis of the pelvis and hips. No acute fracture or subluxation. No new metastatic osseous lesions or acute pathologic fractures. IMPRESSION: 1. Cholelithiasis with mild gallbladder wall thickening and trace pericholecystic edema. Correlate with clinical exam findings and laboratory analysis to exclude acute cholecystitis. 2. No acute fracture, subluxation, or new skeletal metastasis identified to correlate with the patient's reported new lower back pain. 3. 7 mm subpleural nodule of the left lower lobe suggests a new pleural metastasis. 4. No bowel obstruction or bowel wall thickening. 5. Additional findings as above. ACT 112: Negative or not required by law. The above report was generated using voice recognition software. It may contain grammatical, syntax or spelling errors. Electronically signed by: Yunior Duran M.D. 06/27/2019 8:35 PM Dictated: 06/27/192016 Transcribed: 06/27/192016 [place], [place] [phone] Ultrasound Report Patient: ZAHEER ROQUE Date: 06/27/19 MR#: [id number]: [address] Acct ID:[id number]: Date: [facility] Zip: [place] [address] Age: 89Location: ED Sex: F Room/Bed: Att Phy:Diagnosis: LUMBAR BACK PAIN Jacqueline Phy: Foster Garcia MDService Date: 06/27/19 Fam Phy: Curt Dowling MDInterpreting Phy: Harjit Duran Admit Phy: Ordering Phy: Javon Jensen M.D. cc: ~ gallbladder HISTORY: 89 years-old Female CT findings ?pericholecystic fluid cholelithiasis with pericholecystic edema COMPARISON: CT abdomen and pelvis of same day TECHNIQUE: Multiple real-time sonographic images of the abdominal right upper quadrant were obtained assessing grayscale appearance and color flow FINDINGS: Visualized pancreas is unremarkable. Liver is unremarkable without focal hepatic mass lesion. 9 mm left hepatic lobe cyst. Gallbladder wall is thickened measuring up to 4 mm. Shadowing cholelithiasis is noted. No definite pericholecystic fluid. Sonographic Golden sign reported as negative. Common bile duct is normal, 4 mm. Imaged right kidney is unremarkable without hydronephrosis. IMPRESSION: 1. Cholelithiasis with gallbladder wall thickening. Sonographic Golden sign was reported as negative and no definite pericholecystic fluid was identified. Findings could be correlated with nuclear medicine hepatobiliary scan to exclude acute cholecystitis. 2. No biliary ductal dilation. ACT 112: Negative or not required by law. The above report was generated using voice recognition software. It may contain grammatical, syntax or spelling errors. Electronically signed by: Yunior Duran M.D. 06/27/2019 11:09 PM Dictated: 06/27/192305 Transcribed: 06/27/192305 Code Status & VTE Plan Code Status full code VTE Prophylaxis Plan VTE Prophylaxis will be ordered: Yes PG Care Time/CCT Total # of Minutes Spent Total Time Spent with Patient: Total time spent is greater than 50% in coordination of care (as documented) at patient's floor/unit and/or counseling patient: Coding Level of Care Code 03544 Initial Inpt Care Lvl 2 Diagnoses Acute cholecystitis K81.0 Back pain M54.9; G89.29 Back pain laterality: right Back pain location: back pain in unspecified location Chronicity: chronic Malignant neoplasm of upper-inner quadrant of left breast in female, estrogen receptor negative C50.212; Z17.1 Metastatic cancer to lung C78.00 Laterality: unspecified laterality (1) Metastatic cancer to lung Laterality: unspecified laterality Qualified Code(s): C78.00 - Secondary malignant neoplasm of unspecified lung (2) Back pain Back pain laterality: right Back pain location: back pain in unspecified location Chronicity: chronic Qualified Code(s): M54.9 - Dorsalgia, unspecified; G89.29 - Other chronic pain
--- NOTE | 2019-06-27 23:10 | Ultrasound Report ---
US gallbladder HISTORY: 89 years-old Female CT findings ?pericholecystic fluid cholelithiasis with pericholecystic edema COMPARISON: CT abdomen and pelvis of same day TECHNIQUE: Multiple real-time sonographic images of the abdominal right upper quadrant were obtained assessing grayscale appearance and color flow FINDINGS: Visualized pancreas is unremarkable. Liver is unremarkable without focal hepatic mass lesion. 9 mm le ft hepatic lobe cyst. Gallbladder wall is thickened measuring up to 4 mm. Shadowing cholelithiasis is noted. No definite pericholecystic fluid. Sonographic Golden sign reported as negative. Common bile duct is normal, 4 mm. Imaged right kidney is unremarkable without hydronephrosis. IMPRESSION: 1. Cholelithiasis with gallbladder wall thickening. Sonographic Golden sign was reported as negative and no definite pericholecystic fluid was identified. Findings could be correlated with nuclear medic ine hepatobiliary scan to exclude acute cholecystitis. 2. No biliary ductal dilation. ACT 112: Negative or not required by law. The above report was generated using voice recognition software. It may contain grammatical, syntax o r spelling errors. Electronically signed by: Yunior Duran M.D. 06/27/2019 11:09 PM
[2019-06-27] MEDS ORDERED: HYDROmorphone INJ 0.5 MG/0.5 ML SYR IV PRN (23:23)
[2019-06-27] MEDS ORDERED: MORPHINE 10 MG PO PRN (23:23)
[2019-06-27] MEDS ORDERED: ONDANSETRON INJ 2 MG/ML 2 ML VIAL IV PRN (23:23)
[2019-06-27] MEDS ORDERED: ZOLEDRONIC ACID 5 MG/100 ML VIAL IV SCH (23:23)
[2019-06-27] MEDS ORDERED: MoRPHine SULFATE IR 15 MG TAB (IMMEDIATE RELEASE) PO PRN (23:23)
[2019-06-28] MEDS: NSS + 20MEQ KCL 20 MEQ/1,000 ML BAG IV SCH ×3 (00:10→19:18)
--- NOTE | 2019-06-28 00:41 | Emergency Department Note ---
Entered by Delaney Yang acting as a scribe for Javon Jensen MD History of Present Illness General Chief complaint: Back Injury/Pain Stated complaint: LUMBAR BACK PAIN Time Seen by Provider: 06/27/19 18:23 Source: patient Mode of arrival: EMS History of Present Illness Onset (ago): day(s) 3 Location: back Severity: similar to prior episodes Pain Consistency: + constant Quality: + stabbing and + sharp Relieved By: + none Associated symptoms: + other (back pain); no fever/chills Treatments prior to arrival: other (Oxycodone) The patient is a 89 white female w/ PMHx of intractable back pain who presents to the ED w/ CC of back pain that has been worsening over the past 3 days. She states that the pain is sharp and stabbing. The patient notes that she took three 5mg oxycodone for pain management when it first started this Friday. The patient is currently receiving chemotherapy for her spine. The patient notes that the pain is located on the right side, but her cancer is located on the left side. She is scheduled for a consult for a port in a week. She took two oxycodone this morning, which did not help her pain. She lives at home alone. Home Medications Home Medications Medication Instructions Recorded Confirmed Type zafirlukast 20 mg tablet See Rx Instructions .ROUTE 01/22/19 06/27/19 Rx .COMPLEX #60 tablet zoledronic rjsm-dgjgtktm-tcgaj 5 5 mg IV YEARLY #100 ml 01/22/19 06/27/19 Rx mg/100 mL in mannitol 5 %-water intravenous piggybck cranberry conc-ascorbic acid 1 cap PO DAILY 01/26/19 06/27/19 History loratadine 10 mg tablet 10 mg PO DAILY PRN tab 01/26/19 06/27/19 History vitamin B complex 1 cap PO DAILY 01/26/19 06/27/19 History acetaminophen 500 mg capsule 500 mg PO BID cap 02/18/19 06/27/19 History biotin 5 mg capsule 5 mg PO QAM 02/18/19 06/27/19 History coenzyme Q10 10 mg capsule 10 mg PO DAILY cap 02/18/19 06/27/19 History minocycline 50 mg capsule 50 mg PO QAM 02/18/19 06/27/19 History Centrum 15 ml PO QAM 05/21/19 06/27/19 History diclofenac sodium 4 gm TOP UD 05/21/19 06/27/19 History ergocalciferol (vitamin D2) 50,000 units PO 2XWK 05/21/19 06/27/19 History calcium carbonate 500 1 ea PO BIDM 06/17/19 06/27/19 History mg(1,250mg)-vitamin D3 200 unit oral powder pack morphine 15 mg immediate release 15 mg PO .q4-6h PRN tab 06/21/19 06/27/19 History tablet morphine 10 mg/5 mL oral solution 10 mg PO ONCE PRN ml 06/22/19 06/27/19 History oxycodone 5 - 10 mg PO ONCE PRN 06/27/19 06/27/19 History Allergies Allergy/AdvReac Type Severity Reaction Status Date / Time erythromycin base Allergy Severe RASH Verified 06/27/19 18:50 meperidine Allergy Severe Dizziness Verified 06/27/19 18:50 and "itchiness" all over adhesive Allergy Mild RASH Verified 06/27/19 18:50 metaproterenol Allergy Mild RASH Verified 06/27/19 18:50 metronidazole Allergy Mild REDNESS Verified 06/27/19 18:50 povidone-iodine Allergy Mild RASH Verified 06/27/19 18:50 zinc oxide Allergy Mild RASH Verified 06/27/19 18:50 theophylline Allergy Unknown FROM Verified 06/27/19 18:50 UNCODED ALL. diphenhydramine AdvReac Severe SEVERE Verified 06/27/19 18:50 SWEATING AND ITCHING nitroglycerin AdvReac Severe HYPOTENSION Verified 06/27/19 18:50 AND PT PASSES OUT, WAS BROUGHT TO ER. 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, pT2N0, stage IIA";Biopsy done 10/28/14 Breast cancer of upper-inner quadrant of left female breast Cholelithiasis 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; Fibromyalgia (Inactive 02/02/13) Hearing loss (Inactive) Hepatitis Intractable back pain (Inactive) Kidney stone (Inactive) Lesion of vertebra T8 lesion Low back pain (Inactive) Mass of left 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/25/19 metastatic - breast as primary Osteoarthritis (Inactive) Osteopenia (Inactive) Peripheral neuropathy (Inactive) Rosacea (Inactive 02/02/13) Sclerosing mesenteritis Short bowel syndrome (Inactive) Vitamin B deficiency (Inactive) Vitamin D deficiency (Inactive) Surgical History H/O adenoidectomy H/O: hysterectomy History of cataract surgery History of mastectomy (Inactive) Left mastectomy with SLN biopsy on 10/28/14 Hx of tonsillectomy S/P small bowel resection Removed 2 feet of intestine due to small bowel obstructions;found a mass - desmoid tumor Status post left foot surgery Splastic implant in left great toe; Surgically created abdominal mucous fistula Family History Father , 80yo Acute myocardial infarction History of heart valve replacement Congestive heart failure Mother , 79yo Stroke syndrome Cardiomegaly Sister Dementia Carotid artery disease Son Spinal stenosis Daughter Schizophrenia OCD (obsessive compulsive disorder) Other Family history non-contributory Social History Preferred Language: Yakut Communication Ability: Effective Visual Impairment: No Limitations Hearing Ability: Normal Supervisor Decorating Required: No Beliefs That Will Affect Care: None marital status: / Current Living Situation: Alone Current Living Situation Comment: Lives in apartment. 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 and A total of 10 systems reviewed and were otherwise negative Physical Exam Vital Signs Vital Signs - 24 hr 06/27/19 18:20 06/27/19 18:39 06/27/19 19:00 Temperature 36.6 C Temperature Source Oral Pulse Rate 76 70 Pulse Rate [Left Finger] Pulse Rate from SpO2 Sensor 76 Respiratory Rate 20 21 Respiratory Effort / Characteristics Non-Labored Spontaneous Respiratory Depth Normal Respiratory Pattern Regular Blood Pressure 173/108 H 164/102 H Blood Pressure [Right Arm] Blood Pressure Mean 129 131 Blood Pressure Mean [Right Arm] Blood Pressure Position [Right Arm] Pulse Oximetry 98 98 98 Oxygen Delivery Method Room Air Room Air Sepsis Recent Fever Within 48 Hours No Sepsis New/Unexplained Change in Mental Status No Sepsis Action Taken by Nursing No Action Required 06/27/19 19:30 06/27/19 20:13 06/27/19 20:16 Temperature Temperature Source Pulse Rate 74 85 Pulse Rate [Left Finger] 82 Pulse Rate from SpO2 Sensor 74 80 Respiratory Rate 13 22 18 Respiratory Effort / Characteristics Respiratory Depth Respiratory Pattern Blood Pressure 166/85 H 169/76 H Blood Pressure [Right Arm] 169/76 H Blood Pressure Mean 125 117 Blood Pressure Mean [Right Arm] 107 Blood Pressure Position [Right Arm] Sitting Pulse Oximetry 97 100 99 Oxygen Delivery Method Room Air Sepsis Recent Fever Within 48 Hours Sepsis New/Unexplained Change in Mental Status Sepsis Action Taken by Nursing 06/27/19 20:30 06/27/19 21:00 06/27/19 21:30 Temperature Temperature Source Pulse Rate 78 74 80 Pulse Rate [Left Finger] Pulse Rate from SpO2 Sensor 78 74 80 Respiratory Rate 22 20 14 Respiratory Effort / Characteristics Respiratory Depth Respiratory Pattern Blood Pressure 152/104 H 150/91 H 152/86 H Blood Pressure [Right Arm] Blood Pressure Mean 113 117 118 Blood Pressure Mean [Right Arm] Blood Pressure Position [Right Arm] Pulse Oximetry 95 98 98 Oxygen Delivery Method Sepsis Recent Fever Within 48 Hours Sepsis New/Unexplained Change in Mental Status Sepsis Action Taken by Nursing 06/27/19 21:31 Temperature Temperature Source Pulse Rate 84 Pulse Rate [Left Finger] Pulse Rate from SpO2 Sensor 87 Respiratory Rate 17 Respiratory Effort / Characteristics Respiratory Depth Respiratory Pattern Blood Pressure Blood Pressure [Right Arm] Blood Pressure Mean Blood Pressure Mean [Right Arm] Blood Pressure Position [Right Arm] Pulse Oximetry 98 Oxygen Delivery Method Sepsis Recent Fever Within 48 Hours Sepsis New/Unexplained Change in Mental Status Sepsis Action Taken by Nursing GENERAL: Wearing glasses. Occasionally uncomfortable in appearance, well nourished, NAD, non-toxic. EYE EXAM: Normal conjunctiva. PERRL, no anisocoria and EOM's grossly intact w/o pain. OROPHARYNX: Moist mucous membranes. False teeth in place. NECK: Supple, no nuchal rigidity, no adenopathy, non-tender. No signs of meningismus. LUNGS: Clear to auscultation. Normal chest wall mechanics. HEART: NSR, no MRG. ABDOMEN: Ostomy right mid abdomen. Well healed surgical scars present. Abdomen soft, non-tender, no masses, no rebound or guarding. BACK: Right sided lumbar discomfort. No midline pain. Negative straight leg raise bilaterally. SKIN: No rashes and no bruising. UPPER EXTREMITIES: Upper extremities are grossly normal. LOWER EXTREMITIES: No pitting edema. No calf pain. NEURO EXAM: A&O x3, cranial nerves II-XII grossly intact, normal speech, moves all 4 extremities on command w/o issue. No saddle anesthesia. Course Course 183: Past medical records reviewed. The patient was evaluated in room B09. A complete history and physical exam was performed. 2026: I rechecked on the patient, who notes that her pain has slightly improved. 2108: I spoke to the patient who notes that her nausea has improved. She also stated that she does not feel like she can take care of herself at home. 2139: I spoke with Dr. Nguyen, who agreed to take over care of the patient. The patient is agreeable staying in the hospital and understands the treatment plan. The patient will be evaluated for further treatment. 2155: I spoke to Dr. Drake, and the patient will get a gallbladder ultrasound. Based on the presentation, it does not seem like she would need emergency surgery. Administered Medications Potassium Chloride/Sodium Chloride (Normal Saline W/20 Meq Kcl) 20 meq in 1,000 mls @ 100 mls/hr IV .Q10H KELLI Stop: 07/27/19 23:22 Last Admin: 06/28/19 00:10 Dose: 100 mls/hr Documented by: [id number] Ioversol (Optiray 320 100ml) 94 ml IV ONCE PRN PRN Reason: Interaction Checking Stop: 07/01/19 19:55 Last Admin: 06/27/19 19:56 Dose: 94 ml Documented by: [id number] Discontinued Medications Sodium Chloride (Nss 1000ml) 1,000 mls @ 999 mls/hr IV .Q1H1M KELLI Stop: 06/27/19 19:45 Last Infusion: 06/27/19 20:04 Dose: 0 mls/hr Documented by: [id number] Admin: 06/27/19 19:06 Dose: 999 mls/hr Documented by: [id number] Morphine Sulfate (Morphine Sulfate) 4 mg IV NOW STA Stop: 06/27/19 18:41 Last Admin: 06/27/19 19:05 Dose: 4 mg Documented by: [id number] Ondansetron HCl (Zofran) 4 mg IV NOW STA Stop: 06/27/19 20:16 Last Admin: 06/27/19 20:18 Dose: 4 mg Documented by: [id number] Medical Decision Making Differential Diagnosis Differential diagnosis includes: musculoskeletal, disc herniation, fracture, aortic disease, metastatic disease, cord compression, discitis, infection, renal colic, gastrointestinal, acute exacerbation of chronic back pain, sciatica, cauda equina, as well as others were entertained. Medical Records Attestation: I reviewed the patient's medical records. Home Medications Current Medication List: was personally reviewed by me Laboratory Data Attestation: I reviewed the patient's lab results. Result diagrams: 06/27/19 18:57 06/27/19 18:57 Lab Results 06/27/19 06/27/19 06/27/19 Range/Units 18:57 18:57 21:40 WBC 4.95 (4.8-10.8) K/uL RBC 4.09 L (4.2-5.4) M/uL Hgb 12.2 (12.0-16.0) g/dL Hct 36.8 L (37-47) % MCV 90.0 (80-100) fL MCH 29.8 (25-34) pg MCHC 33.2 (32-36) g/dL RDW Std Deviation 43.0 (36.4-46.3) fL RDW Coeff of Spencer 13.1 (11.5-14.5) % Plt Count 205 (130-400) K/uL MPV 10.6 H (7.4-10.4) fL Immature Gran % (Auto) 0.4 % Neut % (Auto) 69.3 % Lymph % (Auto) 18.4 % Hudson % (Auto) 11.1 % Eos % (Auto) 0.6 % Baso % (Auto) 0.2 % Immature Gran # (Auto) 0.02 (0.00-0.02) K/uL Neut # (Auto) 3.43 (1.4-6.5) K/uL Lymph # (Auto) 0.91 L (1.2-3.4) K/uL Hudson # (Auto) 0.55 (0.11-0.59) K/uL Eos # (Auto) 0.03 (0-0.5) K/uL Baso # (Auto) 0.01 (0-0.2) K/uL Sodium 138 (136-145) mmol/L Potassium 4.0 (3.5-5.1) mmol/L Chloride 106 (98-107) mmol/L Carbon Dioxide 28 (21-32) mmol/L Anion Gap 4.0 (3-11) BUN 23 H (7-18) mg/dl Creatinine 0.71 (0.6-1.2) mg/dl Est Cr Clr Drug Dosing 52.3 ml/min Est GFR ( Amer) 88.8 Est GFR (Non-Af Amer) 76.6 BUN/Creatinine Ratio 32.8 H (10-20) Glucose 110 H (70-99) mg/dl Calcium 8.7 (8.5-10.1) mg/dl Magnesium 2.2 (1.8-2.4) mg/dl Total Bilirubin 0.4 (0.2-1) mg/dl AST 15 (15-37) U/L ALT 25 (12-78) U/L Alkaline Phosphatase 74 (45-117) U/L Total Protein 7.3 (6.4-8.2) gm/dl Albumin 3.7 (3.4-5.0) gm/dl Globulin 3.6 (2.5-4.0) gm/dl Albumin/Globulin Ratio 1.0 (0.9-2) TSH 0.628 (0.300-4.500) uIu/ml Urine Color Yellow Urine Appearance Clear (Clear) Urine pH 5.0 (4.5-7.5) Ur Specific Elbe 1.028 (1.000-1.030) Urine Protein Negative (Negative) Urine Glucose (UA) Negative (Negative) Urine Ketones Negative (Negative) Urine Blood Trace H (Negative) Urine Nitrite Negative (Negative) Urine Bilirubin Negative (Negative) Urine Urobilinogen Negative (Negative) Ur Leukocyte Esterase Negative (Negative) Urine WBC (Auto) 1-5 (0-5) /hpf Urine RBC (Auto) 0-4 (0-4) /hpf U Hyaline Cast (Auto) 1-5 (0-5) /lpf U Epithel Cells (Auto) 5-10 H (0-5) /lpf Urine Bacteria (Auto) Negative (Negative) Imaging Data Radiologist's Impression: Radiology results as stated below per my review and the radiologist's interpretation: ABDOMEN AND PELVIS CT WITH IV CONTRAST CT DOSE: 237.51 mGy.cm HISTORY: Acute right-sided back pain. History of lung cancer with spinal metastasis. h/o lung CA w/ spine mets, R sided back pain TECHNIQUE: Multiaxial CT images of the abdomen and pelvis were performed following the IV administration of 94 cc of Optiray 320, A dose lowering technique was utilized adhering to the principles of ALARA. COMPARISON STUDY: CT abdomen and pelvis 05/23/2019 FINDINGS: Mild bibasilar atelectasis. Subpleural 7 mm solid nodule of the left lung base on image 13 series 3 appears new from prior suggestive of a new pleural metastatic lesion. Pulmonary mass of the left midlung redemonstrated on the customer care team coach localizer images. No pneumatosis or pneumoperitoneum identified. The imaged inferior cardiac chambers appear enlarged. Moderate generalized pancreatic atrophy. Unremarkable spleen and adrenal glands. Mild gallbladder wall thickening with multiple large gallstones. There is also mild pericholecystic edema. No choledocholithiasis or significant biliary ductal dilation identified. There are a few subcentimeter hypodense foci of the liver redemonstrated suggestive of cysts measuring up to 6 mm within the left hepatic lobe. No definite evidence of hepatic metastasis. Patency of the hepatic and portal veins. Cortical scarring with parenchymal thinning of the interpolar left kidney. No ureteral calculi. Mild dilation noted within portions of the right ureter. Moderate urinary bladder distention. Uterus appears surgically absent. Extensive mixed plaque of the abdominal aorta without aneurysm. Unremarkable IVC. Multiple postoperative changes of the bowel. Mild nonspecific wall thickening of the distal esophagus with prominent 6 mm paraesophageal lymph node. Moderate fecal retention. There is no bowel obstruction or bowel wall thickening identified. Appendectomy. Postoperative changes of the ventral abdominal wall. Mild nodularity of the omentum within the lateral left midabdomen likely correlates with previously noted vascular structures. Demineralized appearance of the bones. Multilevel degenerative changes of the spine, with additional osteoarthritis of the pelvis and hips. No acute fracture or subluxation. No new metastatic osseous lesions or acute pathologic fractures. IMPRESSION: 1. Cholelithiasis with mild gallbladder wall thickening and trace pericholecystic edema. Correlate with clinical exam findings and laboratory analysis to exclude acute cholecystitis. 2. No acute fracture, subluxation, or new skeletal metastasis identified to correlate with the patient's reported new lower back pain. 3. 7 mm subpleural nodule of the left lower lobe suggests a new pleural metastasis. 4. No bowel obstruction or bowel wall thickening. 5. Additional findings as above. ACT 112: Negative or not required by law. The above report was generated using voice recognition software. It may contain grammatical, syntax or spelling errors. Electronically signed by: Yunior Duran M.D. 06/27/2019 8:35 PM US gallbladder HISTORY: 89 years-old Female CT findings ?pericholecystic fluid cholelithiasis with pericholecystic edema COMPARISON: CT abdomen and pelvis of same day TECHNIQUE: Multiple real-time sonographic images of the abdominal right upper quadrant were obtained assessing grayscale appearance and color flow FINDINGS: Visualized pancreas is unremarkable. Liver is unremarkable without focal hepatic mass lesion. 9 mm left hepatic lobe cyst. Gallbladder wall is thickened measuring up to 4 mm. Shadowing cholelithiasis is noted. No definite pericholecystic fluid. Sonographic Golden sign reported as negative. Common bile duct is normal, 4 mm. Imaged right kidney is unremarkable without hydronephrosis. IMPRESSION: 1. Cholelithiasis with gallbladder wall thickening. Sonographic Golden sign was reported as negative and no definite pericholecystic fluid was identified. Findings could be correlated with nuclear medicine hepatobiliary scan to exclude acute cholecystitis. 2. No biliary ductal dilation. ACT 112: Negative or not required by law. The above report was generated using voice recognition software. It may contain grammatical, syntax or spelling errors. Electronically signed by: Yunior Duran M.D. 06/27/2019 11:09 PM ECG Data Attestation: I personally reviewed and interpreted this ECG as follows: Indication: + back/shoulder pain Rate (beats per minute): 77 Rhythm: + normal sinus ECG Intervals/blocks: + Normal QRS and + Normal QT-c ECG [place]: + Normal ECG Findings: no PACs and no PVCs Comparison ECG Date: from (05/22/19) Change: no significant change Blood Pressure Blood Pressure Findings: Elevated blood pressure Blood Pressure Disposition: further management by hospitalist [place] Narrative The patient is a 89 white female w/ PMHx of intractable back pain who presents to the ED w/ CC of back pain that has been worsening over the past 3 days Patient was seen and evaluated the bedside. The patient did present with concern for back pain. The patient states that she has had chronic intractable back pain for many many years but worsened since Friday. The patient is currently undergoing radiation therapy due to spinal metastases. Patient has no bowel or bladder incontinence has good range of motion and strength of the bilateral lower extremities. No saddle anesthesia. The patient did a bladder complete along with a CT of the pelvis was given medications for pain control. Patient's blood work is unremarkable. Patient's pain was somewhat improved. Patient did have some nausea. Patient CT then pelvis that showed the patient does have cholelithiasis with gallbladder wall thickening. I did reassess the patient the patient has no right upper quadrant pain. The patient does not complain of any abdominal pain but only back pain. I did speak with the on-call hospitalist given the patient's intractable pain and history of metastatic disease. I did speak the on-call surgeon and stated that the patient likely does not require emergent surgery. The patient does not have a white count, no change in liver function testing or lipase. I believe this is reasonable given the patient has no right upper quadrant pain. I did speak with the on-call hospitalist who agreed to further evaluate treat the patient. Patient was admitted to the medicine service. Impression & Plan Back pain, Metastatic cancer to lung Discharge Plan Visit Data *Final* Discharge Date/Time: 06/27/19 23:09 Chief Complaint: Back Injury/Pain Stated Complaint: LUMBAR BACK PAIN ED Provider: Javon Jensen Discharge Problem: Back pain, Metastatic cancer to lung Patient Disposition: Home - Self-Care Discharge Instructions Interventions: ED Discharge Assessment Last Done: 06/27/19 23:09 Discharge Problem: Back pain Qualifiers: Back pain location: back pain in unspecified location Chronicity: chronic Back pain laterality: right Qualified Code(s): M54.9 - Dorsalgia, unspecified Metastatic cancer to lung Qualifiers: Laterality: unspecified laterality Qualified Code(s): C78.00 - Secondary malignant neoplasm of unspecified lung The scribe's documentation has been prepared under my direction and personally reviewed by me in its entirety. I confirm that the note above accurately reflects all work, treatment, procedures, and medical decision making performed by me.
[2019-06-28 05:37] LABS: Basophils # (auto) 0.01 K/uL (0-0.2); Basophils % (auto) 0.3 %; Eosinophils # (auto) 0.05 K/uL (0-0.5); Eosinophils % (auto) 1.3 %; Hematocrit (blood only) 34.2 % (37-47); Hemoglobin 11.1 g/dL (12.0-16.0); Immature Granulocytes # (auto) 0.01 K/uL (0.00-0.02); Immature Granulocytes % (auto) 0.3 %; Lymphocytes # (auto) 1.07 K/uL (1.2-3.4); Mean Corpuscular Hemoglobin 29.6 pg (25-34); Mean Corpuscular Hgb Conc 32.5 g/dL (32-36); Mean Corpuscular Volume 91.2 fL (80-100); Mean Platelet Volume 10.5 fL (7.4-10.4); Monocytes # (auto) 0.54 K/uL (0.11-0.59); Monocytes % (auto) 13.6 %; Neutrophils # (auto) 2.29 K/uL (1.4-6.5); Neutrophils % (auto) 57.5 %; Platelet Count 207 K/uL (130-400); RDW Coefficient of Variation 13.4 % (11.5-14.5); RDW Standard Deviation 44.4 fL (36.4-46.3); Red Blood Count 3.75 M/uL (4.2-5.4); White Blood Count 3.97 K/uL (4.8-10.8)
[2019-06-28 06:08] LABS: Albumin Level 2.9 gm/dl (3.4-5.0); BUN Creatinine Ratio 25.1 (10-20); Calcium 8.1 mg/dl (8.5-10.1); Est GFR (Non-African American) 80.2; Potassium 4.2 mmol/L (3.5-5.1)
[2019-06-28 06:13] LABS: Albumin Globulin Ratio 0.9 (0.9-2); Bilirubin,Total 0.3 mg/dl (0.2-1); Globulin 3.1 gm/dl (2.5-4.0)
[2019-06-28] MEDS ORDERED: DICLOFENAC SOD 1% GEL 100 GM TUBE EXT PRN (09:00)
[2019-06-28] MEDS ORDERED: cefTRIAXone SODIUM 1,000 MG in DEXTROSE 5% 50 ML IV SCH (09:00)
[2019-06-28] MEDS ORDERED: NON-FORMULARY MEDICATION (Biotin 5 MG) PO SCH (09:00)
[2019-06-28] MEDS ORDERED: SINCALIDE 1.2 MCG in 0.9 % SODIUM CHLORIDE 100 ML IV SCH (10:30)
--- NOTE | 2019-06-28 10:50 | Hospitalist Progress Note ---
Date of Service June 28, 2019 Assessment & Plan (1) Back pain: * Initially thought to be secondary from gallbladder, however all imaging negative for acute cholecystitis * Currently undergoing palliative radiation with Dr. Hinton -- had received total of 5 treatments, additional 5 to be done this week * Palliative consult * Dilaudid 0.5 mg IV every 3 hours as needed severe pain. * Morphine 15mg PO x 2 this afternoon for uncontrolled pain, then Q4h prn * Added methadone 2.5mg QAM after conversation with palliative. Added Decadron 4mg IV QAM (2) Acute cholecystitis: * Initially admitted with concern for acute cholecystitis, as patient was having right sided abdominal pain * CT scan, ultrasound and clinical examination most suggestive of acute cholecystitis. however, had previously been worked up in May with negative HIDA. * Repeat HIDA scan negative for acute cholecystitis. * Placed on ceftriaxone 1 g IV daily -- could be discontinued, as imaging negative, patient afebrile without WBC * Car Washer consult (3) Metastatic cancer to lung: * And thoracic spine mets to T8 -- likely origin of pain * See above -- previously discovered last admission, May 2019 * Biopsy performed with metastatic adenocarcinoma, favoring breast origin * Patient to have appointment with general surgery for possible port placement next week, however it appears patient may not want to pursue this currently. 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 Dowling. 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 S/p L mastectomy, but refused adjuvant radiation or chemotherapy due to concerns for toxicity. * Follows with Dr. 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 Follows with Dr. Hawk as outpatient -- patient managed with vitamins as outpatient. Voltaren, tylenol as needed while inpatient. 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 She states she has peripheral neuropathy secondary to this and has been taking vitamins, follows with Dr. Kenn. (8) Asthma: * Per patient. As zariflukast non-formulary, patient had not been receiving -- patient without s/sx exacerbation during admission. Resumed at discharge. (9) DVT prophylaxis: * SCDs, Heparin SQ Supervising Physician Co-Signing Physician Notes PA Supervision Note: I did not personally see or examine the patient today, but I verified all amado points of JENNIFER Cook's assessment and plan with the following exceptions/additions: None Subjective Patient seen in Nuclear Medicine this morning to discuss need for HIDA scan, given previously imaged a month ago. Patient agreeable. Mild/moderate right sided pain as well as back pain. Discussed that I will call radiation oncology to let them know about her hospitalization and that they may still be able to do while she is inpatient. She states she had [address] Hinton so far, and she is scheduled to have another five this week. She states she is supposed to see Dr. Drake next week about a possible port placement, but she is unsure is that is something she really wants to consider. Upon re-entry in the afternoon with Palliative care at bedside, patient increasingly painful of the thoracic spine, with inability to get in comfortable position. Pain not relieved with previously administered 15mg morphine PO. Previously had been controlled as outpatient with 1-2 oxycodone, but had been requiring 3 oxycodone to get better control. She was then switched to 15mg PO morphine at that time. Ordered additional 15mg PO morphine as well as IV Decadron. Will initiate methadone in AM for better pain control. Review of Systems Review of Systems: All systems reviewed & are unremarkable except as noted in HPI & below Physical Exam Constitutional: WD/WN, vitals as above + uncomfortable Eyes: + anicteric sclerae and PERRL Neck: trachea midline, no thyromegaly Respiratory: normal respiratory effort, lungs clear to auscultation Cardiovascular: RRR, no murmur, no edema Gastrointestinal (Abdomen): normal bowel sounds, soft, nontender, no hepatosplenomegaly ostomy present Musculoskeletal: thoracic spine tender to palpation tenderness of left sided ribs to palpation Neurologic: PERRL, EOMI, accommodation nl, no face palsy, no dysarthria Psychiatric: A+Ox3, euthymic affect Lymphatic: no cervical or axillary lymphadenopathy Results & Data Vital Signs (Past 12 Hours) Vital Signs Temp Pulse Resp BP Pulse Ox 06/28/19 07:40 36.2 C L 73 16 146/78 H 92 06/27/19 23:15 36.8 C 84 12 155/76 H 97 Laboratory Results 06/28/19 06/28/19 06/27/19 Range/Units 04:53 04:53 23:34 WBC 3.97 L (4.8-10.8) K/uL RBC 3.75 L (4.2-5.4) M/uL Hgb 11.1 L (12.0-16.0) g/dL Hct 34.2 L (37-47) % MCV 91.2 (80-100) fL MCH 29.6 (25-34) pg MCHC 32.5 (32-36) g/dL RDW Std Deviation 44.4 (36.4-46.3) fL RDW Coeff of [place] 13.4 (11.5-14.5) % Plt Count 207 (130-400) K/uL MPV 10.5 H (7.4-10.4) fL Immature Gran % (Auto) 0.3 % Neut % (Auto) 57.5 % Lymph % (Auto) 27.0 % [place] % (Auto) 13.6 % Eos % (Auto) 1.3 % Baso % (Auto) 0.3 % Immature Gran # (Auto) 0.01 (0.00-0.02) K/uL Neut # (Auto) 2.29 (1.4-6.5) K/uL Lymph # (Auto) 1.07 L (1.2-3.4) K/uL [place] # (Auto) 0.54 (0.11-0.59) K/uL Eos # (Auto) 0.05 (0-0.5) K/uL Baso # (Auto) 0.01 (0-0.2) K/uL Sodium 140 (136-145) mmol/L Potassium 4.2 (3.5-5.1) mmol/L Chloride 110 H (98-107) mmol/L Carbon Dioxide 26 (21-32) mmol/L Anion Gap 4.0 (3-11) BUN 16 (7-18) mg/dl Creatinine 0.64 (0.6-1.2) mg/dl Est Cr Clr Drug Dosing 58.0 ml/min Est GFR ( Amer) 93.0 Est GFR (Non-Af Amer) 80.2 BUN/Creatinine Ratio 25.1 H (10-20) Glucose 89 (70-99) mg/dl Calcium 8.1 L (8.5-10.1) mg/dl Magnesium 2.1 (1.8-2.4) mg/dl Total Bilirubin 0.3 (0.2-1) mg/dl AST 11 L (15-37) U/L ALT 20 (12-78) U/L Alkaline Phosphatase 61 (45-117) U/L Total Protein 6.0 L (6.4-8.2) gm/dl Albumin 2.9 L (3.4-5.0) gm/dl Globulin 3.1 (2.5-4.0) gm/dl Albumin/Globulin Ratio 0.9 (0.9-2) TSH (0.300-4.500) uIu/ml Urine Color Urine Appearance (Clear) Urine pH (4.5-7.5) Ur Specific [place] (1.000-1.030) Urine Protein (Negative) Urine Glucose (UA) (Negative) Urine Ketones (Negative) Urine Blood (Negative) Urine Nitrite (Negative) Urine Bilirubin (Negative) Urine Urobilinogen (Negative) Ur Leukocyte Esterase (Negative) Urine WBC (Auto) (0-5) /hpf Urine RBC (Auto) (0-4) /hpf U Hyaline Cast (Auto) (0-5) /lpf U Epithel Cells (Auto) (0-5) /lpf Urine Bacteria (Auto) (Negative) 06/27/19 06/27/19 06/27/19 Range/Units 21:40 18:57 18:57 WBC 4.95 (4.8-10.8) K/uL RBC 4.09 L (4.2-5.4) M/uL Hgb 12.2 (12.0-16.0) g/dL Hct 36.8 L (37-47) % MCV 90.0 (80-100) fL MCH 29.8 (25-34) pg MCHC 33.2 (32-36) g/dL RDW Std Deviation 43.0 (36.4-46.3) fL RDW Coeff of [place] 13.1 (11.5-14.5) % Plt Count 205 (130-400) K/uL MPV 10.6 H (7.4-10.4) fL Immature Gran % (Auto) 0.4 % Neut % (Auto) 69.3 % Lymph % (Auto) 18.4 % [place] % (Auto) 11.1 % Eos % (Auto) 0.6 % Baso % (Auto) 0.2 % Immature Gran # (Auto) 0.02 (0.00-0.02) K/uL Neut # (Auto) 3.43 (1.4-6.5) K/uL Lymph # (Auto) 0.91 L (1.2-3.4) K/uL [place] # (Auto) 0.55 (0.11-0.59) K/uL Eos # (Auto) 0.03 (0-0.5) K/uL Baso # (Auto) 0.01 (0-0.2) K/uL Sodium 138 (136-145) mmol/L Potassium 4.0 (3.5-5.1) mmol/L Chloride 106 (98-107) mmol/L Carbon Dioxide 28 (21-32) mmol/L Anion Gap 4.0 (3-11) BUN 23 H (7-18) mg/dl Creatinine 0.71 (0.6-1.2) mg/dl Est Cr Clr Drug Dosing 52.3 ml/min Est GFR ( Amer) 88.8 Est GFR (Non-Af Amer) 76.6 BUN/Creatinine Ratio 32.8 H (10-20) Glucose 110 H (70-99) mg/dl Calcium 8.7 (8.5-10.1) mg/dl Magnesium 2.2 (1.8-2.4) mg/dl Total Bilirubin 0.4 (0.2-1) mg/dl AST 15 (15-37) U/L ALT 25 (12-78) U/L Alkaline Phosphatase 74 (45-117) U/L Total Protein 7.3 (6.4-8.2) gm/dl Albumin 3.7 (3.4-5.0) gm/dl Globulin 3.6 (2.5-4.0) gm/dl Albumin/Globulin Ratio 1.0 (0.9-2) TSH 0.628 (0.300-4.500) uIu/ml Urine Color Yellow Urine Appearance Clear (Clear) Urine pH 5.0 (4.5-7.5) Ur Specific [place] 1.028 (1.000-1.030) Urine Protein Negative (Negative) Urine Glucose (UA) Negative (Negative) Urine Ketones Negative (Negative) Urine Blood Trace H (Negative) Urine Nitrite Negative (Negative) Urine Bilirubin Negative (Negative) Urine Urobilinogen Negative (Negative) Ur Leukocyte Esterase Negative (Negative) Urine WBC (Auto) 1-5 (0-5) /hpf Urine RBC (Auto) 0-4 (0-4) /hpf U Hyaline Cast (Auto) 1-5 (0-5) /lpf U Epithel Cells (Auto) 5-10 H (0-5) /lpf Urine Bacteria (Auto) Negative (Negative) PG Care Time/CCT Total # of Minutes Spent Total Time Spent with Patient: Total time spent is greater than 50% in coordination of care (as documented) at patient's floor/unit and/or counseling patient: Coding Level of Care Code 59108 Subseq Hosp Care Lvl 3 Diagnoses Back pain M54.9; G89.29 Back pain laterality: right Back pain location: back pain in unspecified location Chronicity: chronic Acute cholecystitis K81.0 Metastatic cancer to lung C78.00 Laterality: unspecified laterality Malignant neoplasm of upper-inner quadrant of left breast in female, estrogen receptor negative C50.212; Z17.1 Peripheral neuropathy G62.9 Cancer related pain G89.3 Desmoid tumor D48.1 Asthma J45.909 DVT prophylaxis Z29.9 (1) Metastatic cancer to lung Laterality: unspecified laterality Qualified Code(s): C78.00 - Secondary malignant neoplasm of unspecified lung (2) Back pain Back pain laterality: right Back pain location: back pain in unspecified location Chronicity: chronic Qualified Code(s): M54.9 - Dorsalgia, unspecified; G89.29 - Other chronic pain
--- NOTE | 2019-06-28 11:50 | Nuclear Medicine Report ---
NM hepatobiliary EF CLINICAL HISTORY: Abdominal pain with abnormal ultrasound and CT. COMPARISON STUDY: Ultrasound study dated 06/27/2019, CT scan dated 06/27/2019 FINDINGS: The patient was injected with 5.3 mCi of technetium 99 M Choletec. Sequential anterior imag ing was performed. Hepatic excretion appeared unremarkable. The gallbladder was first visualized on t he 35 minute image. At 1 hour, the patient was a balancing machine set up worker 1.2 mcg sincalide utilizing a 30 minute inf usion. There was normal passage of activity into small bowel. The gallbladder ejection fraction was n ormal measuring 88%. IMPRESSION: 1. Normal study. No evidence of cystic duct obstruction. Normal gallbladder ejection fraction of 88% ACT 112: Negative or not required by law. Electronically signed by: Galo Guzman M.D. 06/28/2019 11:49 AM
[2019-06-28] MEDS: HEPARIN SOD 5,000 UNIT/0.5 ML VIAL SQ SCH ×2 (12:02→21:22)
[2019-06-28] MEDS ORDERED: Nursing to Pharmacy Communication ONE (12:41)
[2019-06-28] MEDS ORDERED: MoRPHine SULFATE 10 MG/ML CARP/VIAL IV STA (13:47)
[2019-06-28] MEDS ORDERED: MoRPHine SULFATE CR 15 MG TABCR PO STA (14:15)
[2019-06-28] MEDS ORDERED: MoRPHine SULFATE CR 15 MG TABCR PO ONE (14:17)
[2019-06-28] MEDS: dexAMETHasone 4 MG in SYRINGE 0 ML IV SCH (14:19)
--- NOTE | 2019-06-28 15:01 | Palliative Care Consultation ---
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 Patient is status post left mastectomy and chemo. 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 Patient is followed by Dr. Dowling and was last seen in his office on 06/16. At that time plan was to have a port placed for possible continued chemo. Patient admitted on 06/27 for intractable back pain of 3 days duration. Patient has had similar episodes in the past and been hospitalized. Patient reports she required taking 3 oxycodone at 5 mg each to help with the pain-this caused increase dizziness and nausea. Patient has been receiving XRT to the spinal lesion-she has received 5 out of 10 planned sessions. Patient had evaluation for possible cholecystitis-nature and location of pain unlikely due to gallbladder. Patient initially seen alone,Dayna Cook PA-C from attending team was present during part of visit. Discussion regarding goals of care limited due to to patient's severe discomfort. Discussed with Dayna Cook, giving a second dose of 15 mg of morphine as well as starting Decadron for her pain. Patient describes the pain as stabbing, did not report that it radiated, pain is currently constant, interfering with patient's ability to get comfortable in either a sitting or lying position, located in mid thoracic area. Patient already received a PRN morphine and a PRN IV Dilaudid this afternoon with little effect. Patient states she has been tried on Lidoderm patches. Patient states she could probably control the pain if she was able to tolerate her opioid medications-she reports they cause severe dizziness and nausea. 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 Patient is alert and oriented, mentally quite sharp. Was able to tell me that she would want her adopted daughter, Lisette, to be her medical power of deputy commonwealth's attorney if needed. She states her biological daughter has severe schizophrenia and would not want her making decisions for her. Patient also reported that she did not want to continue with chemo nor did she want the port placed. We will continue conversations once patient's pain is better controlled. - Discussed with attending provider giving patient an additional now dose of morphine at 15 mg, starting Decadron at 4 mg daily, and will start a very low dose of methadone at 2.5 mg daily-first dose to be given tomorrow morning with close observation of patient. Use of methadone in this age group requires caution. (2) Cancer related pain: Patient with known T8 spinal lesion-receiving XRT-completed 5 of 10 planned sessions. -Would recommend starting Decadron 4 mg daily, continue PRN morphine -We will start methadone 2.5 mg daily with close observation while patient is inpatient. May be able to control her pain with opioid therapy with less side effects as far as nausea and drowsiness. -Methadone also effective for neuropathic pain as patient was unable to tolerate gabapentin. -If patient is to be continued on Decadron for any length of time, would add GI prophylaxis. (3) Back pain: Patient points to location-approximately an area of T8 known skeletal lesion-patient to complete course of XRT Back pain laterality: right Back pain location: back pain in unspecified location Chronicity: chronic Qualified Code(s): M54.9 - Dorsalgia, unspecified; G89.29 - Other chronic pain (4) Malignant neoplasm of upper-inner quadrant of left breast in female, estrogen receptor negative: Patient with skeletal lesion as well as 2 lung lesions-biopsy of lung lesion positive for triple negative breast cancer. -Patient states she does not want any further chemo nor is interested in having a port placed. 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 Patient is status post left mastectomy and chemo. 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 Patient is followed by Dr. Dowling and was last seen in his office on 06/16. At that time plan was to have a port placed for possible continued chemo. Patient admitted on 06/27 for intractable back pain of 3 days duration. Patient has had similar episodes in the past and been hospitalized. Patient reports she required taking 3 oxycodone at 5 mg each to help with the pain-this caused increase dizziness and nausea. Patient has been receiving XRT to the spinal lesion-she has received 5 out of 10 planned sessions. Patient had evaluation for possible cholecystitis-nature and location of pain unlikely due to gallbladder. Patient initially seen alone,Dayna Cook PA-C from attending team was present during part of visit. Discussion regarding goals of care limited due to to patient's severe discomfort. Discussed with Dayna Cook, giving a second dose of 15 mg of morphine as well as starting Decadron for her pain. Patient describes the pain as stabbing, did not report that it radiated, pain is currently constant, interfering with patient's ability to get comfortable in either a sitting or lying position, located in mid thoracic area. Patient already received a PRN morphine and a PRN IV Dilaudid this afternoon with little effect. Patient states she has been tried on Lidoderm patches. Patient states she could probably control the pain if she was able to tolerate her opioid medications-she reports they cause severe dizziness and nausea. 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 Patient is alert and oriented, mentally quite sharp. Was able to tell me that she would want her adopted daughter, Lisette, to be her medical power of deputy commonwealth's attorney if needed. She states her biological daughter has severe schizophrenia and would not want her making decisions for her. Patient also reported that she did not want to continue with chemo nor did she want the port placed. We will continue conversations once patient's pain is better controlled. Discussed with attending provider giving patient an additional now dose of morphine at 15 mg, starting Decadron at 4 mg daily, and will start a very low dose of methadone at 2.5 mg daily-first dose to be given tomorrow morning with close observation of patient. Use of methadone in this age group requires caution. Allergies Allergy/AdvReac Type Severity Reaction Status Date / Time erythromycin base Allergy Severe RASH Verified 06/27/19 18:50 meperidine Allergy Severe Dizziness Verified 06/27/19 18:50 and "itchiness" all over adhesive Allergy Mild RASH Verified 06/27/19 18:50 metaproterenol Allergy Mild RASH Verified 06/27/19 18:50 metronidazole Allergy Mild REDNESS Verified 06/27/19 18:50 povidone-iodine Allergy Mild RASH Verified 06/27/19 18:50 zinc oxide Allergy Mild RASH Verified 06/27/19 18:50 theophylline Allergy Unknown FROM Verified 06/27/19 18:50 UNCODED ALL. diphenhydramine AdvReac Severe SEVERE Verified 06/27/19 18:50 SWEATING AND ITCHING nitroglycerin AdvReac Severe HYPOTENSION Verified 06/27/19 18:50 AND PT PASSES OUT, WAS BROUGHT TO ER. guaifenesin AdvReac Intermediate FROM Verified 06/27/19 18:50 VICODIN COUGH SYRUP-VERTIGO,HYPERALERTNESS lorazepam AdvReac Intermediate oversedation,fecal Verified 06/27/19 18:50 incontinence tramadol AdvReac Intermediate LOW BP Verified 06/27/19 18:50 hydrocodone AdvReac Unknown "VICODIN Verified 06/27/19 18:50 COUGH MED",MORPHINE AND LORTAB OK Home Medications Home Medications Medication Instructions Recorded Confirmed Type zafirlukast 20 mg tablet See Rx Instructions .ROUTE 01/22/19 06/27/19 Rx .COMPLEX #60 tablet zoledronic qvjf-qggrczok-wqmdi 5 5 mg IV YEARLY #100 ml 01/22/19 06/27/19 Rx mg/100 mL in mannitol 5 %-water intravenous piggybck cranberry conc-ascorbic acid 1 cap PO DAILY 01/26/19 06/27/19 History loratadine 10 mg tablet 10 mg PO DAILY PRN tab 01/26/19 06/27/19 History vitamin B complex 1 cap PO DAILY 01/26/19 06/27/19 History acetaminophen 500 mg capsule 500 mg PO BID cap 02/18/19 06/27/19 History biotin 5 mg capsule 5 mg PO QAM 02/18/19 06/27/19 History coenzyme Q10 10 mg capsule 10 mg PO DAILY cap 02/18/19 06/27/19 History minocycline 50 mg capsule 50 mg PO QAM 02/18/19 06/27/19 History Centrum 15 ml PO QAM 05/21/19 06/27/19 History diclofenac sodium 4 gm TOP UD 05/21/19 06/27/19 History ergocalciferol (vitamin D2) 50,000 units PO 2XWK 05/21/19 06/27/19 History calcium carbonate 500 1 ea PO BIDM 06/17/19 06/27/19 History mg(1,250mg)-vitamin D3 200 unit oral powder pack morphine 15 mg immediate release 15 mg PO .q4-6h PRN tab 06/21/19 06/27/19 History tablet morphine 10 mg/5 mL oral solution 10 mg PO ONCE PRN ml 06/22/19 06/27/19 History oxycodone 5 - 10 mg PO ONCE PRN 06/27/19 06/27/19 History Patient History Medical History Asthma (Inactive 02/02/13) Breast cancer (Inactive) "Breast cancer, left breast, invasive ductal carcinoma, grade 3, ER/[place]/Her2- 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, pT2N0, stage IIA";Biopsy done 10/28/14 Breast cancer of upper-inner quadrant of left female breast Cholelithiasis 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; Fibromyalgia (Inactive 02/02/13) Hearing loss (Inactive) Hepatitis Intractable back pain (Inactive) Kidney stone (Inactive) Lesion of vertebra T8 lesion Low back pain (Inactive) Mass of left lung FNA 05/25/19 metastatic - breast as primary Osteoarthritis (Inactive) Osteopenia (Inactive) Peripheral neuropathy (Inactive) Rosacea (Inactive 02/02/13) Sclerosing mesenteritis Short bowel syndrome (Inactive) Vitamin B deficiency (Inactive) Vitamin D deficiency (Inactive) Surgical History H/O adenoidectomy H/O: hysterectomy History of cataract surgery History of mastectomy (Inactive) Left mastectomy with SLN biopsy on 10/28/14 Hx of tonsillectomy S/P small bowel resection Removed 2 feet of intestine due to small bowel obstructions;found a mass - desmoid tumor Status post left foot surgery Splastic implant in left great toe; Surgically created abdominal mucous fistula Family History Father , 80yo Acute myocardial infarction History of heart valve replacement Congestive heart failure Mother , 79yo Stroke syndrome Cardiomegaly Sister Dementia Carotid artery disease Son Spinal stenosis Daughter Schizophrenia OCD (obsessive compulsive disorder) Other Family history non-contributory Social History Preferred Language: [place] Communication Ability: Effective Visual Impairment: No Limitations Hearing Ability: Normal Data Operations Director Required: No Beliefs That Will Affect Care: None marital status: / Current Living Situation: Alone Current Living Situation Comment: Lives in apartment. 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 Physical Exam Physical Exam: PE: Patient in moderate to severe distress due to stabbing unrelenting back pain HEENT: EOMI, [place]-hearing aids in place Respirations: Clear breath sounds bilaterally CV: Regular rate, no edema Abdomen: Not distended Extremities: Full range of motion Spine: Difficult to assess for muscle spasm as patient exquisitely tender to touch over mid thoracic spinous processes Neuro: Alert and oriented x4 Results & Data Vital Signs (Past 12 Hours) Vital Signs Temp Pulse Resp BP Pulse Ox 06/28/19 07:40 97.2 F L 73 16 146/78 H 92 PG Care Time/CCT Total # of Minutes Spent Total Time Spent with Patient: Total time spent 70 minutes with greater than 50% of time spent at bedside and in coordination of care with patient's attending team Coding Level of Care Code 79539 Inpt Consult Level 3 Diagnoses Palliative care encounter Z51.5 Cancer related pain G89.3 Back pain M54.9; G89.29 Back pain laterality: right Back pain location: back pain in unspecified location Chronicity: chronic Malignant neoplasm of upper-inner quadrant of left breast in female, estrogen receptor negative C50.212; Z17.1 Mass of left lung R91.8 Time Spent (min) 70
--- NOTE | 2019-06-28 19:53 | Electrocardiogram Report ---
Test Reason : Blood Pressure : / mmHG Vent. Rate : 077 BPM Atrial Rate : 077 BPM P-R Int : 192 ms QRS Dur : 090 ms QT Int : 396 ms P-R-T Axes : 069 034 050 degrees QTc Int : 448 ms Normal sinus rhythm Possible Left atrial enlargement Incomplete right bundle branch block Cannot rule out Anterior infarct , age undetermined Abnormal ECG When compared with ECG of 22-MAY-2019 19:22, No significant change was found Confirmed by Casper Ma ([id number]) on 06/28/2019 7:53:09 PM Referred By: REFERRED SELF Confirmed By:Kodi Ma
[2019-06-28] MEDS ORDERED: POLYETHYLENE (MIRALAX) 17 GM PACK PO PRN (20:34)
[2019-06-29 05:04] LABS: Hematocrit (blood only) 33.5 % (37-47); Immature Granulocytes # (auto) 0.01 K/uL (0.00-0.02); Immature Granulocytes % (auto) 0.4 %; Lymphocytes # (auto) 0.51 K/uL (1.2-3.4); Mean Corpuscular Hgb Conc 32.8 g/dL (32-36); Mean Corpuscular Volume 91.3 fL (80-100); Mean Platelet Volume 10.5 fL (7.4-10.4); Monocytes # (auto) 0.19 K/uL (0.11-0.59); Monocytes % (auto) 6.7 %; Neutrophils # (auto) 2.13 K/uL (1.4-6.5); Neutrophils % (auto) 74.9 %; Platelet Count 186 K/uL (130-400); RDW Coefficient of Variation 13.4 % (11.5-14.5); RDW Standard Deviation 44.8 fL (36.4-46.3); Red Blood Count 3.67 M/uL (4.2-5.4); White Blood Count 2.84 K/uL (4.8-10.8)
[2019-06-29] MEDS: NSS + 20MEQ KCL 20 MEQ/1,000 ML BAG IV SCH (05:05)
[2019-06-29 05:25] LABS: Albumin Level 2.9 gm/dl (3.4-5.0); BUN Creatinine Ratio 25.5 (10-20); Calcium 8.1 mg/dl (8.5-10.1); Creatinine Clr Calc Pharmacy 47.6 ml/min; Est GFR (African American) 79.2; Est GFR (Non-African American) 68.4; Potassium 4.7 mmol/L (3.5-5.1)
[2019-06-29 05:27] LABS: Albumin Globulin Ratio 0.9 (0.9-2); Bilirubin,Total 0.3 mg/dl (0.2-1); Globulin 3.2 gm/dl (2.5-4.0); Total Protein 6.1 gm/dl (6.4-8.2)
[2019-06-29] MEDS: dexAMETHasone 4 MG in SYRINGE 0 ML IV SCH (08:49)
[2019-06-29] MEDS: ZAFIRLUKAST 20 MG PO SCH (08:51)
[2019-06-29] MEDS: HEPARIN SOD 5,000 UNIT/0.5 ML VIAL SQ SCH ×2 (08:51→20:32)
[2019-06-29] MEDS: MINOCYCLINE HCL 50 MG PO SCH (08:52)
[2019-06-29] MEDS ORDERED: METHADONE HCL 5 MG TAB PO SCH (09:00)
[2019-06-29] MEDS ORDERED: METHADONE ORAL SOLN 2 MG/ML PO SCH (09:00)
[2019-06-29] MEDS ORDERED: POLYETHYLENE (MIRALAX) 17 GM PACK PO PRN (13:11)
--- NOTE | 2019-06-29 16:31 | Discharge Summary ---
Date of Service June 30, 2019 Admission HPI Per Admitting Provider The patient is a old female past medical history including metastatic breast cancer, presently undergoing chemotherapy, who has had pain medications adjusted to Help control pain. She reports that 3 days ago she developed pain in her right mid back area, that was not where her cancer was. Work-up in emergency department included CT scan of abdomen pelvis, which suggested acute cholecystitis as the possible cause of her new pain. Admission Exam Per Admitting Provider The patient is awake, alert and oriented 3, normocephalic and atraumatic, lying in bed and in mild to moderate distress due to pain. HEENT--PERRL, EOMI, mucous membranes and oropharynx dry. Neck--supple. No JVD. No bruits. Thyroid normal, trachea midline, no adenopat hy. Heart--normal S1 and S2. No murmurs, rubs or gallops. Lungs--clear bilaterally, no respiratory distress, no accessory muscle use. Abdomen--normal bowel sounds and soft. Nontender. Nondistended. Reproducible pain over right back area radiating around from right upper quadrant Extremities--no cyanosis or clubbing. No edema. Dermatologic--normal skin turgor, normal color, no abnormal lymph nodes, no rash. Neurologic--cranial nerves II through XII grossly intact. Rheumatologic--normal range of motion. Psychiatric--normal affect. Principal Diagnosis Intractable back Pain Discharge Exam Constitutional WD/WN, vitals as above Eyes + anicteric sclerae and PERRL Neck trachea midline, no thyromegaly Respiratory normal respiratory effort, lungs clear to auscultation Cardiovascular RRR, no murmur, no edema Chest (Breasts) Additional Comments: L mastectomy scar Gastrointestinal (Abdomen) normal bowel sounds, soft, nontender, no hepatosplenomegaly ostomy present, mucus discharge present Musculoskeletal no cyanosis or clubbing, extremities motor strength 5/5 Skin mild erythema of thoracic/lumbar spine Neurologic PERRL, EOMI, accommodation nl, no face palsy, no dysarthria Psychiatric A+Ox3, euthymic affect Lymphatic no cervical or axillary lymphadenopathy Discharge Data Allergies Allergy/AdvReac Type Severity Reaction Status Date / Time erythromycin base Allergy Severe RASH Verified 06/27/19 18:50 meperidine Allergy Severe Dizziness Verified 06/27/19 18:50 and "itchiness" all over adhesive Allergy Mild RASH Verified 06/27/19 18:50 metaproterenol Allergy Mild RASH Verified 06/27/19 18:50 metronidazole Allergy Mild REDNESS Verified 06/27/19 18:50 povidone-iodine Allergy Mild RASH Verified 06/27/19 18:50 zinc oxide Allergy Mild RASH Verified 06/27/19 18:50 theophylline Allergy Unknown FROM Verified 06/27/19 18:50 UNCODED ALL. diphenhydramine AdvReac Severe SEVERE Verified 06/27/19 18:50 SWEATING AND ITCHING nitroglycerin AdvReac Severe HYPOTENSION Verified 06/27/19 18:50 AND PT PASSES OUT, WAS BROUGHT TO ER. guaifenesin AdvReac Intermediate FROM Verified 06/27/19 18:50 VICODIN COUGH SYRUP-VERTIGO,HYPERALERTNESS lorazepam AdvReac Intermediate oversedation,fecal Verified 06/27/19 18:50 incontinence tramadol AdvReac Intermediate LOW BP Verified 06/27/19 18:50 hydrocodone AdvReac Unknown "VICODIN Verified 06/27/19 18:50 COUGH MED",MORPHINE AND LORTAB OK Consultations 06/27/19 21:50 ED Decision to Admit Stat 06/27/19 23:23 Consult Case Management - Discharge Planning Routine 06/28/19 12:33 Consult Palliative Care Routine Ordered Studies 06/27/19 18:42 CT abd pelvis IV con only Stat 06/27/19 21:58 US gallbladder Stat 06/28 [facility] Course (1) Back pain: * Initially thought to be secondary from gallbladder, however all imaging negative for acute cholecystitis similar to last month's admission * Currently undergoing palliative radiation with Dr. Hinton -- had received total of 5 treatments, additional 5 to be done this week through Friday (patient received two treatments while inpatient on Friday and Friday, but missed on Friday06/28/19) * Palliative consult during admission. * Morphine 15mg PO x 2 afternoon of 06/28 for uncontrolled pain, then Q4h prn * Added methadone 2.5mg QAM and Decadron 4mg IV QAM --> patient refused morning medications. Would like to continue using morphine. Per discussion with palliative care, not a good candidate at this time for methadone given pain is intermittent. Rec morphine 15-30mg prn. she may require periodic admission for prolonged episodes of severe pain. Discharged home on morphine 15mg PO. Set up with [facility] hospice (2) Acute cholecystitis: * Initially admitted with concern for acute cholecystitis, as patient was having right sided abdominal pain * CT scan, ultrasound and clinical examination most suggestive of acute cholecystitis on admission, per admitting provider. however, had previously been worked up in May with negative HIDA. * Repeat HIDA scan negative for acute cholecystitis. * Placed on ceftriaxone 1 g IV daily but discontinued as imaging negative, patient afebrile without WBC * Preschool Assistant consult (3) Metastatic cancer to lung: * And thoracic spine mets to T8 -- likely origin of pain * See above -- previously discovered last admission, May 2019 * Biopsy performed with metastatic adenocarcinoma, favoring breast origin * Patient to have appointment with general surgery for possible port placement next week, however it appeared patient may not want to pursue this nursing home but requested follow up appointment to be changed to the week of Jul 12, as her last round of XRT to be completed on friday07/05/19 (4) Malignant neoplasm of upper-inner quadrant of left breast in female, estrogen receptor negative: * Patient follows with Dr. Dowling. 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 S/p L mastectomy, but refused adjuvant radiation or chemotherapy due to concerns for toxicity. * Follows with Dr. 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 She states she has peripheral neuropathy secondary to this and has been taking vitamins, follows with Dr. Hawk. (7) Peripheral neuropathy: * Secondary to short bowel syndrome. Follows with Dr. Hawk as outpatient -- patient managed with vitamins as outpatient. Voltaren, tylenol as needed while inpatient. (8) Asthma: * Per patient. As zariflukast non-formulary, patient had not been receiving -- patient without s/sx exacerbation during admission. Resumed at discharge. (9) DVT prophylaxis: * SCDs, Heparin SQ while inpatient Got two rounds of XRT while inpatient. Five treatments last week. Additional 3 rounds remain. Follow up with Dr. Hinton, PCP as outpatient. Discharged home with aide [facility]. Haroon from [facility] hospice saw patient prior to discharge and there will be someone to meet her tonight when she is home to further evaluate. Per discussion with patient prior to discharge, she WOULD NOT LIKE CPR, MECHANICAL INTUBATION OR ARTIFICIAL FEEDING. Level 5 Total Time Total Time Spent Total Time Spent (In Minutes): 90 Discharge Plan Discharge Items Patient Disposition: Home - Self-Care Reason For Visit: CHOLECYSTITIS, MET BREAST CA Discharge Diagnosis: Intractable Pain due to metastatic breast cancer Goals: You have been hospitalized for an acute medical problem. During your stay at [facility], we have made an effort to correct the problem that brought you to the hospital while keeping you as comfortable as possible. Medications were used to bring your condition under control and your discharge instructions will include directions for any medications you should take after leaving the hospital. Please make sure you see your Primary Care Provider as part of your follow up plan. Activity: Resume your previous activity Non-emergency contact: Primary Care Provider Call non-emergency contact if: you have any medication questions, your symptoms worsen and your pain is not controlled [place] [facility] [place] Group] - 07/12/19 9:20 am (Please, follow up at [facility] General Surgery Office with Dr. Palmer Drake on FridayJuly 12 at 9:20 am. *The office is located at [address] [place] [address] in [place]. If you need to change this appointment, call the office at [phone].) Foster Garcia MD [Primary Care Provider] - (Please, follow up with Dr. Garcia. *A nurse from this office is to call you with appointment information. If you have any questions, call the office at [phone].) Ajit Hinton MD [Physician] - 07/01/19 9:00 am (Please, follow up at [facility] for a radiation treatment on July 01 at 9:00 am. *If you have any questions, call the office at [phone].) Curt Dowling [Family Provider] - 07/09/19 2:10 pm (Please, follow up at [facility] with Dr. Dowling on FridayJuly 09 at 2:10 pm. *If you need to change this appointment, call the office at [phone].) Diet: Regular Addtl Attending Provider Instructions: During this admission, it has been determined that your new pain is not related to your gallbladder, as discussed and previously worked up. You had utilized morphine 15mg by mouth, as had previously been utilized as an outpatient. Additional doses were given while hospitalized to help control your pain. --You have been sent a prescription for morphine 15mg by mouth every 4-6 hours as needed for your pain. You may also continue your acetaminophen (tylenol) 500mg twice daily as you had been taking prior to admission. Continue to use miralax twice daily in addition to your lemon oil to help keep your bowels regular while on opioid pain medication. Please continue to follow up for your appointments with Dr. Hinton regarding your radiation treatments. The hope is that these treatments will help provide pain relief and you may not require as much oral pain medication. Follow up with Dr. Garcia in the next week to monitor your pain/progression. It has been a pleasure being a part of the care team providing for you during this admission. Take care! Pending Studies at Discharge: No Stand-Alone Forms: My [facility], Opioid Pain Management Medications and DC Order Prescriptions: Continued zoledronic ywyj-hcoeutln-vlqka 5 mg/100 mL piggyback 5 mg IV YEARLY Qty: 100 RF: 0 zafirlukast 20 mg tablet See Rx Instructions .ROUTE .COMPLEX Qty: 60 RF: 5 loratadine 10 mg tablet 10 mg PO DAILY PRN (Reason: Allergy Symptoms) RF: 0 cranberry conc-ascorbic acid 1 cap PO DAILY RF: 0 vitamin B complex capsule 1 cap PO DAILY RF: 0 acetaminophen 500 mg capsule 500 mg PO BID RF: 0 coenzyme Q10 [Co Q-10] 10 mg capsule 10 mg PO DAILY RF: 0 biotin 5 mg capsule 5 mg PO QAM RF: 0 minocycline 50 mg capsule 50 mg PO QAM RF: 0 Centrum 9 mg iron/ 15 mL (15 mL) Liquid 15 ml PO QAM RF: 0 ergocalciferol (vitamin D2) 50,000 unit capsule 50,000 units PO 2XWK RF: 0 diclofenac sodium 1 % kit 4 gm TOP UD RF: 0 calcium carbonate-vitamin D3 500 mg(1,250mg) -200 unit powder in packet 1 ea PO BIDM RF: 0 oxycodone 5 mg Tablet 5 - 10 mg PO ONCE PRN (Reason: Pain) RF: 0 Discontinued morphine 15 mg tablet 15 mg PO .q4-6h PRN (Reason: Pain) RF: 0 No Action morphine 15 mg tablet 15 mg PO Q6H PRNRF: 0 Discharge Orders: Discharge Order (Routine); Ordered 06/30/19 Ordered By: Dayna Gutierrez/Other Patient Handouts: Morphine immediate release tablets Admission Data Admit Date/Time: 06/27/19 22:29 Attending Provider: Kalani Ortez Admit Provider: Lai Nguyen Primary Care Provider: Foster Garcia Other Providers: Lai Nguyen ; Blossom Schilling ; [facility],Home Healthcare Other Interventions: Discharge Summary Assessment (RN) Last Done: 06/30/19 11:11 DC Date/Time DO NOT enter until pt leaves facility: 06/30/19 11:54 Supervising Physician Co-Signing Physician Notes PA Supervision Note: I did not personally see or examine the patient today, but I verified all amado points of JENNIFER Cook's assessment and plan with the following exceptions/additions: Of note, I saw the patient late last evening, within 24 hours of discharge and s he was medically stable for discharge at that time, but did not have a ride for XRT this AM--therefore she stayed overnight for social reasons. Stable for dc to home today with plan as above Coding Level of Care Code D/C Day Management >30 mins Diagnoses Back pain M54.9; G89.29 Back pain laterality: right Back pain location: back pain in unspecified location Chronicity: chronic Acute cholecystitis K81.0 Metastatic cancer to lung C78.00 Laterality: unspecified laterality Malignant neoplasm of upper-inner quadrant of left breast in female, estrogen receptor negative C50.212; Z17.1 Cancer related pain G89.3 Desmoid tumor D48.1 Peripheral neuropathy G62.9 Asthma J45.909 DVT prophylaxis Z29.9
--- NOTE | 2019-06-29 17:19 | Palliative Care Progress Note ---
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 Patient is status post left mastectomy and chemo. 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 Patient is followed by Dr. Dowling and was last seen in his office on 06/16. At that time plan was to have a port placed for possible continued chemo. Patient admitted on 06/27 for intractable back pain of 3 days duration. Patient has had similar episodes in the past and been hospitalized. Patient reports she required taking 3 oxycodone at 5 mg each to help with the pain-this caused increase dizziness and nausea. Patient has been receiving XRT to the spinal lesion-she has received 5 out of 10 planned sessions. Patient had evaluation for possible cholecystitis-nature and location of pain unlikely due to gallbladder. Patient seen alone, patient had refused methadone and Decadron this a.m.-is currently not having any pain. -Patient would not be a good candidate for either medications at this point given that pain is intermittent. Would recommend continued PRN morphine at 15 to 30 mg as needed Patient is alert and oriented, mentally quite sharp. Was able to tell me that she would want her adopted daughter, Lisette, to be her medical power of muffler installer if needed. She states her biological daughter has severe schizophrenia and would not want her making decisions for her. Patient also reported that she did not want to continue with chemo nor did she want the port placed. - (2) Cancer related pain: Patient with known T8 spinal lesion-receiving XRT-completed 5 of 10 planned sessions. -continue PRN morphine, she may require periodic admission for prolonged episodes of severe pain. (3) Back pain: Patient points to location-approximately an area of T8 known skeletal lesion-patient to complete course of XRT (4) Malignant neoplasm of upper-inner quadrant of left breast in female, estrogen receptor negative: Patient with skeletal lesion as well as 2 lung lesions-biopsy of lung lesion positive for triple negative breast cancer. -Patient states she does not want any further chemo nor is interested in having a port placed. We will need to continue to have discussions once patient's pain is well controlled-she may feel differently if pain is well controlled (5) Mass of left lung: Biopsy positive for triple negative breast CA Subjective Patient awake and alert, no acute distress. Denies pain on exam today. Patient did not require any PRN medications for pain or discomfort since approximately 1:30 PM yesterday afternoon. Patient able to turn in bed, sit up, as well as ambulate without any signs or symptoms of discomfort. Review of Systems Review of Systems: Patient denies pain, fever, chills, chest pain, shortness of breath, or abdominal pain Physical Exam Physical Exam: PE: Patient awake alert, no acute distress HEENT: EOMI, hearing within normal limits Respirations: Unlabored CV regular rate Abdomen: Soft, nontender Extremities: Full range of motion, normal strength Neuro: No focal deficits, normal gait Results & Data Vital Signs (Past 12 Hours) Vital Signs Temp Pulse Resp BP BP Pulse Ox 06/29/19 15:06 98.2 F 68 17 154/62 H 96 06/29/19 07:55 98.2 F 68 16 127/61 97 PG Care Time/CCT Total # of Minutes Spent Total Time Spent with Patient: Total time spent 45 minutes with greater than 50% of the time spent assessing patient's current pain level and in coordination of care with attending team. Coding Level of Care Code 70208 Subseq Hosp Care Lvl 3 Diagnoses Palliative care encounter Z51.5 Cancer related pain G89.3 Back pain M54.9; G89.29 Back pain laterality: right Back pain location: back pain in unspecified location Chronicity: chronic Malignant neoplasm of upper-inner quadrant of left breast in female, estrogen receptor negative C50.212; Z17.1 Mass of left lung R91.8 Time Spent (min) 45 (1) Back pain Back pain laterality: right Back pain location: back pain in unspecified location Chronicity: chronic Qualified Code(s): M54.9 - Dorsalgia, unspecified; G89.29 - Other chronic pain
--- NOTE | 2019-06-29 19:32 | Hospitalist Progress Note ---
Date of Service June 29, 2019 Assessment & Plan (1) Back pain: * Initially thought to be secondary from gallbladder, however all imaging negative for acute cholecystitis * Currently undergoing palliative radiation with Dr. Hinton -- had received total of 5 treatments, additional 5 to be done this week * Palliative consult * Dilaudid 0.5 mg IV every 3 hours as needed severe pain -- patient states this does not help with pain and has terrible effects * Morphine 15mg PO x 2 afternoon of 06/28 for uncontrolled pain, then Q4h prn * Added methadone 2.5mg QAM and Decadron 4mg IV QAM --> patient refused morning medications. Would like to continue using morphine at this time. Per discussion with palliative care, not a good candidate at this time given pain is intermittent. Rec morphine 15-30mg prn. she may require periodic admission for prolonged episodes of severe pain. (2) Acute cholecystitis: * Initially admitted with concern for acute cholecystitis, as patient was having right sided abdominal pain * CT scan, ultrasound and clinical examination most suggestive of acute cholecystitis. however, had previously been worked up in May with negative HIDA. * Repeat HIDA scan negative for acute cholecystitis. * Placed on ceftriaxone 1 g IV daily but discontinued as imaging negative, patient afebrile without WBC * Bulb Assembler consult (3) Metastatic cancer to lung: * And thoracic spine mets to T8 -- likely origin of pain * See above -- previously discovered last admission, May 2019 * Biopsy performed with metastatic adenocarcinoma, favoring breast origin * Patient to have appointment with general surgery for possible port placement next week, however it appears patient may not want to pursue this currently. 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 Dowling. 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 S/p L mastectomy, but refused adjuvant radiation or chemotherapy due to concerns for toxicity. * Follows with Dr. 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 Follows with Dr. Hawk as outpatient -- patient managed with vitamins as outpatient. Voltaren, tylenol as needed while inpatient. 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 She states she has peripheral neuropathy secondary to this and has been taking vitamins, follows with Dr. Hawk. (8) Asthma: * Per patient. As zariflukast non-formulary, patient had not been receiving -- patient without s/sx exacerbation during admission. Resumed at discharge. (9) DVT prophylaxis: * SCDs, Heparin SQ Dispo: XRT in AM, then likely discharge home Supervising Physician Co-Signing Physician Notes PA Supervision Note: I personally saw and examined the patient. I verified all amado points and agree with JENNIFER Cook with the following exceptions and/or additions: Pt seen and is doing well but does not have a ride home this evening. Pain is controlled. She also has radiation the mornings concerned about having a ride to get to the morning would like to stay overnight. Patient was very tangential and talkative, did not have any other concerns. Vitals reviewed No acute distress, alert awake oriented Unlabored breathing No rashes visible Anicteric sclerae Stable for discharge at this time, admitted for pain control for known cancer pain, work-up again negative for acute cholecystitis Plan for discharge tomorrow morning after radiation Subjective Patient denies pain this morning. Still with worries regarding constipation. Upset that nursing requiring orders and that radiation nurses unable to place orders for inpatients. Lack of communication. She did receive XRT this morning. States she feels ready for discharge but needs to know if she will need her peace keepers to provide transportation. As discharge later in the evening, patient to stay overnight and receive XRT in AM and then discharge home. CM to see in AM. Review of Systems Review of Systems: All systems reviewed & are unremarkable except as noted in HPI & below Constitutional: no fever and no chills Eyes: no diplopia and no problem reported Ear, Nose, Mouth, Throat: no sore throat and no dysphagia Respiratory: no cough and no dyspnea Cardiovascular: no chest pain and no palpitations Gastrointestinal: + constipation; no abdominal pain, no nausea and no vomiting Genitourinary: no dysuria and no urinary frequency Musculoskeletal: + back pain Integumentary: no rash and no lesions Physical Exam Physical Exam: Constitutional WD/WN, vitals as above Eyes + anicteric sclerae and PERRL Neck trachea midline, no thyromegaly Respiratory normal respiratory effort, lungs clear to auscultation Cardiovascular RRR, no murmur, no edema Chest (Breasts) Additional Comments: L mastectomy scar Gastrointestinal (Abdomen) normal bowel sounds, soft, nontender, no hepatosplenomegaly ostomy present, mucus discharge present Musculoskeletal no cyanosis or clubbing, extremities motor strength 5/5 Skin mild erythema of thoracic/lumbar spine Neurologic PERRL, EOMI, accommodation nl, no face palsy, no dysarthria Psychiatric A+Ox3, euthymic affect Lymphatic no cervical or axillary lymphadenopathy Results & Data Vital Signs (Past 12 Hours) Vital Signs Temp Pulse Resp BP BP Pulse Ox 06/29/19 15:06 36.8 C 68 17 154/62 H 96 06/29/19 07:55 36.8 C 68 16 127/61 97 PG Care Time/CCT Total # of Minutes Spent Total Time Spent with Patient: Total time spent is greater than 50% in coordination of care (as documented) at patient's floor/unit and/or counseling patient: Coding Level of Care Code 34802 Subseq Hosp Care Lvl 2 Diagnoses Back pain M54.9; G89.29 Back pain laterality: right Back pain location: back pain in unspecified location Chronicity: chronic Acute cholecystitis K81.0 Metastatic cancer to lung C78.00 Laterality: unspecified laterality Malignant neoplasm of upper-inner quadrant of left breast in female, estrogen receptor negative C50.212; Z17.1 Peripheral neuropathy G62.9 Cancer related pain G89.3 Desmoid tumor D48.1 Asthma J45.909 DVT prophylaxis Z29.9 (1) Metastatic cancer to lung Laterality: unspecified laterality Qualified Code(s): C78.00 - Secondary malignant neoplasm of unspecified lung (2) Back pain Back pain laterality: right Back pain location: back pain in unspecified location Chronicity: chronic Qualified Code(s): M54.9 - Dorsalgia, unspecified; G89.29 - Other chronic pain
[2019-06-30 07:23] VITALS: BP 172/84; PULSE 68; TEMP 98.2; O2SAT 96
[2019-06-30] MEDS: HEPARIN SOD 5,000 UNIT/0.5 ML VIAL SQ SCH (08:42)
[2019-06-30] MEDS: MINOCYCLINE HCL 50 MG PO SCH (08:42)
[2019-06-30] MEDS: ZAFIRLUKAST 20 MG PO SCH (08:44)
== END 2019-06-30 11:54 | disposition home or self-care (01) | DRG 445 ==
LOC: ED 18:23 → SUATTDRO 22:29 → 3N 22:29

== ENCOUNTER 2019-08-13 10:20 | Inpatient (IN) ==
[2019-08-13] MEDS ORDERED: SODIUM CHLORIDE 0.9% 1000ML 1,000 ML IV ONE (11:16)
[2019-08-13] MEDS ORDERED: ONDANSETRON INJ 2 MG/ML 2 ML VIAL IV STA (11:16)
--- NOTE | 2019-08-13 11:49 | XRay Report ---
XR chest 1V portable CLINICAL HISTORY: 89 years-old Female presenting with cough. TECHNIQUE: Portable upright AP view of the chest was obtained. COMPARISON: 07/14/2019. FINDINGS: Right internal jugular Mediport terminates in the upper SVC and has been accessed. The overlying exte rnal leads. Atherosclerosis of the aortic arch. Cardiac silhouette normal in size. Diffusely heteroge neous and coarsened lung markings. Biapical pleural parenchymal scarring suspected, right greater nicola n left. Prominent skin folds over the periphery of the lung olivier. Redemonstration of the focal nodu lar opacity in the left mid to lower lung. Adjacent pleural-based mass also evident, unchanged No new opacity. No large effusion or pneumothorax. Degenerative changes of the thoracic spine. Upper abdome n normal. IMPRESSION: 1. Unchanged left mid to lower lung nodule and adjacent pleural-based mass. 2. No superimposed infiltrate to suggest pneumonia. ACT 112: Negative or not required by law. Electronically signed by: Freddie Michele M.D. 08/13/2019 11:48 AM
[2019-08-13 12:01] LABS: Basophils # (auto) 0.02 K/uL (0-0.2); Basophils % (auto) 0.3 %; Eosinophils # (auto) 0.02 K/uL (0-0.5); Eosinophils % (auto) 0.3 %; Hematocrit (blood only) 33.6 % (37-47); Hemoglobin 11.2 g/dL (12.0-16.0); Immature Granulocytes # (auto) 0.05 K/uL (0.00-0.02); Immature Granulocytes % (auto) 0.6 %; Lymphocytes # (auto) 0.66 K/uL (1.2-3.4); Lymphocytes % (auto) 8.3 %; Mean Corpuscular Hemoglobin 29.9 pg (25-34); Mean Corpuscular Hgb Conc 33.3 g/dL (32-36); Mean Corpuscular Volume 89.6 fL (80-100); Mean Platelet Volume 10.8 fL (7.4-10.4); Monocytes # (auto) 0.62 K/uL (0.11-0.59); Monocytes % (auto) 7.8 %; Neutrophils # (auto) 6.59 K/uL (1.4-6.5); Neutrophils % (auto) 82.7 %; Platelet Count 233 K/uL (130-400); RDW Coefficient of Variation 14.7 % (11.5-14.5); Red Blood Count 3.75 M/uL (4.2-5.4); White Blood Count 7.96 K/uL (4.8-10.8)
[2019-08-13 12:20] LABS: Alanine Aminotransferase 25 U/L (12-78); Albumin Level 3.2 gm/dl (3.4-5.0); Aspartate Aminotransferase 12 U/L (15-37); BUN Creatinine Ratio 42.8 (10-20); Bilirubin Direct < 0.1 mg/dl (0-0.2); Blood Urea Nitrogen 46 mg/dl (7-18); Calcium 8.9 mg/dl (8.5-10.1); Carbon Dioxide 15 mmol/L (21-32); Chloride 119 mmol/L (98-107); Creatinine Clr Calc Pharmacy 32.6 ml/min; Est GFR (African American) 54.1; Est GFR (Non-African American) 46.6; Glucose 112 mg/dl (70-99); Lipase 107 U/L (73-393); Magnesium 1.9 mg/dl (1.8-2.4); Potassium 3.5 mmol/L (3.5-5.1); Sodium 141 mmol/L (136-145)
[2019-08-13 12:23] LABS: Alkaline Phosphatase 74 U/L (45-117); Bilirubin,Total 0.3 mg/dl (0.2-1); INR 1.5 (0.9-1.1); Partial Thromboplastin Ratio 1.6; Prothrombin Time 15.2 Seconds (9.0-12.0); Total Protein 7.1 gm/dl (6.4-8.2)
[2019-08-13] MEDS ORDERED: SODIUM CHLORIDE 0.9% 1000ML 1,000 ML IV SCH (12:30)
--- NOTE | 2019-08-13 12:32 | Emergency Department Note ---
History of Present Illness General Chief complaint: Referred by Doctor Stated complaint: CANCER PT,DOC REFERRED,VOMITING,DIARRHEA Time Seen by Provider: 08/13/19 11:16 History of Present Illness Provider complaint: Nausea, vomiting, diarrhea Presents to the emergency department with nausea, vomiting, and diarrhea. She reports no melena or hematochezia. No bilious vomiting, hematemesis, or coffee- ground emesis. She also reports a cough. Patient is a chemotherapy patient. She is stage IV breast cancer with metastasis. She states she recently got chemotherapy done and since then has not been feeling well. She states she spoke with her oncology doctor Dr. Dowling who referred her to the emergency department. Home Medications Home Medications Medication Instructions Recorded Confirmed Type cranberry conc-ascorbic acid 1 cap PO QDL 01/26/19 08/13/19 History loratadine 10 mg tablet 10 mg PO BID tab 01/26/19 08/13/19 History vitamin B complex 1 cap PO QDD 01/26/19 08/13/19 History acetaminophen 500 mg capsule 500 mg PO BID cap 02/18/19 08/13/19 History biotin 5 mg capsule 5 mg PO QAM 02/18/19 08/13/19 History coenzyme Q10 10 mg capsule 10 mg PO QDD cap 02/18/19 08/13/19 History minocycline 50 mg capsule 50 mg PO QAM 02/18/19 08/13/19 History Centrum 15 ml PO QAM 05/21/19 08/13/19 History diclofenac sodium 4 gm TOP UD 05/21/19 08/13/19 History ergocalciferol (vitamin D2) 50,000 units PO TUTH 05/21/19 08/13/19 History calcium carbonate 500 1 ea PO BIDM 06/17/19 08/13/19 History mg(1,250mg)-vitamin D3 200 unit oral powder pack oxycodone 5 - 10 mg PO UD PRN 06/27/19 08/13/19 History Lactobacillus acidophilus 100 mmu cells PO QDD 07/12/19 08/13/19 History cyanocobalamin (vitamin B-12) 250 250 mcg PO HS 07/12/19 08/13/19 History mcg lozenges fluticasone propionate [Allergy 1 spray INTRANASAL BID 07/12/19 08/13/19 History Relief (fluticasone)] morphine 1 - 5 mg PO Q6H PRN 07/12/19 08/13/19 History zafirlukast [Accolate] 20 mg PO DAILY@0200 07/12/19 08/13/19 History ondansetron HCl 8 mg PO Q8H PRN 08/13/19 08/13/19 History Allergies Allergy/AdvReac Type Severity Reaction Status Date / Time erythromycin base Allergy Severe RASH Verified 08/13/19 11:16 meperidine Allergy Severe Dizziness Verified 08/13/19 11:16 and "itchiness" all over adhesive Allergy Mild RASH Verified 08/13/19 11:16 metaproterenol Allergy Mild RASH Verified 08/13/19 11:16 metronidazole Allergy Mild REDNESS Verified 08/13/19 11:16 povidone-iodine Allergy Mild RASH Verified 08/13/19 11:16 zinc oxide Allergy Mild RASH Verified 08/13/19 11:16 theophylline Allergy Unknown FROM Verified 08/13/19 11:16 UNCODED ALL. diphenhydramine AdvReac Severe SEVERE Verified 08/13/19 11:16 SWEATING AND ITCHING nitroglycerin AdvReac Severe HYPOTENSION Verified 08/13/19 11:16 AND PT PASSES OUT, WAS BROUGHT TO ER. 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 Fibromyalgia Hearing loss Hepatitis no further details per RN phone interview Intractable back pain Kidney stone Lesion of vertebra T8 lesion Low back pain Mass of left lung FNA 05/25/19 metastatic - breast as primary Metastatic breast cancer Osteoarthritis Osteopenia Peripheral neuropathy Rosacea Short bowel syndrome Surgical History H/O adenoidectomy H/O: hysterectomy History of anesthesia reaction patient reports multiple times that she "does not go to sleep and jumps when waking her up" History of cataract surgery bilateral History of colonoscopy History of mastectomy (Inactive) Left mastectomy with SLN biopsy on 10/28/14 Hx of tonsillectomy S/P small bowel resection Removed 2 feet of intestine due to small bowel obstructions;found a mass - desmoid tumor Status post left foot surgery Splastic implant in left great toe; Surgically created abdominal mucous fistula Family History Father , 80yo Acute myocardial infarction History of heart valve replacement Congestive heart failure Mother , 79yo Stroke syndrome Cardiomegaly Sister Dementia Carotid artery disease Son Spinal stenosis Daughter Schizophrenia OCD (obsessive compulsive disorder) Other Family history non-contributory Social History Preferred Language: Syriac Communication Ability: Effective Visual Impairment: No Limitations Hearing Ability: Normal Breakfast Supervisor Required: No Beliefs That Will Affect Care: None marital status: / Current Living Situation: Alone Current Living Situation Comment: Lives in apartment. 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 Other Information That Helps Us Care for You: No Feels Safe at Home: Yes Safety Concerns: Feels Safe At This Time Smoking Status: Never smoker Do You Dip or Chew Tobacco: No ; Second Hand Exposure: No ; Tobacco Cessation Education Requested by Patient: No Hx Alcohol Use: No Hx Substance Use: No caffeine: No during the past year weight has: remained stable Review of Systems A total of 10 systems reviewed and were otherwise negative Physical Exam Vital Signs Vital Signs - 24 hr 08/13/19 10:24 08/13/19 11:16 08/13/19 12:21 Temperature 36.5 C Temperature Source Oral Pulse Rate 84 Pulse Rate [Apical] 81 Respiratory Rate 18 18 Respiratory Effort / Characteristics Non-Labored Spontaneous Respiratory Depth Normal Respiratory Pattern Regular Blood Pressure 108/68 Blood Pressure [Left Arm] 121/65 Blood Pressure Mean 81 Blood Pressure Mean [Left Arm] 83 Blood Pressure Position Sitting Pulse Oximetry 100 100 97 Oxygen Delivery Method Room Air Room Air Room Air Sepsis Recent Fever Within 48 Hours No Sepsis New/Unexplained Change in Mental Status No Sepsis Action Taken by Nursing No Action Required Physical Exam GENERAL: She is old and frail appearing. HENT: Exam performed. -Head: Normocephalic and atraumatic. -Right Ear: External ear normal. No mastoid tenderness. -Left Ear: External ear normal. No mastoid tenderness. -Mouth/Throat: The oropharynx is clear and moist. No trismus in the jaw. No dental abscesses or uvula swelling. No oropharyngeal exudate or tonsillar abscesses. EYES: Conjunctivae and EOM are normal. Pupils are equal, round, and reactive to light. Right eye exhibits no discharge. Left eye exhibits no discharge. No scleral icterus. NECK: Normal range of motion. Neck supple. No JVD present. No spinous process tenderness present. No carotid bruit present. No rigidity. No tracheal deviation and normal range of motion present. No Brudzinski's sign and no Kernig's sign noted. CV: Normal rate, regular rhythm, normal heart sounds and intact distal pulses. There is no peripheral edema. Palpable radial pulses bue. PULM/CHEST: Effort normal and breath sounds normal. No respiratory distress. No stridor. She has no wheezes. She has no rales. -Chest Wall: She exhibits no tenderness. ABD: The abdomen is soft. Bowel sounds are normal. She has no distension. No mass is present. There is no tenderness. There is no rebound, no guarding, no Golden's sign and no tenderness at McBurney's point. Rovsig negative MUSC/SKEL: Normal range of motion. There is no peripheral edema, tenderness or deformity. LYMPH: No cervical adenopathy. NEURO: Noted and sensation grossly intact. SKIN: Skin is warm and dry. She is not diaphoretic. PSYCH: She has a normal mood and affect. Behavior is normal. Judgment and thought content normal. Course Course 1150: The patient was evaluated in room BP. A complete history and physical exam was performed. 1230: Vital signs stable. Labs show a BUN of 46 and creatinine of 1.07. Patient appears severely dehydrated. Patient was evaluated by her oncologist Dr. Dowling at bedside who recommends the patient be admitted and continued with IV hydration. He also recommends that a stool culture be sent on the patient. Dr. Mateo ferrer [facility] hospitalist team was contacted made aware of the admission. Administered Medications Heparin Sodium (Porcine) (Heparin Sodium (Porcine)) 5,000 units SQ Q8 KELLI Stop: 04/12/20 16:39 Last Admin: 08/13/19 17:41 Dose: 5,000 units Documented by: [id number] Cosigned by: [id number] Potassium Chloride/Sodium Chloride (Normal Saline W/20 Meq Kcl) 20 meq in 1,000 mls @ 80 mls/hr IV .[id number] KELLI Stop: 09/12/19 16:59 Last Admin: 08/13/19 17:41 Dose: 80 mls/hr Documented by: [id number] Multivitamins/Minerals (Caltrate Plus) 1 tab PO BIDM KELLI Stop: 09/12/19 16:59 Last Admin: 08/13/19 17:41 Dose: 1 tab Documented by: [id number] Vitamin B Complex (Vitamin B Complex) 1 tab PO QDD KELIL Stop: 09/12/19 16:39 Last Admin: 08/13/19 17:41 Dose: 1 tab Documented by: [id number] Discontinued Medications Sodium Chloride (Nss 1000ml) 1,000 mls @ 999 mls/hr IV .Q1H1M ONE Stop: 08/13/19 12:16 Last Infusion: 08/13/19 13:09 Dose: 0 mls/hr Documented by: [id number] Admin: 08/13/19 11:51 Dose: 999 mls/hr Documented by: [id number] Sodium Chloride (Nss 1000ml) 1,000 mls @ 125 mls/hr IV .Q8H KELLI Stop: 09/12/19 12:29 Last Infusion: 08/13/19 17:40 Dose: 0 mls/hr Documented by: [id number] Admin: 08/13/19 12:49 Dose: 125 mls/hr Documented by: [id number] Magnesium Sulfate/Dextrose (Magnesium Sulfate / D5w) 1 gm in 100 mls @ 100 mls/hr IV Q1H KELLI Stop: 08/13/19 18:39 Last Admin: 08/13/19 17:40 Dose: 100 mls/hr Documented by: [id number] Ondansetron HCl (Zofran) 4 mg IV NOW STA Stop: 08/13/19 11:17 Last Admin: 08/13/19 11:52 Dose: 4 mg Documented by: [id number] Medical Decision Making Laboratory Data Result diagrams: 08/13/19 11:50 08/13/19 11:50 Lab Results 03/13/20 03/13/20 03/13/20 Range/Units 11:50 11:50 11:50 WBC 7.96 (4.8-10.8) K/uL RBC 3.75 L (4.2-5.4) M/uL Hgb 11.2 L (12.0-16.0) g/dL Hct 33.6 L (37-47) % MCV 89.6 (80-100) fL MCH 29.9 (25-34) pg MCHC 33.3 (32-36) g/dL RDW Std Deviation 47.0 H (36.4-46.3) fL RDW Coeff of Spencer 14.7 H (11.5-14.5) % Plt Count 233 (130-400) K/uL MPV 10.8 H (7.4-10.4) fL Immature Gran % (Auto) 0.6 % Neut % (Auto) 82.7 % Lymph % (Auto) 8.3 % [place] % (Auto) 7.8 % Eos % (Auto) 0.3 % Baso % (Auto) 0.3 % Immature Gran # (Auto) 0.05 H (0.00-0.02) K/uL Neut # (Auto) 6.59 H (1.4-6.5) K/uL Lymph # (Auto) 0.66 L (1.2-3.4) K/uL [place] # (Auto) 0.62 H (0.11-0.59) K/uL Eos # (Auto) 0.02 (0-0.5) K/uL Baso # (Auto) 0.02 (0-0.2) K/uL PT 15.2 H (9.0-12.0) Seconds INR 1.5 H (0.9-1.1) APTT 45.8 H* (21.0-31.0) Seconds PTT Ratio 1.6 Sodium 141 (136-145) mmol/L Potassium 3.5 (3.5-5.1) mmol/L Chloride 119 H (98-107) mmol/L Carbon Dioxide 15 L (21-32) mmol/L Anion Gap 7.0 (3-11) BUN 46 H (7-18) mg/dl Creatinine 1.07 (0.6-1.2) mg/dl Est Cr Clr Drug Dosing 32.6 ml/min Est GFR ( Amer) 54.1 Est GFR (Non-Af Amer) 46.6 BUN/Creatinine Ratio 42.8 H (10-20) Glucose 112 H (70-99) mg/dl Lactate (0.4-2.0) mmol/L Calcium 8.9 (8.5-10.1) mg/dl Magnesium 1.9 (1.8-2.4) mg/dl Total Bilirubin 0.3 (0.2-1) mg/dl Direct Bilirubin < 0.1 (0-0.2) mg/dl AST 12 L (15-37) U/L ALT 25 (12-78) U/L Alkaline Phosphatase 74 (45-117) U/L Total Protein 7.1 (6.4-8.2) gm/dl Albumin 3.2 L (3.4-5.0) gm/dl Lipase 107 (73-393) U/L 08/13/19 Range/Units 11:50 WBC (4.8-10.8) K/uL RBC (4.2-5.4) M/uL Hgb (12.0-16.0) g/dL Hct (37-47) % MCV (80-100) fL MCH (25-34) pg MCHC (32-36) g/dL RDW Std Deviation (36.4-46.3) fL RDW Coeff of Spencer (11.5-14.5) % Plt Count (130-400) K/uL MPV (7.4-10.4) fL Immature Gran % (Auto) % Neut % (Auto) % Lymph % (Auto) % [place] % (Auto) % Eos % (Auto) % Baso % (Auto) % Immature Gran # (Auto) (0.00-0.02) K/uL Neut # (Auto) (1.4-6.5) K/uL Lymph # (Auto) (1.2-3.4) K/uL [place] # (Auto) (0.11-0.59) K/uL Eos # (Auto) (0-0.5) K/uL Baso # (Auto) (0-0.2) K/uL PT (9.0-12.0) Seconds INR (0.9-1.1) APTT (21.0-31.0) Seconds PTT Ratio Sodium (136-145) mmol/L Potassium (3.5-5.1) mmol/L Chloride (98-107) mmol/L Carbon Dioxide (21-32) mmol/L Anion Gap (3-11) BUN (7-18) mg/dl Creatinine (0.6-1.2) mg/dl Est Cr Clr Drug Dosing ml/min Est GFR ( Amer) Est GFR (Non-Af Amer) BUN/Creatinine Ratio (10-20) Glucose (70-99) mg/dl Lactate 0.9 (0.4-2.0) mmol/L Calcium (8.5-10.1) mg/dl Magnesium (1.8-2.4) mg/dl Total Bilirubin (0.2-1) mg/dl Direct Bilirubin (0-0.2) mg/dl AST (15-37) U/L ALT (12-78) U/L Alkaline Phosphatase (45-117) U/L Total Protein (6.4-8.2) gm/dl Albumin (3.4-5.0) gm/dl Lipase (73-393) U/L Imaging Data Radiologist's Impression: XR chest 1V portable CLINICAL HISTORY: 89 years-old Female presenting with cough. TECHNIQUE: Portable upright AP view of the chest was obtained. COMPARISON: 07/14/2019. FINDINGS: Right internal jugular Mediport terminates in the upper SVC and has been accessed. The overlying external leads. Atherosclerosis of the aortic arch. Cardiac silhouette normal in size. Diffusely heterogeneous and coarsened lung markings. Biapical pleural parenchymal scarring suspected, right greater than left. Prominent skin folds over the periphery of the lung olivier. Redemonstration of the focal nodular opacity in the left mid to lower lung. Adjacent pleural-based mass also evident, unchanged No new opacity. No large effusion or pneumothorax. Degenerative changes of the thoracic spine. Upper abdomen normal. IMPRESSION: 1. Unchanged left mid to lower lung nodule and adjacent pleural-based mass. 2. No superimposed infiltrate to suggest pneumonia. ACT 112: Negative or not required by law. Electronically signed by: Freddie Michele M.D. 08/13/2019 11:48 AM Dictated: 08/13/19 1146 Transcribed: 08/13/19 1146 ECG Data Indication: + other (Arrhythmia) Rate (beats per minute): 71 Rhythm: + normal sinus ECG Intervals/blocks: + Normal QRS, + Normal CA and + Normal QT-c Additional Comments: Sinus Rhythym. Rate 71. CA QRS and Qtc intervals within normal limits. No ST elevation or ST depression MDM Narrative 1150: The patient was evaluated in room BP. A complete history and physical exam was performed. 1230: Vital signs stable. Labs show a BUN of 46 and creatinine of 1.07. P atient appears severely dehydrated. Patient was evaluated by her oncologist Dr. Dowling at bedside who recommends the patient be admitted and continued with IV hydration. He also recommends that a stool culture be sent on the patient. Dr. Galindo [facility] hospitalist team was contacted made aware of the admission. Impression & Plan Acute kidney injury, Acute dehydration Discharge Plan Visit Data *Final* Discharge Date/Time: 08/13/19 16:04 Chief Complaint: Referred by Doctor Stated Complaint: CANCER PT,DOC REFERRED,VOMITING,DIARRHEA ED Provider: Solitario Coleman Discharge Problem: Acute kidney injury, Acute dehydration Patient Disposition: Admitted As Inpatient Discharge Instructions Interventions: ED Discharge Assessment Last Done: 08/13/19 16:04
[2019-08-13 12:43] LABS: Partial Thromboplastin Time 45.8 Seconds (21.0-31.0)
--- NOTE | 2019-08-13 13:42 | History & Physical Report ---
Date of Service August 13, 2019 Assessment & Plan (1) Acute dehydration: Cr is 1.0 on admission Clinically dehydrated, likely related to poor PO intake, n/v/d Monitor on IVF Stool cx pending Blood cx pending Lactic acid WNL Discussed trial of jell-o in ED and pt is agreeable to this. Requesting historic sites registrar c/s prior to ordering food due to multiple food intolerances. Clears, ADAT (2) Malignant neoplasm of upper-inner quadrant of left breast in female, estrogen receptor negative: Follows with Dr. Dowling Last chemo was 08/03 (tx #3) with plans for QOweek Multiple mets sites (3) Palliative care encounter: Seen by palliative team on last admission Set up for home hospice, however declined services upon arrival to house (4) Cancer related pain: continue home meds (5) Hypomagnesemia: 1.9 on admission Will replace and monitor given LE muscle cramping/spasms and nutrition challenges (6) Hypokalemia: 3.5 on admission Will replace and monitor given LE muscle cramping/spasms and nutrition challenges (7) Rosacea: Minocycline (8) DVT prophylaxis: Heparin for DVT proph Remote hx of DVT in 1967 History of Present Illness Primary Care Provider: Foster Garcia MD 89 y/o F who was referred to the ED by Dr. Dowling for concerns regarding n/v and dehydration. Pt received her 3rd round of chemo on 08/03. She states that she has had progressive n/v/d since this last tx. [facility] for IVF, Mg, K replacement. [facility] nursing called pt today as a f/u from that visit and "thought I sounded dehydrated, so they told me to come to the ED". 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 She did have a boost last night and bananas with milk this AM and no emesis with either of those. Her last emesis was last night. She is wearing a diaper now due to the ongoing diarrhea. She feels that she is getting more and more weak every day. "I am ready to . I am not going to kill myself, but I don't want to live like this any more." Pt denies fever, SOB, chest pain, abd pain, LE swelling. Pt states that last night she was having LE cramping/spasms. She states she drank a boost and this resolved. Pt is requesting to speak with a historic sites registrar or human resources file clerk prior to ordering food. She has many food intolerances and needs to discuss this prior to eating anything at [facility]. Pt has Comfort Keepers in place. Pt was seen by palliative care on last visit. She was set up for home hospice, however declined these services upon arrival to her home after d/c. Allergies Allergy/AdvReac Type Severity Reaction Status Date / Time erythromycin base Allergy Severe RASH Verified 08/13/19 11:16 meperidine Allergy Severe Dizziness Verified 08/13/19 11:16 and "itchiness" all over adhesive Allergy Mild RASH Verified 08/13/19 11:16 metaproterenol Allergy Mild RASH Verified 08/13/19 11:16 metronidazole Allergy Mild REDNESS Verified 08/13/19 11:16 povidone-iodine Allergy Mild RASH Verified 08/13/19 11:16 zinc oxide Allergy Mild RASH Verified 08/13/19 11:16 theophylline Allergy Unknown FROM Verified 08/13/19 11:16 UNCODED ALL. diphenhydramine AdvReac Severe SEVERE Verified 08/13/19 11:16 SWEATING AND ITCHING nitroglycerin AdvReac Severe HYPOTENSION Verified 08/13/19 11:16 AND PT PASSES OUT, WAS BROUGHT TO ER. guaifenesin AdvReac Intermediate FROM Verified 08/13/19 11:16 VICODIN COUGH SYRUP-VERTIGO,HYPERALERTNESS lorazepam AdvReac Intermediate oversedation,fecal Verified 08/13/19 11:16 incontinence tramadol AdvReac Intermediate LOW BP Verified 08/13/19 11:16 hydrocodone AdvReac Unknown "VICODIN Verified 08/13/19 11:16 COUGH MED",MORPHINE AND LORTAB OK Home Medications Home Medications Medication Instructions Recorded Confirmed Type cranberry conc-ascorbic acid 1 cap PO QDL 01/26/19 08/13/19 History loratadine 10 mg tablet 10 mg PO BID tab 01/26/19 08/13/19 History vitamin B complex 1 cap PO QDD 01/26/19 08/13/19 History acetaminophen 500 mg capsule 500 mg PO BID cap 02/18/19 08/13/19 History biotin 5 mg capsule 5 mg PO QAM 02/18/19 08/13/19 History coenzyme Q10 10 mg capsule 10 mg PO QDD cap 02/18/19 08/13/19 History minocycline 50 mg capsule 50 mg PO QAM 02/18/19 08/13/19 History Centrum 15 ml PO QAM 05/21/19 08/13/19 History diclofenac sodium 4 gm TOP UD 05/21/19 08/13/19 History ergocalciferol (vitamin D2) 50,000 units PO TUTH 05/21/19 08/13/19 History calcium carbonate 500 1 ea PO BIDM 06/17/19 08/13/19 History mg(1,250mg)-vitamin D3 200 unit oral powder pack oxycodone 5 - 10 mg PO UD PRN 06/27/19 08/13/19 History Lactobacillus acidophilus 100 mmu cells PO QDD 07/12/19 08/13/19 History cyanocobalamin (vitamin B-12) 250 250 mcg PO HS 07/12/19 08/13/19 History mcg lozenges fluticasone propionate [Allergy 1 spray INTRANASAL BID 07/12/19 08/13/19 History Relief (fluticasone)] morphine 1 - 5 mg PO Q6H PRN 07/12/19 08/13/19 History zafirlukast [Accolate] 20 mg PO DAILY@0200 07/12/19 08/13/19 History ondansetron HCl 8 mg PO Q8H PRN 08/13/19 08/13/19 History Past Med/Surg History Medical History Asthma no inhalers Deep vein thrombosis bilateral legs (1966)/no problems since 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 Fibromyalgia Hearing loss Hepatitis no further details per RN phone interview Intractable back pain Kidney stone Lesion of vertebra T8 lesion Low back pain Mass of left lung FNA 05/25/19 metastatic - breast as primary Metastatic breast cancer Osteoarthritis Osteopenia Peripheral neuropathy Rosacea Short bowel syndrome Surgical History H/O adenoidectomy H/O: hysterectomy History of anesthesia reaction patient reports multiple times that she "does not go to sleep and jumps when waking her up" History of cataract surgery bilateral History of colonoscopy History of mastectomy (Inactive) Left mastectomy with SLN biopsy on 10/28/14 Hx of tonsillectomy S/P small bowel resection Removed 2 feet of intestine due to small bowel obstructions;found a mass - desmoid tumor Status post left foot surgery Splastic implant in left great toe; Surgically created abdominal mucous fistula Family History Father , 80yo Acute myocardial infarction History of heart valve replacement Congestive heart failure Mother , 79yo Stroke syndrome Cardiomegaly Sister Dementia Carotid artery disease Son Spinal stenosis Daughter Schizophrenia OCD (obsessive compulsive disorder) Other Family history non-contributory Social History Preferred Language: Urdu Communication Ability: Effective Visual Impairment: No Limitations Hearing Ability: Normal Tube Balancer Required: No Beliefs That Will Affect Care: None marital status: / Current Living Situation: Alone Current Living Situation Comment: Lives in apartment. 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 Other Information That Helps Us Care for You: No Feels Safe at Home: Yes Safety Concerns: Feels Safe At This Time Smoking Status: Never smoker Do You Dip or Chew Tobacco: No ; Second Hand Exposure: No ; Tobacco Cessation Education Requested by Patient: No Hx Alcohol Use: No Hx Substance Use: No caffeine: No during the past year weight has: remained stable Review of Systems Review of Systems: Pertinent positives and negatives reviewed in HPI--all others negative Physical Exam Constitutional: well developed and + cachectic; not ill appearing Eyes: normal visual olivier by confrontation and + anicteric sclerae Neck: normal visual inspection and trachea midline Respiratory: normal respiratory effort, lungs clear to auscultation Cardiovascular: Rate/Rhythm: regular rate and regular rhythm Gastrointestinal (Abdomen): Inspection/Auscultation: abdomen not distended Percussion/Palpation: abdomen soft; abdomen nontender Musculoskeletal: Head/Neck/Chest: normocephalic and head atraumatic negative for edema, peripheral pulses intact Skin: no rashes, warm and dry Neurologic: awake; not confused Speech / Cognition: normal speech Psychiatric: Orientation: oriented x 3 Affect: + depressed affect Results & Data Vital Signs (Past 12 Hours) Vital Signs Temp Pulse Pulse Resp BP BP Pulse Ox 08/13/19 12:21 81 18 121/65 97 08/13/19 11:16 100 08/13/19 10:24 36.5 C 84 18 108/68 100 Diagnostic Findings CXR: neg for PNA, noted for stable L nodule and a pleural based mass ECG Rhythm: normal sinus Code Status & VTE Plan Code Status DNR/DNI VTE Prophylaxis Plan VTE Prophylaxis will be ordered: Yes PG Care Time/CCT Total # of Minutes Spent Total Time Spent with Patient: Total time spent is greater than 50% in coordination of care (as documented) at patient's floor/unit and/or counseling patient: Coding Level of Care Code 48908 OBS Care - Level 3 Diagnoses Acute dehydration E86.0 Malignant neoplasm of upper-inner quadrant of left breast in female, estrogen receptor negative C50.212; Z17.1 Palliative care encounter Z51.5 Cancer related pain G89.3 Hypomagnesemia E83.42 Hypokalemia E87.6 Rosacea L71.9 DVT prophylaxis Z29.9
[2019-08-13 15:56] LABS: Appearance Urine Clear (Clear); Bacteria Urine Automated 1+ (Negative); Bilirubin Urine Negative (Negative); Blood Urine Negative (Negative); Color Urine Dark Yellow; Epithelial Cell Urine Auto >30 /lpf (0-5); Glucose Urine UA Negative (Negative); Ketones Urine Negative (Negative); Leukocyte Esterase Urine Negative (Negative); Nitrite Urine Negative (Negative); Protein Urine 1+ (Negative); Specific Gravity Urine 1.021 (1.000-1.030); Urobilinogen Urine Negative (Negative); pH Urine 5.5 (4.5-7.5)
[2019-08-13 16:09] LABS: RBC Urine Automated 0-4 /hpf (0-4)
[2019-08-13] MEDS ORDERED: NON-FORMULARY MEDICATION (Coenzyme Q10 [Co Q-10] 10 MG) PO SCH (16:40)
[2019-08-13] MEDS ORDERED: OXYCODONE HCL IR 5 MG TAB (IMMEDIATE RELEASE) PO PRN (16:40)
[2019-08-13] MEDS ORDERED: ACETAMINOPHEN 325 MG TAB PO PRN (16:40)
[2019-08-13] MEDS ORDERED: ONDANSETRON INJ 2 MG/ML 2 ML VIAL IV PRN (16:40)
[2019-08-13] MEDS ORDERED: ONDANSETRON 8MG OD TAB PO PRN (16:40)
[2019-08-13] MEDS ORDERED: MAGNESIUM HYDROXIDE SUSP 30 ML UDC PO PRN (16:40)
--- NOTE | 2019-08-13 16:48 | Electrocardiogram Report ---
Test Reason : Blood Pressure : / mmHG Vent. Rate : 071 BPM Atrial Rate : 071 BPM P-R Int : 196 ms QRS Dur : 094 ms QT Int : 422 ms P-R-T Axes : 061 062 065 degrees QTc Int : 458 ms Normal sinus rhythm Cannot rule out Anterior infarct (cited on or before 27-JUN-2019) Abnormal ECG When compared with ECG of 27-JUN-2019 18:29, No significant change Confirmed by Giovanni Marie ([id number]) on 08/13/2019 4:48:19 PM Referred By: Confirmed By:Giovanni Marie
[2019-08-13] MEDS: MAGNESIUM SULFATE / D5W 1 GM/100 ML BAG IV SCH ×2 (17:40→19:03)
[2019-08-13] MEDS: NSS + 20MEQ KCL 20 MEQ/1,000 ML BAG IV SCH (17:41)
[2019-08-13] MEDS: HEPARIN SOD 5,000 UNIT/0.5 ML VIAL SQ SCH ×2 (17:41→20:05)
[2019-08-13] MEDS: VITAMIN B COMPLEX TAB PO SCH (17:41)
[2019-08-13] MEDS: CALCIUM 600MG + VIT D 400 IU TAB PO SCH (17:41)
[2019-08-13] MEDS ORDERED: MoRPHine SULFATE 10 MG/0.5 ML UDP PO PRN (18:15)
[2019-08-13] MEDS: FLUTICASONE PROPIONATE NA SPR 16 GM BTL SCH (20:05)
[2019-08-13] MEDS: ACETAMINOPHEN 500 MG TAB PO SCH (20:05)
[2019-08-13] MEDS: DICLOFENAC SOD 1% GEL 100 GM TUBE EXT SCH (20:05)
[2019-08-13] MEDS ORDERED: CYANOCOBALAMIN 250 MCG PO SCH (21:00)
[2019-08-14] MEDS: HEPARIN SOD 5,000 UNIT/0.5 ML VIAL SQ SCH ×3 (05:59→20:54)
[2019-08-14 06:04] LABS: Basophils # (auto) 0.03 K/uL (0-0.2); Basophils % (auto) 0.7 %; Eosinophils # (auto) 0.03 K/uL (0-0.5); Eosinophils % (auto) 0.7 %; Hematocrit (blood only) 29.4 % (37-47); Hemoglobin 9.8 g/dL (12.0-16.0); Immature Granulocytes # (auto) 0.08 K/uL (0.00-0.02); Lymphocytes # (auto) 0.57 K/uL (1.2-3.4); Mean Corpuscular Hemoglobin 30.1 pg (25-34); Mean Corpuscular Hgb Conc 33.3 g/dL (32-36); Mean Corpuscular Volume 90.2 fL (80-100); Mean Platelet Volume 10.7 fL (7.4-10.4); Monocytes # (auto) 0.42 K/uL (0.11-0.59); Monocytes % (auto) 10.3 %; Neutrophils # (auto) 2.93 K/uL (1.4-6.5); Neutrophils % (auto) 72.3 %; Platelet Count 219 K/uL (130-400); RDW Coefficient of Variation 14.8 % (11.5-14.5); RDW Standard Deviation 47.2 fL (36.4-46.3); Red Blood Count 3.26 M/uL (4.2-5.4); White Blood Count 4.06 K/uL (4.8-10.8)
[2019-08-14 06:37] LABS: BUN Creatinine Ratio 39.2 (10-20); Calcium 7.8 mg/dl (8.5-10.1); Creatinine Clr Calc Pharmacy 45.9 ml/min; Est GFR (African American) 81.7; Est GFR (Non-African American) 70.5; Magnesium 2.2 mg/dl (1.8-2.4); Potassium 3.4 mmol/L (3.5-5.1)
[2019-08-14] MEDS: NSS + 20MEQ KCL 20 MEQ/1,000 ML BAG IV SCH ×3 (08:33→20:56)
[2019-08-14] MEDS: CALCIUM 600MG + VIT D 400 IU TAB PO SCH ×2 (08:33→17:47)
[2019-08-14] MEDS: LORATADINE 10 MG TAB PO SCH (08:33)
[2019-08-14] MEDS: FLUTICASONE PROPIONATE NA SPR 16 GM BTL SCH ×2 (08:34→20:54)
[2019-08-14] MEDS: ACETAMINOPHEN 500 MG TAB PO SCH ×2 (08:34→20:53)
[2019-08-14] MEDS: CEROVITE ADV FORMULA TAB PO SCH (08:34)
[2019-08-14] MEDS: DICLOFENAC SOD 1% GEL 100 GM TUBE EXT SCH ×5 (08:35→20:54)
[2019-08-14] MEDS ORDERED: SODIUM CHLORIDE 0.65% NA SOLN 45 ML (OCEAN) ONE (08:46)
[2019-08-14] MEDS ORDERED: NON-FORMULARY MEDICATION (Biotin 5 MG) PO SCH (09:00)
[2019-08-14] MEDS ORDERED: POTASSIUM PHOS 3 MMOL/1 ML INFUSION IV STA (09:52)
[2019-08-14] MEDS ORDERED: POTASSIUM PHOSPHATE 21 MMOL in SODIUM CHLORIDE 0.9% 500 ML IV ONE (10:30)
[2019-08-14] MEDS ORDERED: NON-FORMULARY MEDICATION (Cranberry Conc-Ascorbic Acid 1 CAP) PO SCH (11:30)
--- NOTE | 2019-08-14 14:16 | Hospitalist Progress Note ---
Date of Service August 14, 2019 Assessment & Plan (1) Acute dehydration: Normal Dennis is an 89y/o F with metastatic breast cancer, being treated with chemotherapy (last Tx on 08/03), who has had worsening of chronic diarrhea since last treatment with the development of nausea/vomiting, and subsequent dehydration Acute dehydration with increased ostomy output, nausea, vomiting likely due to chemo side effect: - clinically dehydrated, likely related to poor PO intake with increased nausea, vomiting, and diarrhea - Stool cx/C. difficile pending - Blood cx pending - continue IV fluid replacement - continue with electrolyte repletion as needed Malignant neoplasm of breast: - Follows with Dr. Dowling; Last chemo was 08/03 (tx #3); multiple mets sites - will consult Dr. Dowling for further discussion with patient regarding utility of chemotherapy at this point Palliative care: - Seen by palliative team on last admission; set up with home hospice, however declined services upon arrival to house in favor of trial of chemotherapy - after recent difficulties with chemotherapy, patient is now open again to discussing hospice services - will consult palliative Cancer related pain: - continue home meds Rosacea: - continue Minocycline Diet: Full liquids, Advance diet as tolerated DVT ppx: SQ heparin Code: DNR/DNI (2) Malignant neoplasm of upper-inner quadrant of left breast in female, estrogen receptor negative: (3) Palliative care encounter: (4) Cancer related pain: (5) Hypomagnesemia: (6) Hypokalemia: (7) Rosacea: Admission and Anticipated Discharge Date Admission Date: August 13, 2019 Supervising Physician Co-Signing Physician Notes Resident Physician Supervision Note: I independently interviewed and examined the patient and verified the amado history and physical, reviewed labs and image studies, discussed the case with the resident Dr. Tolbert and agree with the findings and care plan. Subjective Patient continues to feel profound weakness, and feels like this recent increased amount of diarrheal output is just too much and has sent her over the edge. Admits that last time she was here, and set-up with home hospice that when she got home, and they discussed that she could not do the form of chemotherapy that she was aiming to start, that she declined their services as she wanted to see if this chemotherapy would provide her with increased benefit/improvement. At this point in time, she is open to their services again but remains concerned about how that will practically happen given her previous experiences with hospice when her was terminally ill. Over night, has had continued increased diarrheal output, with redevelopement of nausea and vomiting during the day today. She is still feeling the persistent lower abdominal pain that started about the same time as she had worsening of her nausea/vomiting and diarrhea Review of Systems Review of Systems: All systems reviewed & are unremarkable except as noted in Subjective Physical Exam Constitutional: well developed and + thin Eyes: PERRL, conjunctivae normal, anicteric sclerae Respiratory: normal respiratory effort, lungs clear to auscultation Cardiovascular: Rate/Rhythm: regular rate and regular rhythm Heart Sounds: normal S1 and normal S2; no gallop, no murmur and no cardiac rub Gastrointestinal (Abdomen): Inspection/Auscultation: abdomen not distended Percussion/Palpation: + abdomen tender (whole field) and abdomen soft; no guarding and abdomen not rigid ostomy site without erythema; output mucinous white discharge not fecal matter in ostomy bag Musculoskeletal: strength 3/5 in all extremities Neurologic: no focal neurologic deficits Results & Data ([facility]) Vital Signs (Past 12 Hours) Vital Signs Temp Pulse Resp BP BP Pulse Ox 08/14/19 08:33 36.8 C 75 18 139/77 97 08/14/19 04:00 36.5 C 73 17 135/78 99 Laboratory Results 08/14/19 08/14/19 08/13/19 Range/Units 05:42 05:42 15:32 WBC 4.06 L (4.8-10.8) K/uL RBC 3.26 L (4.2-5.4) M/uL Hgb 9.8 L (12.0-16.0) g/dL Hct 29.4 L (37-47) % MCV 90.2 (80-100) fL MCH 30.1 (25-34) pg MCHC 33.3 (32-36) g/dL RDW Std Deviation 47.2 H (36.4-46.3) fL RDW Coeff of Spencer 14.8 H (11.5-14.5) % Plt Count 219 (130-400) K/uL MPV 10.7 H (7.4-10.4) fL Immature Gran % (Auto) 2.0 % Neut % (Auto) 72.3 % Lymph % (Auto) 14.0 % [place]ern % (Auto) 10.3 % Eos % (Auto) 0.7 % Baso % (Auto) 0.7 % Immature Gran # (Auto) 0.08 H (0.00-0.02) K/uL Neut # (Auto) 2.93 (1.4-6.5) K/uL Lymph # (Auto) 0.57 L (1.2-3.4) K/uL Kern # (Auto) 0.42 (0.11-0.59) K/uL Eos # (Auto) 0.03 (0-0.5) K/uL Baso # (Auto) 0.03 (0-0.2) K/uL Sodium 144 (136-145) mmol/L Potassium 3.4 L (3.5-5.1) mmol/L Chloride 122 H (98-107) mmol/L Carbon Dioxide 16 L (21-32) mmol/L Anion Gap 6.0 (3-11) BUN 30 H (7-18) mg/dl Creatinine 0.76 D (0.6-1.2) mg/dl Est Cr Clr Drug Dosing 45.9 ml/min Est GFR ( Amer) 81.7 Est GFR (Non-Af Amer) 70.5 BUN/Creatinine Ratio 39.2 H (10-20) Glucose 97 (70-99) mg/dl Calcium 7.8 L (8.5-10.1) mg/dl Phosphorus 2.0 L (2.5-4.9) mg/dl Magnesium 2.2 (1.8-2.4) mg/dl Urine Color Dark Yellow Urine Appearance Clear (Clear) Urine pH 5.5 (4.5-7.5) Ur Specific [place] 1.021 (1.000-1.030) Urine Protein 1+ H (Negative) Urine Glucose (UA) Negative (Negative) Urine Ketones Negative (Negative) Urine Blood Negative (Negative) Urine Nitrite Negative (Negative) Urine Bilirubin Negative (Negative) Urine Urobilinogen Negative (Negative) Ur Leukocyte Esterase Negative (Negative) Urine WBC (Auto) 5-10 H (0-5) /hpf Urine RBC (Auto) 0-4 (0-4) /hpf U Hyaline Cast (Auto) 10-30 H (0-5) /lpf U Epithel Cells (Auto) >30 H (0-5) /lpf Urine Bacteria (Auto) 1+ H (Negative) Ur Renal Epithelial Cell 5-10 H (0-5) /lpf Urine Yeast Not Reportable Medications Administered Current Inpatient Medications Acetaminophen (Tylenol) 500 mg PO BID [facility] Stop: 09/12/19 20:59 Last Admin: 08/14/19 08:34 Dose: 500 mg Documented by: Acetaminophen (Tylenol) 650 mg PO Q4H PRN PRN Reason: pain/fever Stop: 09/12/19 16:39 Diclofenac Sodium (Voltaren 1% Top) 4 gm EXT QID [facility] Stop: 09/12/19 20:59 Last Admin: 08/14/19 10:55 Dose: Not Given Documented by: Ergocalciferol (Vitamin D2) 50,000 units PO TUTH [facility] Stop: 09/16/19 13:31 Fluticasone Propionate (Flonase) 1 sprays NA BID [facility] Stop: 09/12/19 20:59 Last Admin: 08/14/19 08:34 Dose: 1 sprays Documented by: Heparin Sodium (Porcine) (Heparin Sodium (Porcine)) 5,000 units SQ Q8 [facility] Stop: 09/12/19 16:39 Last Admin: 08/14/19 05:59 Dose: 5,000 units Documented by: Heparin Sodium (Porcine) (Heparin Sod 100 Unit/Ml Flush) 5 ml FLUSH PRN PRN PRN Reason: Flush Stop: 09/13/19 02:44 Potassium Chloride/Sodium Chloride (Normal Saline W/20 Meq Kcl) 20 meq in 1,000 mls @ 80 mls/hr IV .[id number] [facility] Stop: 09/12/19 16:59 Last Admin: 08/14/19 08:33 Dose: 80 mls/hr Documented by: Potassium Phosphate 21 mmol/ (Sodium Chloride) 507 mls @ 88 mls/hr IV ONE ONE Stop: 08/14/19 16:15 Last Admin: 08/14/19 10:53 Dose: 88 mls/hr Documented by: Lactobacillus Acidophilus (Floranex) 4 tab PO QDD [facility] Stop: 09/13/19 16:29 Loratadine (Claritin) 10 mg PO DAILY [facility] Stop: 09/13/19 08:59 Last Admin: 08/14/19 08:33 Dose: 10 mg Documented by: Magnesium Hydroxide (Milk Of Magnesia) 30 ml PO Q6H PRN PRN Reason: Constipation Stop: 09/12/19 16:39 Miscellaneous (Order Awaiting Action) 1 ea N/A QS [facility] Stop: 09/13/19 00:00 Last Admin: 08/14/19 08:37 Dose: Not Given Documented by: Miscellaneous (Order Awaiting Action) 1 ea N/A QS [facility] Stop: 09/13/19 00:00 Last Admin: 08/14/19 08:37 Dose: Not Given Documented by: Morphine Sulfate (Roxanol) 10 mg PO Q4H PRN PRN Reason: Pain Stop: 08/27/19 18:14 Multivitamins/Minerals (Caltrate Plus) 1 tab PO BIDM [facility] Stop: 09/12/19 16:59 Last Admin: 08/14/19 08:33 Dose: 1 tab Documented by: Multivitamins/Minerals (Multivitamin W/ Minerals Tab) 1 tab PO QAM [facility] Stop: 09/13/19 08:59 Last Admin: 08/14/19 08:34 Dose: 1 tab Documented by: Ondansetron HCl (Zofran Odt) 8 mg PO Q8H PRN PRN Reason: Nausea And Vomiting Ondansetron HCl (Zofran) 4 mg IV Q6H PRN PRN Reason: Nausea Stop: 09/12/19 16:39 Oxycodone HCl (Roxicodone Immediate Rel) 5 - 10 mg PO Q4H PRN PRN Reason: Pain Stop: 08/27/19 16:39 Vitamin B Complex (Vitamin B Complex) 1 tab PO QDD [facility] Stop: 09/12/19 16:39 Last Admin: 08/13/19 17:41 Dose: 1 tab Documented by: Resident Activity Tracking Resident Involvement: Resident Care Provided Care Provided: Adult Hospital Medicine
[2019-08-14] MEDS: VITAMIN B COMPLEX TAB PO SCH (17:47)
[2019-08-14] MEDS: LACTOBACILLUS ACIDOPHILUS (FLORANEX) TAB PO SCH (17:47)
[2019-08-15 05:56] LABS: Basophils # (auto) 0.02 K/uL (0-0.2); Basophils % (auto) 0.6 %; Eosinophils # (auto) 0.03 K/uL (0-0.5); Eosinophils % (auto) 0.8 %; Hematocrit (blood only) 28.8 % (37-47); Hemoglobin 9.8 g/dL (12.0-16.0); Immature Granulocytes # (auto) 0.08 K/uL (0.00-0.02); Immature Granulocytes % (auto) 2.2 %; Lymphocytes # (auto) 0.63 K/uL (1.2-3.4); Lymphocytes % (auto) 17.4 %; Mean Corpuscular Hemoglobin 30.3 pg (25-34); Mean Corpuscular Volume 89.2 fL (80-100); Mean Platelet Volume 10.3 fL (7.4-10.4); Monocytes # (auto) 0.61 K/uL (0.11-0.59); Monocytes % (auto) 16.9 %; Neutrophils # (auto) 2.25 K/uL (1.4-6.5); Neutrophils % (auto) 62.1 %; Platelet Count 209 K/uL (130-400); RDW Coefficient of Variation 15.2 % (11.5-14.5); RDW Standard Deviation 47.9 fL (36.4-46.3); Red Blood Count 3.23 M/uL (4.2-5.4); White Blood Count 3.62 K/uL (4.8-10.8)
[2019-08-15] MEDS: HEPARIN SOD 5,000 UNIT/0.5 ML VIAL SQ SCH ×3 (06:33→20:05)
[2019-08-15 06:50] LABS: BUN Creatinine Ratio 20.8 (10-20); Calcium 7.6 mg/dl (8.5-10.1); Creatinine Clr Calc Pharmacy 54.9 ml/min; Est GFR (African American) 92.5; Est GFR (Non-African American) 79.8; Magnesium 1.9 mg/dl (1.8-2.4); Phosphorus 2.1 mg/dl (2.5-4.9); Potassium 3.4 mmol/L (3.5-5.1)
[2019-08-15] MEDS ORDERED: POTASSIUM PHOS 3 MMOL/1 ML INFUSION IV STA (08:28)
[2019-08-15] MEDS: NSS + 20MEQ KCL 20 MEQ/1,000 ML BAG IV SCH ×2 (08:49→20:05)
[2019-08-15] MEDS: DICLOFENAC SOD 1% GEL 100 GM TUBE EXT SCH ×4 (08:50→20:06)
[2019-08-15] MEDS: ACETAMINOPHEN 500 MG TAB PO SCH ×2 (08:50→20:06)
[2019-08-15] MEDS: CEROVITE ADV FORMULA TAB PO SCH (08:50)
[2019-08-15] MEDS: LORATADINE 10 MG TAB PO SCH (08:50)
[2019-08-15] MEDS: CALCIUM 600MG + VIT D 400 IU TAB PO SCH ×2 (08:50→16:15)
[2019-08-15] MEDS: FLUTICASONE PROPIONATE NA SPR 16 GM BTL SCH ×2 (08:53→20:06)
[2019-08-15] MEDS ORDERED: POTASSIUM PHOSPHATE 30 MMOL in SODIUM CHLORIDE 0.9% 500 ML IV ONE (09:00)
--- NOTE | 2019-08-15 12:52 | Hospitalist Progress Note ---
Date of Service August 15, 2019 Assessment & Plan (1) Acute dehydration: Normal Dennis is an 89y/o F with metastatic breast cancer, being treated with chemotherapy (last Tx on 08/03), who has had worsening of chronic diarrhea since last treatment with the development of nausea/vomiting, and subsequent dehydration Acute dehydration secondary to ?chemo side effects: - clinically dehydrated, likely related to poor PO intake with increased nausea, vomiting, and diarrhea - Stool cx NG@24hrs - C. difficile negative - Blood cx NG@24hrs - continue IV fluid replacement - continue with electrolyte repletion as needed - tolerating oral intake well. await oncology input with residential goals. Malignant neoplasm of breast: - Follows with Dr. Dowling; Last chemo was 08/03 (tx #3); multiple mets sites - will consult Dr. Dowling for further discussion with patient regarding utility of chemotherapy at this point Palliative care: - Seen by palliative team on last admission; set up with home hospice, however declined services upon arrival to house in favor of trial of chemotherapy - after recent difficulties with chemotherapy, patient is now open again to discussing hospice services - will consult palliative Cancer related pain: - continue home meds Rosacea: - continue Minocycline Diet: Regular DVT ppx: SQ heparin Code: DNR/DNI Admission and Anticipated Discharge Date Admission Date: August 15, 2019 Supervising Physician Co-Signing Physician Notes Resident Physician Supervision Note: I independently interviewed and examined the patient and verified the amado history and physical, reviewed labs and image studies, discussed the case with the resident Dr. Tolbert and agree with the findings and care plan. Subjective Last night had a large episode of incontinence, that relieved a majority of the discomfort that she had been feeling in her lower abdomen. Now feels like the bowel movements have slowed down, and the pain has not returned; however, these have remained a bright orange that is consistent over the last week, but new to her overall loose bowel movements. Review of Systems Review of Systems: All systems reviewed & are unremarkable except as noted in Subjective Physical Exam Constitutional: well developed and + thin Eyes: PERRL, conjunctivae normal, anicteric sclerae Respiratory: normal respiratory effort, lungs clear to auscultation Cardiovascular: Rate/Rhythm: regular rate and regular rhythm Heart Sounds: normal S1 and normal S2; no gallop, no murmur and no cardiac rub Gastrointestinal (Abdomen): Inspection/Auscultation: abdomen not distended Percussion/Palpation: abdomen soft; abdomen nontender and no guarding Results & Data ([facility]) Vital Signs (Past 12 Hours) Vital Signs Temp Pulse Resp BP BP Pulse Ox 08/15/19 11:07 36.5 C 72 18 136/87 99 08/15/19 07:10 36.5 C 66 18 131/79 99 08/15/19 04:36 36.7 C 60 18 99/60 L 99 Laboratory Results 08/15/19 08/15/19 08/14/19 Range/Units 05:35 05:35 15:30 WBC 3.62 L (4.8-10.8) K/uL RBC 3.23 L (4.2-5.4) M/uL Hgb 9.8 L (12.0-16.0) g/dL Hct 28.8 L (37-47) % MCV 89.2 (80-100) fL MCH 30.3 (25-34) pg MCHC 34.0 (32-36) g/dL RDW Std Deviation 47.9 H (36.4-46.3) fL RDW Coeff of Spencer 15.2 H (11.5-14.5) % Plt Count 209 (130-400) K/uL MPV 10.3 (7.4-10.4) fL Immature Gran % (Auto) 2.2 % Neut % (Auto) 62.1 % Lymph % (Auto) 17.4 % Dickson % (Auto) 16.9 % Eos % (Auto) 0.8 % Baso % (Auto) 0.6 % Immature Gran # (Auto) 0.08 H (0.00-0.02) K/uL Neut # (Auto) 2.25 (1.4-6.5) K/uL Lymph # (Auto) 0.63 L (1.2-3.4) K/uL Dickson # (Auto) 0.61 H (0.11-0.59) K/uL Eos # (Auto) 0.03 (0-0.5) K/uL Baso # (Auto) 0.02 (0-0.2) K/uL Sodium 145 (136-145) mmol/L Potassium 3.4 L (3.5-5.1) mmol/L Chloride 123 H (98-107) mmol/L Carbon Dioxide 16 L (21-32) mmol/L Anion Gap 6.0 (3-11) BUN 13 D (7-18) mg/dl Creatinine 0.65 (0.6-1.2) mg/dl Est Cr Clr Drug Dosing 54.9 ml/min Est GFR ( Amer) 92.5 Est GFR (Non-Af Amer) 79.8 BUN/Creatinine Ratio 20.8 H (10-20) Glucose 88 (70-99) mg/dl Calcium 7.6 L (8.5-10.1) mg/dl Phosphorus 2.1 L (2.5-4.9) mg/dl Magnesium 1.9 (1.8-2.4) mg/dl Stl C. diff Tox B Gene Negative Cdiff Gene (Neg) Medications Administered Current Inpatient Medications Acetaminophen (Tylenol) 500 mg PO BID [facility], [facility]1983 Stop: 09/12/19 20:59 Last Admin: 08/15/19 08:50 Dose: 500 mg Documented by: Acetaminophen (Tylenol) 650 mg PO Q4H PRN PRN Reason: pain/fever Stop: 09/12/19 16:39 Diclofenac Sodium (Voltaren 1% Top) 4 gm EXT QID KELLI Stop: 09/12/19 20:59 Last Admin: 08/15/19 11:13 Dose: Not Given Documented by: Ergocalciferol (Vitamin D2) 50,000 units PO TUTH [facility]1983 Stop: 09/16/19 13:31 Fluticasone Propionate (Flonase) 1 sprays NA BID KELLI Stop: 09/12/19 20:59 Last Admin: 08/15/19 08:53 Dose: Not Given Documented by: Heparin Sodium (Porcine) (Heparin Sodium (Porcine)) 5,000 units SQ Q8 KELLI Stop: 09/12/19 16:39 Last Admin: 08/15/19 06:33 Dose: Not Given Documented by: Heparin Sodium (Porcine) (Heparin Sod 100 Unit/Ml Flush) 5 ml FLUSH PRN PRN PRN Reason: Flush Stop: 09/13/19 02:44 Potassium Chloride/Sodium Chloride (Normal Saline W/20 Meq Kcl) 20 meq in 1,000 mls @ 80 mls/hr IV .[id number] KELLI Stop: 09/12/19 16:59 Last Admin: 08/15/19 08:49 Dose: 80 mls/hr Documented by: Potassium Phosphate 30 mmol/ (Sodium Chloride) 510 mls @ 88 mls/hr IV ONE ONE Stop: 08/15/19 14:47 Last Admin: 08/15/19 09:11 Dose: 88 mls/hr Documented by: Lactobacillus Acidophilus (Floranex) 4 tab PO QDD [facility] Stop: 09/13/19 16:29 Last Admin: 08/14/19 17:47 Dose: 4 tab Documented by: Loratadine (Claritin) 10 mg PO DAILY [facility] Stop: 09/13/19 08:59 Last Admin: 08/15/19 08:50 Dose: 10 mg Documented by: Magnesium Hydroxide (Milk Of Magnesia) 30 ml PO Q6H PRN PRN Reason: Constipation Stop: 09/12/19 16:39 Miscellaneous (Order Awaiting Action) 1 ea N/A QS [facility] Stop: 09/13/19 00:00 Last Admin: 08/15/19 08:52 Dose: Not Given Documented by: Miscellaneous (Order Awaiting Action) 1 ea N/A QS [facility] Stop: 09/13/19 00:00 Last Admin: 08/15/19 08:52 Dose: Not Given Documented by: Morphine Sulfate (Roxanol) 10 mg PO Q4H PRN PRN Reason: Pain Stop: 08/27/19 18:14 Multivitamins/Minerals (Caltrate Plus) 1 tab PO BIDM [facility] Stop: 09/12/19 16:59 Last Admin: 08/15/19 08:50 Dose: 1 tab Documented by: Multivitamins/Minerals (Multivitamin W/ Minerals Tab) 1 tab PO QAM [facility] Stop: 09/13/19 08:59 Last Admin: 08/15/19 08:50 Dose: 1 tab Documented by: Ondansetron HCl (Zofran Odt) 8 mg PO Q8H PRN PRN Reason: Nausea And Vomiting Ondansetron HCl (Zofran) 4 mg IV Q6H PRN PRN Reason: Nausea Stop: 09/12/19 16:39 Last Admin: 08/15/19 09:11 Dose: 4 mg Documented by: Oxycodone HCl (Roxicodone Immediate Rel) 5 - 10 mg PO Q4H PRN PRN Reason: Pain Stop: 08/27/19 16:39 Vitamin B Complex (Vitamin B Complex) 1 tab PO QDD KELLI Stop: 09/12/19 16:39 Last Admin: 08/14/19 17:47 Dose: 1 tab Documented by: Resident Activity Tracking Resident Involvement: Resident Care Provided Care Provided: Adult Hospital Medicine
[2019-08-15] MEDS: VITAMIN B COMPLEX TAB PO SCH (16:15)
[2019-08-15] MEDS: LACTOBACILLUS ACIDOPHILUS (FLORANEX) TAB PO SCH (16:15)
[2019-08-16] MEDS: HEPARIN SOD 5,000 UNIT/0.5 ML VIAL SQ SCH ×3 (05:38→20:44)
[2019-08-16 05:39] LABS: Basophils # (auto) 0.01 K/uL (0-0.2); Basophils % (auto) 0.3 %; Eosinophils # (auto) 0.03 K/uL (0-0.5); Eosinophils % (auto) 0.8 %; Hematocrit (blood only) 29.3 % (37-47); Hemoglobin 9.8 g/dL (12.0-16.0); Immature Granulocytes % (auto) 2.5 %; Lymphocytes # (auto) 0.66 K/uL (1.2-3.4); Lymphocytes % (auto) 16.6 %; Mean Corpuscular Hgb Conc 33.4 g/dL (32-36); Mean Corpuscular Volume 89.6 fL (80-100); Mean Platelet Volume 10.3 fL (7.4-10.4); Monocytes # (auto) 0.72 K/uL (0.11-0.59); Monocytes % (auto) 18.1 %; Neutrophils # (auto) 2.46 K/uL (1.4-6.5); Neutrophils % (auto) 61.7 %; Platelet Count 211 K/uL (130-400); RDW Coefficient of Variation 15.2 % (11.5-14.5); RDW Standard Deviation 48.2 fL (36.4-46.3); Red Blood Count 3.27 M/uL (4.2-5.4); White Blood Count 3.98 K/uL (4.8-10.8)
[2019-08-16 06:02] LABS: BUN Creatinine Ratio 15.4 (10-20); Calcium 7.6 mg/dl (8.5-10.1); Creatinine Clr Calc Pharmacy 54.9 ml/min; Est GFR (African American) 92.5; Est GFR (Non-African American) 79.8; Magnesium 1.7 mg/dl (1.8-2.4); Potassium 3.8 mmol/L (3.5-5.1)
[2019-08-16 06:03] LABS: Phosphorus 1.9 mg/dl (2.5-4.9)
[2019-08-16] MEDS ORDERED: POTASSIUM PHOS 3 MMOL/1 ML INFUSION IV STA (06:37)
[2019-08-16] MEDS ORDERED: POTASSIUM PHOSPHATE 21 MMOL in SODIUM CHLORIDE 0.9% 500 ML IV SCH (07:00)
[2019-08-16] MEDS: MAGNESIUM SULFATE / D5W 1 GM/100 ML BAG IV SCH ×2 (07:18→08:09)
[2019-08-16] MEDS: NSS + 20MEQ KCL 20 MEQ/1,000 ML BAG IV SCH ×2 (08:09→20:44)
[2019-08-16] MEDS: FLUTICASONE PROPIONATE NA SPR 16 GM BTL SCH ×3 (08:11→20:49)
[2019-08-16] MEDS: DICLOFENAC SOD 1% GEL 100 GM TUBE EXT SCH ×4 (08:12→20:39)
[2019-08-16] MEDS: CEROVITE ADV FORMULA TAB PO SCH (08:13)
[2019-08-16] MEDS: ACETAMINOPHEN 500 MG TAB PO SCH ×2 (08:13→20:44)
[2019-08-16] MEDS: CALCIUM 600MG + VIT D 400 IU TAB PO SCH ×2 (08:13→16:41)
[2019-08-16] MEDS: LORATADINE 10 MG TAB PO SCH (08:13)
--- NOTE | 2019-08-16 11:47 | Hospitalist Progress Note ---
Date of Service August 16, 2019 Assessment & Plan (1) Acute dehydration: Kate Collins is an 89y/o F with metastatic breast cancer, currently undergoing chemotherapy (last Tx on 08/03), admitted on 08/12 for acute worsening of chronic diarrhea, nausea/vomiting, and subsequent dehydration. Acute dehydration - likely secondary to volume loss (voluminous diarrhea, vomiting) stemming from most recent chemo infusion 08/04/19 - continue IV fluid resuscitation and electrolyte replacement as needed - Follow BMP, Mag and Phos daily Acute on Chronic Diarrhea - persistently voluminous - patient has history of short gut syndrome - C. difficile negative - stool cultures no growth to date - acute flare likely secondary to recent chemo - ordered supplemental fiber and Imodium in an effort to bulk stool and slow BMs - will consider cholestyramine if the above regimen is ineffective Nausea - likely secondary to chemo - patient is tolerating oral intake well - Zofran ordered prn Malignant neoplasm of breast: - Estrogen Receptor negative breast cancer with multiple metastatic sites - Follows with Dr. Dowling; currently undergoing chemo - most recent infusion 08/03 (tx #3) - per conversation with Dr. Dowling, upcoming chemo infusions canceled Palliative care: - patient met with palliative team on last admission in 06/2019. She was set up with home hospice, upon discharge, however patient declined services upon arrival to house in favor of trial of chemotherapy - she expresses wishes to at bedside today - case management on-board; working to set patient up with increased home health services (7 days per week rather than 5, along with additional hours) who have hospice capabilities Cancer related pain: - continue home oxycodone and morphine Rosacea: - continue home Minocycline Diet: Regular DVT ppx: heparin, 5,000, units, SQ, q8h Code: DNR/DNI Dispo: MedSurg; PT/OT ordered Admission and Anticipated Discharge Date Admission Date: August 15, 2019 Supervising Physician Co-Signing Physician Notes I personally examined the patient and verified all amado points of history and exam, discussed case, and agree with decision making with Dr Byrnes. feeling bad w diarrhea - still frequent, explosive, incontinent. "i just want to " - when asked how she would ideally have the end of her life play out she notes "I'd just right now and be done with it" -- before we could delve further into how we can help her with end of life planning/hospice/goals/etc she had fecal incontinence and we had to allow her to get changed. revisited later - still ongoing diarrhea. vitals noted fatigued and upset, heent nc at mmm breathing unlabored no accessory muscles good effort skin no rashes no pallor or icterus toxic gastroenteritis / diarrhea from chemo / metabolic acidosis from diarrhea - continue fluids until diarrhea slows. since does not appear infectious, and has chemo related diarrhea and short gut - trial of fiber and loperamide. supportive care goals of care - loosely able to start discussions - goal appearing most likely home w hospice once diarrhea controlled, will need to elucidate further when she is better able to converse. otherwise as above Subjective Patient with persistent voluminous diarrhea. Stool is vibrant orange in color. Struggling to make it to bedside commode in time. Patient reports that she wishes to . She says that she has comfort keepers arranged in her home M-F from 8am -12noon. She has a biological adult son who lives 800 miles away in [place]. She has an adopted daughter who lives 2.5 hours away who is having "family trouble of her own." Additionally she has an adopted daughter who lives in a separate unit in the same apartment building as herself - Mrs. Collins pays most of her bills because she "has schizophrenia and cannot work." She reports turning down home hospice services after her previous hospital stay because of her perceived utility of the hospice nurses: ie "they would only take vitals 3 times per week and grape picker my medicines." Review of Systems Constitutional: + weakness Gastrointestinal: + diarrhea/loose stools (Voluminous, orange-colored stools) Physical Exam Constitutional: + ill appearing, + frail appearing and cooperative Eyes: + anicteric sclerae ENMT: external ear and nose normal, oropharynx normal Neck: normal visual inspection and trachea midline Respiratory: normal respiratory effort, lungs clear to auscultation Cardiovascular: RRR, no murmur, no edema Heart Sounds: normal S1 and normal S2 Chest (Breasts): Chest: + vascular access device or port (chemo port, R side of chest) Gastrointestinal (Abdomen): normal bowel sounds, soft, nontender, no hepatosplenomegaly + colostomy bag in place draining mucous + well healed scars consistent with prior bowel surgery Skin: no rashes, warm and dry Psychiatric: A+Ox3, euthymic affect Results & Data ([facility]) Vital Signs (Past 12 Hours) Vital Signs Temp Pulse Resp BP BP Pulse Ox 08/16/19 07:14 37.0 C 66 18 139/82 98 08/16/19 04:00 36.5 C 69 18 125/74 95 08/15/19 23:41 36.9 C 71 18 117/65 97 Resident Activity Tracking Resident Involvement: Resident Care Provided Care Provided: Adult Hospital Medicine
[2019-08-16] MEDS: PSYLLIUM 58.6% POWDER PACKET PO SCH (12:32)
[2019-08-16] MEDS: LOPERAMIDE HCL 2 MG CAP PO PRN ×4 (12:32→20:44)
[2019-08-16] MEDS: LACTOBACILLUS ACIDOPHILUS (FLORANEX) TAB PO SCH (16:41)
[2019-08-16] MEDS: VITAMIN B COMPLEX TAB PO SCH (16:41)
--- NOTE | 2019-08-16 17:46 | Billing Data ---
Date of Service August 16, 2019 Coding Level of Care Code 02757 Subseq Hosp Care Lvl 3
[2019-08-16] MEDS: HEPARIN 100 UNIT/ML 5ML FLUSH FLUSH PRN (20:53)
[2019-08-17] MEDS: HEPARIN SOD 5,000 UNIT/0.5 ML VIAL SQ SCH (05:17)
[2019-08-17 07:00] LABS: BUN Creatinine Ratio 10.8 (10-20); Calcium 7.7 mg/dl (8.5-10.1); Creatinine Clr Calc Pharmacy 61.5 ml/min; Est GFR (African American) 96.1; Est GFR (Non-African American) 82.9; Potassium 3.6 mmol/L (3.5-5.1)
[2019-08-17] MEDS: LOPERAMIDE HCL 2 MG CAP PO SCH ×9 (07:40→22:24)
[2019-08-17] MEDS: CALCIUM 600MG + VIT D 400 IU TAB PO SCH ×2 (08:33→16:19)
[2019-08-17] MEDS: CEROVITE ADV FORMULA TAB PO SCH (08:34)
[2019-08-17] MEDS: NSS + 20MEQ KCL 20 MEQ/1,000 ML BAG IV SCH ×2 (08:34→20:59)
[2019-08-17] MEDS: LORATADINE 10 MG TAB PO SCH (08:34)
[2019-08-17] MEDS: PSYLLIUM 58.6% POWDER PACKET PO SCH (08:34)
[2019-08-17] MEDS: FLUTICASONE PROPIONATE NA SPR 16 GM BTL SCH ×2 (08:34→20:58)
[2019-08-17] MEDS: DICLOFENAC SOD 1% GEL 100 GM TUBE EXT SCH ×4 (08:35→20:58)
[2019-08-17] MEDS: ACETAMINOPHEN 500 MG TAB PO SCH ×2 (08:35→20:58)
[2019-08-17] MEDS ORDERED: SODIUM PHOSPHATE 3 MMOL/1 ML INFUSION IV STA (12:34)
[2019-08-17] MEDS ORDERED: SODIUM PHOSPHATE 15 MMOL in SODIUM CHLORIDE 0.9% 250 ML IV ONE (12:45)
--- NOTE | 2019-08-17 13:09 | Hospitalist Progress Note ---
Date of Service August 17, 2019 Assessment & Plan (1) Acute dehydration: Kate Collins is an 89y/o F with metastatic breast cancer, currently undergoing chemotherapy (last Tx on 08/03), admitted on 08/12 for acute worsening of chronic diarrhea, nausea/vomiting, and subsequent dehydration. Acute dehydration - likely secondary to volume loss (voluminous diarrhea, vomiting) stemming from most recent chemo infusion 08/04/19 - continue IV fluid resuscitation and electrolyte replacement as needed - Follow BMP, Mag and Phos daily Acute on Chronic Diarrhea - persistently voluminous - patient has history of short gut syndrome - C. difficile negative - stool cultures no growth to date - acute flare likely secondary to recent chemo (toxin induced) - ordered supplemental fiber and Imodium in an effort to bulk stool and slow BMs - will consider cholestyramine if the above regimen is ineffective Nausea - likely secondary to chemo - patient is tolerating oral intake well - Zofran ordered prn Malignant neoplasm of breast: - Estrogen Receptor negative breast cancer with multiple metastatic sites - Follows with Dr. Dowling; currently undergoing chemo - most recent infusion 08/03 (tx #3) - per conversation with Dr. Dowling, remaining chemo infusions canceled Palliative care: - patient met with palliative team on last admission in 06/2019. 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 Conversation revealed some internal disconnect - in one breath Mrs. Collins states she would like to today, and the next moment she reports an attitude of "never give up." Ultimately, she expresses interest in returning home and remaining comfortable without suffering from chemotherapy side effects and subsequent hospitalizations - case management on-board; working to set patient up with increased home health services with PT/OT and who have hospice capabilities - patient intends to arrange for increased assistance from comfort keepers (7 days per week rather than 5, along with additional hours) Cancer related pain: - continue home oxycodone and morphine Rosacea: - continue home Minocycline Diet: Regular DVT ppx: d/c DVT ppx at this time consider care goals Code: DNR/DNI Dispo: MedSurg; patient will return home once diarrhea is slowed Admission and Anticipated Discharge Date Admission Date: August 15, 2019 Supervising Physician Co-Signing Physician Notes I personally examined the patient and verified all amado points of history and exam, discussed case, and agree with decision making with Dr Byrnes. diarrhea improving, still occassional incontinence but not really any worse than before admission. overall diarrhea is slowing. discussed home - would like to go home. while seems to have disparate short term goals ("I just want to " "i want to eat and get back on my treadmill and get stronger") when we discuss these goals in depth she really does understand that she is dying from this cancer, really does not want further chemo, does express concern that she would be letting her PCP down if she stops chemo and discusses generational ideas about never quitting and that stopping treatment can mean giving up as reasons why she may feel so concerned about the emotional ramifications of quitting chemo - however, she notes appreciation that dr carpenter does not want to treat her further at this time and appreciation at my expression that further chemo may actually kill her sooner than the cancer. she also expresses generally not wanting to come back to the hospital (although more in a vague way than a true "avoid coming back at all costs" mentality). can increase caregiver support. wants to go home tomorrow. eating OK. diarrhea slowed enough she thinks it's manageable. vitals awake alert and interactive, heent nc at mmm breathing unlabored no accessory muscles good effort skin no rashes no pallor or icterus toxic gastroenteritis / diarrhea from chemo / metabolic acidosis from diarrhea - short gut + chemo - doing better on loperamide and fiber. continue for now - as she gets further removed from chemo can maybe wean. improving. stop fluids. goals of care - ok with dying. seemed to need permission to stop chemo but expressed relief and appreciation that she could (see above). goal is home/comfort. does not seem to need hospice specific care to meet her needs at this time so home nursing for now seems quite appropriate. anticipate home tomorrow. otherwise as above Subjective No acute events overnight. Diarrhea has slowed somewhat. Patient participated in PT today. Review of Systems Constitutional: + weakness Gastrointestinal: + diarrhea/loose stools (Voluminous, orange-colored stools) Physical Exam Constitutional: + ill appearing, + frail appearing and cooperative Eyes: + anicteric sclerae ENMT: external ear and nose normal, oropharynx normal Neck: normal visual inspection and trachea midline Respiratory: normal respiratory effort, lungs clear to auscultation Cardiovascular: RRR, no murmur, no edema Heart Sounds: normal S1 and normal S2 Chest (Breasts): Chest: + vascular access device or port (chemo port, R side of chest) Gastrointestinal (Abdomen): normal bowel sounds, soft, nontender, no hepatosplenomegaly Skin: no rashes, warm and dry Psychiatric: A+Ox3, euthymic affect Results & Data ([facility]) Vital Signs (Past 12 Hours) Vital Signs Temp Pulse Resp BP Pulse Ox 08/17/19 11:16 36.6 C 59 L 18 121/72 100 08/17/19 07:31 37 C 64 18 148/80 H 98 08/17/19 03:34 36.9 C 66 18 147/81 H 99 Resident Activity Tracking Resident Involvement: Resident Care Provided Care Provided: Adult Hospital Medicine
[2019-08-17] MEDS ORDERED: ERGOCALCIFEROL 50,000 UNITS CAP PO SCH (13:32)
[2019-08-17] MEDS: LACTOBACILLUS ACIDOPHILUS (FLORANEX) TAB PO SCH (16:19)
[2019-08-17] MEDS: VITAMIN B COMPLEX TAB PO SCH (16:19)
--- NOTE | 2019-08-17 18:26 | Billing Data ---
Date of Service August 17, 2019 Coding Level of Care Code 31370 Subseq Hosp Care Lvl 3
[2019-08-17] MEDS: HEPARIN 100 UNIT/ML 5ML FLUSH FLUSH PRN (20:58)
[2019-08-18] MEDS: LOPERAMIDE HCL 2 MG CAP PO SCH ×6 (01:19→10:18)
[2019-08-18] MEDS: DICLOFENAC SOD 1% GEL 100 GM TUBE EXT SCH (08:45)
[2019-08-18] MEDS: CALCIUM 600MG + VIT D 400 IU TAB PO SCH (08:49)
[2019-08-18] MEDS: CEROVITE ADV FORMULA TAB PO SCH (08:50)
[2019-08-18] MEDS: ACETAMINOPHEN 500 MG TAB PO SCH (08:50)
[2019-08-18] MEDS: FLUTICASONE PROPIONATE NA SPR 16 GM BTL SCH (08:50)
[2019-08-18] MEDS: PSYLLIUM 58.6% POWDER PACKET PO SCH ×2 (08:50→10:19)
[2019-08-18] MEDS: LORATADINE 10 MG TAB PO SCH (08:50)
--- NOTE | 2019-08-18 08:51 | Discharge Summary ---
Date of Service August 18, 2019 Admission HPI Per Admitting Provider 89 y/o F who was referred to the ED by Dr. Dowling for concerns regarding n/v and dehydration. Pt received her 3rd round of chemo on 08/03. She states that she has had progressive n/v/d since this last tx. [facility]F, Mg, K replacement. nursing called pt today as a f/u from that visit and "thought I sounded dehydrated, so they told me to come to the ED". 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 She did have a boost last night and bananas with milk this AM and no emesis with either of those. Her last emesis was last night. She is wearing a diaper now due to the ongoing diarrhea. She feels that she is getting more and more weak every day. "I am ready to . I am not going to kill myself, but I don't want to live like this any more." Pt denies fever, SOB, chest pain, abd pain, LE swelling. Pt states that last night she was having LE cramping/spasms. She states she drank a boost and this resolved. Pt is requesting to speak with a wellness consultant or machine cleaner prior to ordering food. She has many food intolerances and needs to discuss this prior to eating anything at [facility]. Pt has [employer] [employer] in place. Pt was seen by palliative care on last visit. She was set up for home hospice, however declined these services upon arrival to her home after d/c. Admission Exam Per Admitting Provider Constitutional: well developed and + cachectic; not ill appearing Eyes: normal visual olivier by confrontation and + anicteric sclerae Neck: normal visual inspection and trachea midline Respiratory: normal respiratory effort, lungs clear to auscultation Cardiovascular: Rate/Rhythm: regular rate and regular rhythm Gastrointestinal (Abdomen): Inspection/Auscultation: abdomen not distended Percussion/Palpation: abdomen soft; abdomen nontender Musculoskeletal: Head/Neck/Chest: normocephalic and head atraumatic negative for edema, peripheral pulses intact Skin: no rashes, warm and dry Neurologic: awake; not confused Speech / Cognition: normal speech Psychiatric: Orientation: oriented x 3 Affect: + depressed affect Principal Diagnosis Voluminous Diarrhea Discharge Exam Constitutional + ill appearing, + frail appearing and cooperative Eyes + anicteric sclerae ENMT external ear and nose normal, oropharynx normal Neck normal visual inspection and trachea midline Respiratory normal respiratory effort, lungs clear to auscultation Cardiovascular RRR, no murmur, no edema Heart Sounds: normal S1 and normal S2 Chest (Breasts) Chest: + vascular access device or port (chemo port, R side of chest) Gastrointestinal (Abdomen) normal bowel sounds, soft, nontender, no hepatosplenomegaly Skin no rashes, warm and dry Psychiatric A+Ox3, euthymic affect Discharge Data Allergies Allergy/AdvReac Type Severity Reaction Status Date / Time erythromycin base Allergy Severe RASH Verified 08/13/19 11:16 meperidine Allergy Severe Dizziness Verified 08/13/19 11:16 and "itchiness" all over adhesive Allergy Mild RASH Verified 08/13/19 11:16 metaproterenol Allergy Mild RASH Verified 08/13/19 11:16 metronidazole Allergy Mild REDNESS Verified 08/13/19 11:16 povidone-iodine Allergy Mild RASH Verified 08/13/19 11:16 zinc oxide Allergy Mild RASH Verified 08/13/19 11:16 theophylline Allergy Unknown FROM Verified 08/13/19 11:16 UNCODED ALL. diphenhydramine AdvReac Severe SEVERE Verified 08/13/19 11:16 SWEATING AND ITCHING nitroglycerin AdvReac Severe HYPOTENSION Verified 08/13/19 11:16 AND PT PASSES OUT, WAS BROUGHT TO ER. guaifenesin AdvReac Intermediate FROM Verified 08/13/19 11:16 VICODIN COUGH SYRUP-VERTIGO,HYPERALERTNESS lorazepam AdvReac Intermediate oversedation,fecal Verified 08/13/19 11:16 incontinence tramadol AdvReac Intermediate LOW BP Verified 08/13/19 11:16 hydrocodone AdvReac Unknown "VICODIN Verified 08/13/19 11:16 COUGH MED",MORPHINE AND LORTAB OK Consultations 08/13/19 12:32 ED Decision to Admit Stat 08/13/19 16:40 Consult Case Management - Discharge Planning Routine 08/15/19 14:14 Consult Oncology Routine Hospital Course (1) Acute dehydration: Kate Collins is an 89y/o F with metastatic breast cancer, currently undergoing chemotherapy (last Tx on 08/03), admitted on 08/12 for acute worsening of chronic diarrhea, nausea/vomiting, and subsequent dehydration. Acute dehydration - likely secondary to progressive volume loss (voluminous diarrhea, vomiting) stemming from most recent chemo infusion 08/04/19 - she was treated with IV fluid resuscitation and electrolyte replacement as needed Acute on Chronic Diarrhea - patient presented with voluminous, vibrant orange colored stool - patient has history of short gut syndrome, cause of chronic diarrhea - C. 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 Dowling; currently undergoing chemo - most recent infusion 08/03 (tx #3) - per conversation with Dr. Dowling, remaining chemo infusions canceled - patient in agreement with foregoing further chemo infusions Palliative care: - patient met with palliative team on last admission in 06/2019. She was set up with home hospice aniyah discharge, however patient declined services upon arrival to house in favor of trial of chemotherapy - extensive conversation held with patient during this hospitalization regarding [facility] care goals. Conversation revealed some internal disconnect - in one breath Mrs. Collins states she would like to "today", and the next moment she reports an attitude of "never give up." Ultimately, she expresses interest in returning home and remaining comfortable without suffering from chemotherapy side effects and subsequent hospitalizations - hospital case management arranged home health services with PT/OT and who have hospice capabilities - patient intends to arrange for increased assistance from comfort keepers (7 days per week rather than 5, along with additional hours) Cancer related pain: - continue home oxycodone and morphine Rosacea: - continue home Minocycline, if patient desires Total Time Total Time Spent Total Time Spent (In Minutes): <30 Discharge Plan Discharge Items Patient Disposition: Home - Home Health Services Reason For Visit: DEHYDRATION Discharge Diagnosis: Diarrhea Activity: Resume your previous activity Non-emergency contact: Primary Care Provider and Oncologist Call non-emergency contact if: your symptoms worsen Follow-up/Referrals: Foster Garcia MD [Primary Care Provider] - 08/24/19 1:00 pm (You have an appointment with your Dr. Garcia on August 23 at 1:00. Please arrive 15 minutes. If you can not keep this appointmentm please call: [phone].) Diet: Regular Addtl Attending Provider Instructions: You were hospitalized at [facility] for dehydration. Your dehydration was likely caused by your profuse diarrhea and associated vomiting, which you have been experiencing since your most recent chemo infusion. You were treated with IV fluids, fiber supplements and anti-diarrhea medications. As for the cause of your diarrhea, you were tested for infectious causes, all of which were negative. Given the timing, we are therefore presuming your diarrhea, in addition to your nausea and vomiting, are side effects of chemotherapy. Your oncologist Dr. Dowling was contacted during your hospital stay and he canceled all of your upcoming chemotherapy infusions. This will likely help improve your quality of life, as chemotherapy can be debilitating. Dr. Dowling will be arranging for you to have blood work repeated - however as we discussed, it is perfectly ok to decline admission to the hospital if you are happier staying at home. There are always options to arrange fluid infusions as an outpatient as well. The decision is yours to make, and we are always happy to help you discuss options. Please continue to take the metamucil twice a day and the imodium as needed to slow down your diarrhea. Do not exceed 16mg of imodium a day (8 doses). As you continue to improve, and your stool becomes more firm, you can decrease the amount of metamucil and imodium you take a day, to prevent you from becoming constipated. You also expressed a desire to return home with increased help from your comfort keepers. Hospital case management team worked to arrange increased home health services with hospice capabilities. Pending Studies at Discharge: No Stand-Alone Forms: My [facility], Smoking Cessation Medications and DC Order Prescriptions: Continued cyanocobalamin (vitamin B-12) 250 mcg lozenge 250 mcg PO HS RF: 0 Lactobacillus acidophilus [Acidophilus] Capsule 100 mmu cells PO QDD RF: 0 loratadine 10 mg tablet 10 mg PO BID RF: 0 cranberry conc-ascorbic acid 1 cap PO QDL RF: 0 vitamin B complex capsule 1 cap PO QDD RF: 0 acetaminophen 500 mg capsule 500 mg PO BID RF: 0 coenzyme Q10 [Co Q-10] 10 mg capsule 10 mg PO QDD RF: 0 biotin 5 mg capsule 5 mg PO QAM RF: 0 minocycline 50 mg capsule 50 mg PO QAM RF: 0 morphine 10 mg/5 mL Solution 1 - 5 mg PO Q6H PRN (Reason: Pain) RF: 0 zafirlukast [Accolate] 20 mg tablet 20 mg PO DAILY@0200 RF: 0 fluticasone propionate [Allergy Relief (fluticasone)] 50 mcg/actuation [place],Suspension 1 spray INTRANASAL BID RF: 0 Centrum 9 mg iron/ 15 mL (15 mL) Liquid 15 ml PO QAM RF: 0 ergocalciferol (vitamin D2) 50,000 unit capsule 50,000 units PO TUTH RF: 0 diclofenac sodium 1 % kit 4 gm TOP UD RF: 0 calcium carbonate-vitamin D3 500 mg(1,250mg) -200 unit powder in packet 1 ea PO BIDM RF: 0 oxycodone 5 mg Tablet 5 - 10 mg PO UD PRN (Reason: Pain) RF: 0 ondansetron HCl 8 mg tablet 8 mg PO Q8H PRN (Reason: Nausea And Vomiting) RF: 0 Discharge Orders: Discharge Order (Routine); Ordered 08/18/19 Ordered By: Lisbeth Harris Admission Data Admit Date/Time: 08/15/19 08:24 Attending Provider: Ernie Trent Admit Provider: Valentina Galindo Primary Care Provider: Foster Garcia Other Providers: Valentina Galindo ; Curt Dowling ; Ashwini Olivo ; [facility],Home Healthcare Other Interventions: Discharge Summary Assessment (RN) Last Done: 08/18/19 11:20 DC Date/Time DO NOT enter until pt leaves facility: 08/18/19 12:09 Supervising Physician Co-Signing Physician Notes I personally examined the patient and verified all amado points of history and exam, discussed case, and agree with decision making with Dr Byrnes. diarrhea to the point that she can manage at home. quite pleased with care here. discusses follow up with dr sosa but also discusses that she doesn't want more chemo. expresses overriding goal of wanting to be out of hospital and happy. ok with dying. vitals awake alert and interactive, heent nc at mmm breathing unlabored no accessory muscles good effort skin no rashes no pallor or icterus toxic gastroenteritis / diarrhea from chemo / metabolic acidosis from diarrhea - short gut + chemo - doing better on loperamide and fiber. home, comfort goal. doesn't want formal hospice consult right now and medical needs appear to be easy to meet - so conventional home health appearing appropriate right now. di scussed following bowel habits to avoid risk of rebound constipation if diarrhea regimen "works too well" goals of care - ok with dying. seemed to need permission to stop chemo but expressed relief and appreciation that she could (see above). goal is home/comfort. stable for home today. othewrise as above otherwise as above Resident Activity Tracking Resident Involvement: Resident Care Provided Care Provided: Adult Hospital Medicine
[2019-08-18 11:45] VITALS: BP 138/85; PULSE 72; TEMP 97.3; O2SAT 100
--- NOTE | 2019-08-18 18:22 | Billing Data ---
Date of Service August 18, 2019 Coding Level of Care Code D/C Day Management <30 mins
== END 2019-08-18 12:09 | disposition home health service (06) | DRG 394 ==
LOC: 4W 10:20 → ED 10:20 → SUATTDRO 13:49 → 4W 16:04 → SUATTDRO 08-15 08:24